=== PATIENT | female | born 1950 | race Caucasian/White ===

== ENCOUNTER 2019-01-25 20:51 | Inpatient (IN) | payer MEDICARE, BC ==
[~2019-01-25] VITALS: Ht 162.6 cm; Wt 153.0 kg
[2019-01-25] MEDS ORDERED: normal saline 1000ML IV soln IVB ONE (21:10)
[2019-01-25] MEDS ORDERED: CefTRIAXone/D5W-Rocephin 1gm 50 ML IV ONE ×2 (21:10→22:20)
[2019-01-25] MEDS ORDERED: fentaNYL/PF 50MCG/1 ML 2ML syringe IV ONE (21:15)
[2019-01-25] MEDS ORDERED: ondansetron/PF 4mg/2ml inj IV ONE (21:15)
[2019-01-25] MEDS ORDERED: acetaminophen 325mg tablet PO ONE (21:20)
[2019-01-25 21:51] LABS: PARTIAL THROMBOPLASTIN TIME 28 SECONDS (22-32)
[2019-01-25 22:01] LABS: ALANINE AMINOTRANSFERASE 19 U/L (12-78); ALBUMIN 3.3 G/DL (3.4-5.0); ALBUMIN/GLOBULIN RATIO 0.8 (1.1-1.5); ALKALINE PHOSPHATASE 73 IU/L (46-116); ANION GAP 12 (8-16); ASPARTATE AMINO TRANSFERASE 26 U/L (10-37); BILIRUBIN,TOTAL 0.9 MG/DL (0.1-1.0); BLOOD UREA NITROGEN 16 MG/DL (7-18); BUN/CREATININE RATIO 11.3 (6.6-38.0); CALCIUM 9.1 MG/DL (8.5-10.1); CHLORIDE 105 MMOL/L (99-107); CREATININE 1.42 MG/DL (0.40-0.90); GLUCOSE 125 MG/DL (70-104); SODIUM 141 MMOL/L (135-145); TOTAL CARBON DIOXIDE 24.1 MMOL/L (24-32); TOTAL PROTEIN 7.6 G/DL (6.4-8.2); eGFR 36 ML/MIN
[2019-01-25 22:02] LABS: BASOPHILS # (AUTO) 0.3 X10'3 (0-0.2); BASOPHILS % (AUTO) 1.2 % (0-1); EOSINOPHILS % (AUTO) 0 % (0-6); HEMATOCRIT 54.4 % (35.0-45.0); HEMOGLOBIN 17.7 g/dl (12.0-16.0); LYMPHOCYTES # (AUTO) 0.5 X10'3 (1.1-4.8); LYMPHOCYTES % (AUTO) 2.2 % (21-51); MEAN CORPUSCULAR HEMOGLOBIN 28.2 PG (27.0-31.0); MEAN CORPUSCULAR HGB CONC 32.5 g/dL (33.0-36.5); MEAN CORPUSCULAR VOLUME 86.6 FL (78-98); MEAN PLATELET VOLUME 10.2 FL (7.4-10.4); MONOCYTES # (AUTO) 0.8 X10'3 (0-0.9); MONOCYTES % (AUTO) 3.6 % (2-12); NEUTROPHILS # (AUTO) 20.2 X10'3 (1.8-7.7); PLATELET COUNT 189 X10'3 (140-440); POTASSIUM 4.2 MMOL/L (3.5-5.1); RED BLOOD COUNT 6.28 X10'6 (4.20-5.60); RED CELL DISTRIBUTION WIDTH 15.6 % (11.5-14.5); WHITE BLOOD COUNT 21.8 X10'3 (4.5-11.0)
[2019-01-25] MEDS ORDERED: levoFLOXACIN-Levaquin 750MG/D5 150 ML IV STA (22:17)
[2019-01-25] MEDS ORDERED: normal saline 1000ml 1,000 ML IV ONE (22:20)
--- NOTE | 2019-01-25 22:21 | NUR ---
PT UP TO USE BEDSIDE COMMODE
[2019-01-25] MEDS ORDERED: FLUT1BLS3 INH (23:01)
[2019-01-25] MEDS ORDERED: IBUP-1986 PO (23:01)
[2019-01-25] MEDS ORDERED: LISI10TA4 PO (23:01)
[2019-01-25] MEDS ORDERED: FLUT1DIS7 INH (23:09)
[2019-01-25] MEDS ORDERED: FURO20TA4 PO (23:09)
[2019-01-25] MEDS ORDERED: METF500T PO (23:09)
[2019-01-25] MEDS ORDERED: IPRA4AER IH (23:09)
[2019-01-25] MEDS ORDERED: BACL10TA PO (23:09)
[2019-01-25] MEDS ORDERED: OXYB5TAB16 PO (23:09)
[2019-01-25] MEDS ORDERED: ROPI0.252 PO (23:09)
[2019-01-25] MEDS ORDERED: AMLO10TA PO (23:09)
[2019-01-25] MEDS ORDERED: TIOT18CA3 INH (23:09)
[2019-01-25] MEDS ORDERED: SIMV10TA2 PO (23:09)
[2019-01-25] MEDS ORDERED: POT CHLORIDE PO (23:09)
[2019-01-25] MEDS ORDERED: MAGN27TA2 PO (23:13)
[2019-01-25] MEDS ORDERED: ASPI-1265 PO (23:13)
[2019-01-26] VITALS (24 sets, daily range): BP systolic 72–227; BP diastolic 43–108
[2019-01-26] MEDS ORDERED: fentaNYL/PF 50MCG/1 ML 2ML syringe IV ONE (00:25)
[2019-01-26] MEDS ORDERED: ketamine 10mg/ml 20ml inj 30 MG in normal saline 100ml IV soln 97 ML IV ONE (00:55)
[2019-01-26] MEDS ORDERED: morphine 2 MG/ML inj. syringe IV PRN (01:05)
[2019-01-26] MEDS ORDERED: morphine 4 MG/ML inj SYRINge IV PRN ×3 (01:05→15:00)
[2019-01-26] MEDS ORDERED: potassium Cl 20mEq/100mL bag 100 ML IV PRN (01:05)
[2019-01-26] MEDS ORDERED: potassium Cl 20 mEq SR tablet PO PRN (01:05)
[2019-01-26] MEDS ORDERED: ondansetron/PF 4mg/2ml inj IV PRN ×3 (01:05→17:35)
[2019-01-26] MEDS ORDERED: acetaminophen 650mg rectal suppository RC PRN (01:05)
[2019-01-26] MEDS: K, MAG and/or Phos replacement - Verify level? MC SCH ×2 (01:05→08:00)
[2019-01-26] MEDS ORDERED: glucagon, human recombinant 1mg kit SUBCUT PRN (01:30)
[2019-01-26] MEDS ORDERED: dextrose 50%-water 50ml dispensing syringe IV PRN ×2 (01:30)
[2019-01-26] MEDS ORDERED: insulin Lispro (HumaLOG) vial - multi-dose SQ SCH (01:30)
[2019-01-26] MEDS ORDERED: MESSAGE TO PHARMACY PO ONE (01:30)
[2019-01-26] MEDS ORDERED: dextrose ORAL solution 15 GM/59 ML bottle PO PRN ×2 (01:30)
[2019-01-26] MEDS ORDERED: ipratropium/albuterol 3ml nebule IH PRN (02:10)
[2019-01-26] MEDS ORDERED: morphine 4 MG/ML inj SYRINge IV ONE (02:15)
[2019-01-26] MEDS: NORepinephrine 8mg/ 250ml NS 250 ML IV SCH ×2 (02:21→20:37)
--- NOTE | 2019-01-26 02:23 | NUR ---
MD AT FOR CENTRAL LINE. INSTRUCTED TO INCREASE NOREPI TO 5 MG/MIN.
--- NOTE | 2019-01-26 03:00 | NUR ---
Patient in room CICU 2011. I have received report from Wm FLORES and had the opportunity to ask questions and assume patient care.
[2019-01-26] MEDS: normal saline 1000ml 1,000 ML IV SCH ×3 (03:02→21:05)
[2019-01-26 03:18] LABS: CLARITY,URINE CLOUDY (Clear); COLOR,URINE AMBER (Yellow); GLUCOSE, URINE NEGATIVE (Neg); KETONES,URINE TRACE mg/dl (Neg); LEUKOCYTE ESTERASE ,URINE MODERATE (Neg); NITRITES, URINE NEGATIVE (Neg); OCCULT BLOOD,URINE LARGE (Neg); PH,URINE 5.5 (4.8-8.0); PROTEIN,URINE 100 mg/dl (Neg); UROBILINOGEN,URINE 0.2 E.U/dL (0.2-1.0)
[2019-01-26 03:19] LABS: UA COLLECTION TYPE FOLEY CATH
[2019-01-26 03:24] LABS: BACTERIA,URINE 4+ /HPF (Neg); MUCUS STRANDS NONE SEEN /LPF (Neg); SQUAMOUS EPITHELIAL CELL,UR FEW /LPF (FEW); TRANSITIONAL EPI CELLS,URINE FEW /HPF; WBC,URINE 50-100 /HPF (0-4)
[2019-01-26] MEDS: acetaminophen 325mg tablet PO PRN ×3 (04:16→19:00)
[2019-01-26 04:51] LABS: ANION GAP 9 (8-16); BLOOD UREA NITROGEN 17 MG/DL (7-18); BUN/CREATININE RATIO 12.7 (6.6-38.0); CALCIUM 6.2 MG/DL (8.5-10.1); CHLORIDE 109 MMOL/L (99-107); CREATININE 1.34 MG/DL (0.40-0.90); GLUCOSE 111 MG/DL (70-104); SODIUM 141 MMOL/L (135-145); TOTAL CARBON DIOXIDE 23.3 MMOL/L (24-32); eGFR 39 ML/MIN
[2019-01-26 05:01] LABS: OXYGEN SATURATION (MIXED VEN) 66.3 % (60-80); PO2 MIXED VENOUS (TEMP COR) 44.9 mmHg (35-46)
[2019-01-26 05:44] LABS: TROPONIN I < 0.04 NG/ML (0.0-0.05)
[2019-01-26 06:08] LABS: EOSINOPHILS % (AUTO) 0 % (0-6); MEAN CORPUSCULAR HEMOGLOBIN 28.1 PG (27.0-31.0); MEAN CORPUSCULAR HGB CONC 31.9 g/dL (33.0-36.5)
[2019-01-26 06:10] LABS: BASOPHILS # (AUTO) 0.3 X10'3 (0-0.2); BASOPHILS % (AUTO) 1.2 % (0-1); HEMATOCRIT 47.3 % (35.0-45.0); HEMOGLOBIN 15.1 g/dl (12.0-16.0); LYMPHOCYTES # (AUTO) 0.6 X10'3 (1.1-4.8); MEAN PLATELET VOLUME 10.6 FL (7.4-10.4); MONOCYTES # (AUTO) 0.8 X10'3 (0-0.9); MONOCYTES % (AUTO) 2.6 % (2-12); NEUTROPHILS # (AUTO) 27.2 X10'3 (1.8-7.7); NEUTROPHILS % (AUTO) 94.2 % (42-75); PLATELET COUNT 166 X10'3 (140-440); RED BLOOD COUNT 5.37 X10'6 (4.20-5.60); RED CELL DISTRIBUTION WIDTH 15.6 % (11.5-14.5)
--- NOTE | 2019-01-26 06:13 | NUR ---
Problems reprioritized. Patient report given, questions answered & plan of care reviewed with Teresa FLORES.
[2019-01-26 06:35] LABS: WHITE BLOOD COUNT 28.9 X10'3 (4.5-11.0)
[2019-01-26 06:42] LABS: LARGE PLATELETS FEW; PLATELET ESTIMATE NORMAL; TOTAL CELLS COUNTED 100
[2019-01-26 06:43] LABS: ANISOCYTOSIS FEW; TOXIC VACUOLATION 1+
[2019-01-26] MEDS: amLODIPine 5mg tablet PO SCH (07:09)
[2019-01-26] MEDS: lactobacillus rhamnosus 10,000 MMU CELLS/CAPSULE PO SCH ×3 (07:24→20:38)
[2019-01-26] MEDS: aspirin 81mg tab.chew PO SCH (07:24)
[2019-01-26] MEDS: oxybutynin 5mg tablet PO SCH ×3 (07:24→20:37)
[2019-01-26] MEDS: pantoprazole 40 MG vial IV SCH (07:24)
[2019-01-26] MEDS ORDERED: ipratropium/albuterol 3ml nebule ONE (07:39)
[2019-01-26] MEDS: ipratropium/albuterol 3ml nebule NEB SCH ×4 (07:40→23:28)
[2019-01-26] MEDS: budesonide 0.5mg/2ml UD nebule IH SCH ×2 (07:41→20:00)
[2019-01-26] MEDS ORDERED: non-formulary drug (Fluticasone/Vilanterol (Breo Ellipta 200-25 Mcg INH) 1 PUFF) INH SCH (08:00)
[2019-01-26] MEDS ORDERED: ipratropium 0.5 MG/2.5ML nebule IH SCH (08:00)
[2019-01-26] MEDS ORDERED: albuterol 2.5 MG/3 ML nebule NEB SCH (08:00)
[2019-01-26] MEDS: piperacillin/tazo 4.5gm/100ml 100 ML IV SCH ×2 (09:56→19:02)
[2019-01-26] MEDS ORDERED: hydrALAZINE 20mg/ml inj. IV PRN (15:00)
[2019-01-26] MEDS ORDERED: ringers solution, lacted 1,000 ML IV SCH ×2 (15:00→17:31)
[2019-01-26] MEDS ORDERED: fentaNYL/PF 50MCG/1 ML 2ML syringe IV PRN ×2 (15:00)
[2019-01-26] MEDS ORDERED: enalaprilat dihydrate 2.5mg/2ml vial IV PRN (15:00)
[2019-01-26] MEDS ORDERED: ringers solution, lacted 1,000 ML IV ONE (15:00)
[2019-01-26] MEDS ORDERED: iohexol 300 MG/1 ML 50ml polymer ONE (16:31)
[2019-01-26] MEDS ORDERED: midazolam 2 mg/2 ml injection ONE (16:55)
[2019-01-26] MEDS ORDERED: fentaNYL/PF 50MCG/1 ML 2ML syringe ONE (16:55)
[2019-01-26] MEDS ORDERED: etomidate 2mg/ml inj. ONE (16:56)
[2019-01-26] MEDS ORDERED: succinylcholine 20mg/ml inj IV ONE (16:57)
[2019-01-26] MEDS ORDERED: MIDAZolam 1mg/ml 10ml vial ONE (17:16)
[2019-01-26] MEDS ORDERED: rocuronium 10mg/ml inj IV ONE (17:22)
[2019-01-26] MEDS ORDERED: ipratropium/albuterol 3ml nebule IH ONE (17:35)
[2019-01-26] MEDS: FENTANYL-0.9 % NACL/PF 100 ML IV PRN (18:33)
[2019-01-26] MEDS: midazolam 100mg in NS 100ml 100 ML IV PRN (18:34)
[2019-01-26] MEDS ORDERED: labetalol 20mg/4ml (5mg/ml) syringe IV PRN (18:50)
[2019-01-26] MEDS ORDERED: acetaminophen 1,000mg/100ml IV 100 ML IV STA (19:14)
[2019-01-26 19:18] LABS: BASOPHILS % (AUTO) 0.2 % (0-1); EOSINOPHILS % (AUTO) 0 % (0-6); HEMATOCRIT 50.7 % (35.0-45.0); HEMOGLOBIN 16.4 g/dl (12.0-16.0); LYMPHOCYTES # (AUTO) 0.6 X10'3 (1.1-4.8); LYMPHOCYTES % (AUTO) 3.5 % (21-51); MEAN CORPUSCULAR HEMOGLOBIN 28.9 PG (27.0-31.0); MEAN CORPUSCULAR HGB CONC 32.4 g/dL (33.0-36.5); MEAN CORPUSCULAR VOLUME 89.2 FL (78-98); MEAN PLATELET VOLUME 10.5 FL (7.4-10.4); MONOCYTES # (AUTO) 0.3 X10'3 (0-0.9); MONOCYTES % (AUTO) 1.6 % (2-12); NEUTROPHILS # (AUTO) 16.3 X10'3 (1.8-7.7); NEUTROPHILS % (AUTO) 94.7 % (42-75); PLATELET COUNT 150 X10'3 (140-440); RED BLOOD COUNT 5.68 X10'6 (4.20-5.60); RED CELL DISTRIBUTION WIDTH 15.7 % (11.5-14.5); WHITE BLOOD COUNT 17.2 X10'3 (4.5-11.0)
[2019-01-26 19:31] LABS: ALANINE AMINOTRANSFERASE 28 U/L (12-78); ALBUMIN 2.5 G/DL (3.4-5.0); ALBUMIN/GLOBULIN RATIO 0.6 (1.1-1.5); ALKALINE PHOSPHATASE 55 IU/L (46-116); ANION GAP 11 (8-16); ASPARTATE AMINO TRANSFERASE 27 U/L (10-37); BILIRUBIN,TOTAL 0.9 MG/DL (0.1-1.0); BLOOD UREA NITROGEN 30 MG/DL (7-18); BUN/CREATININE RATIO 15.1 (6.6-38.0); CALCIUM 7.6 MG/DL (8.5-10.1); CHLORIDE 106 MMOL/L (99-107); CREATININE 1.99 MG/DL (0.40-0.90); GLUCOSE 145 MG/DL (70-104); MAGNESIUM 1.7 MG/DL (1.5-2.4); PHOSPHORUS 5.4 MG/DL (2.3-4.5); SODIUM 140 MMOL/L (135-145); TOTAL CARBON DIOXIDE 23.5 MMOL/L (24-32); TOTAL PROTEIN 6.7 G/DL (6.4-8.2); eGFR 25 ML/MIN
[2019-01-26 19:32] LABS: PARTIAL THROMBOPLASTIN TIME 35 SECONDS (22-32); POTASSIUM 4.9 MMOL/L (3.5-5.1)
[2019-01-26 20:05] LABS: ABG HCO3 20.7 mmol/L (22.0-26.0); ABG OXYGEN SATURATION 95.5 % (95-98); ABG PCO2 (T) 68.2 mmHg (35.0-45.0); ABG PH (T) 7.118 (7.350-7.450); ABG PO2 (T) 102.9 mmHg (83-108); FCOHb 1.2 % (0.5-1.5); FMetHb 0.5 % (0.3-1.12); FO2Hb 93.9 % (94-100); MINUTE VOLUME 9 L/min; PEEP 5 cm H2O; RESPIRATORY RATE 18 b/min; RESPIRATORY RATE (OBSERVED) 20 b/min; TOTAL HEMOGLOBIN 16.6 G/dl (12.0-16.0)
--- NOTE | 2019-01-26 20:06 | NUR ---
Patient in room CICU 2011. I have received report from TWAN FLORES and had the opportunity to ask questions and assume patient care.
[2019-01-26] MEDS ORDERED: DOBUTamine-DoBUTrex 500mg/D5W 250 ML IV SCH (20:15)
[2019-01-26] MEDS: atorvastatin 10mg tablet PO SCH ×2 (20:38→21:00)
[2019-01-26] MEDS ORDERED: methylPREDNISolone sod succ 125mg/2ml vial IV ONE (20:45)
[2019-01-26] MEDS: ROPINIRole 0.25mg tablet PO SCH (21:00)
[2019-01-26] MEDS: insulin glargine (Lantus) pen - multi-dose SQ SCH (21:00)
[2019-01-26] MEDS ORDERED: vasoPRESSIN 20 units/ml inj. ONE ×2 (21:03→21:07)
[2019-01-26] MEDS: vasopressin inj. 20 UNIT in normal saline 100ml IV soln 39 ML IV SCH (21:15)
--- NOTE | 2019-01-26 23:38 | NUR ---
pt returned directly from OR, appearing unstable and on the ventilator at change of shift. x ray taken when pt arrived. her SBP was 200-220s, temp was 38.6 and eventually climbed to 40 degrees within an hour despite cooling measures. during this time I phoned Dr Kelly, who was still covering the day shift, to update him on pt. I gave 10mg labetalol IVP per his orders with effect to hypertension. we initiated cooling measures with ice, cooling blanket, fans, as well as admin of PO tylenol via an OG that was placed. Andrew ferguson RN soon after spoke with Linda party plan sales unit sales leader and got an order for IV tylenol. this was effective in bringing down the temp which is now 38.1. starting doses of fentanyl and versed were began, where they remain currently at 2mg versed and 25mcg fentanyl. pt has been waking periodically and is able to follow commands however she is anxious with care. the patiently steadily declined blood pressure cash, and began requiring levophed as she had before and during surgery. the levophed eventually reached a max of 40mcg. when the pt began approaching the max dose i again phoned Linda. he wanted to trial a dobutamine gtt at 5mcg, which was not effective. blood pressure continued to decline with MAP in 50s. phoned him again, received orders for vasopressin gtt as well as steroid IVP. at this point the pt began to turn around and her BP has improved. she is requiring 20mcg of levophed and 1.8 of vasopressin with MAP in the 70s, SPB 90s. pt fiO2 just turned down from 75% to 85%. the pt daughter was briefly at bedside after pt return from OR and was updated on pt situation. her contact info is in physical chart. pt urine is yellow and cloudy, minimal output. small amount of dark green out of OGT. lt radial art line was difficult to place per OR team. it is extremely positional, however it does match cuff pressure when the waveform is adequate.
[2019-01-27] VITALS (23 sets, daily range): BP systolic 98–134; BP diastolic 57–84
[2019-01-27] MEDS: piperacillin/tazo 4.5gm/100ml 100 ML IV SCH ×3 (01:06→16:28)
[2019-01-27 02:34] LABS: BASOPHILS # (AUTO) 0.1 X10'3 (0-0.2); BASOPHILS % (AUTO) 0.3 % (0-1); EOSINOPHILS % (AUTO) 0 % (0-6); HEMATOCRIT 47.1 % (35.0-45.0); LYMPHOCYTES # (AUTO) 0.6 X10'3 (1.1-4.8); LYMPHOCYTES % (AUTO) 2.4 % (21-51); MEAN CORPUSCULAR HEMOGLOBIN 28.1 PG (27.0-31.0); MEAN CORPUSCULAR HGB CONC 31.9 g/dL (33.0-36.5); MEAN CORPUSCULAR VOLUME 88.3 FL (78-98); MEAN PLATELET VOLUME 10.2 FL (7.4-10.4); MONOCYTES # (AUTO) 0.5 X10'3 (0-0.9); NEUTROPHILS # (AUTO) 23.2 X10'3 (1.8-7.7); NEUTROPHILS % (AUTO) 95.3 % (42-75); PLATELET COUNT 150 X10'3 (140-440); RED BLOOD COUNT 5.34 X10'6 (4.20-5.60); RED CELL DISTRIBUTION WIDTH 15.6 % (11.5-14.5); WHITE BLOOD COUNT 24.4 X10'3 (4.5-11.0)
[2019-01-27 02:46] LABS: ALANINE AMINOTRANSFERASE 26 U/L (12-78); ALBUMIN 2.2 G/DL (3.4-5.0); ALBUMIN/GLOBULIN RATIO 0.6 (1.1-1.5); ALKALINE PHOSPHATASE 51 IU/L (46-116); ANION GAP 16 (8-16); ASPARTATE AMINO TRANSFERASE 21 U/L (10-37); BILIRUBIN,TOTAL 0.9 MG/DL (0.1-1.0); BLOOD UREA NITROGEN 36 MG/DL (7-18); BUN/CREATININE RATIO 15.5 (6.6-38.0); CALCIUM 7.6 MG/DL (8.5-10.1); CHLORIDE 106 MMOL/L (99-107); CREATININE 2.32 MG/DL (0.40-0.90); GLUCOSE 197 MG/DL (70-104); MAGNESIUM 1.6 MG/DL (1.5-2.4); PHOSPHORUS 4.3 MG/DL (2.3-4.5); SODIUM 139 MMOL/L (135-145); TOTAL CARBON DIOXIDE 17.2 MMOL/L (24-32); TOTAL PROTEIN 6.2 G/DL (6.4-8.2); eGFR 21 ML/MIN
[2019-01-27 02:48] LABS: POTASSIUM 4.5 MMOL/L (3.5-5.1)
--- NOTE | 2019-01-27 03:09 | NUR ---
pt down to 8mcg of levophed, vasopressin is off.
[2019-01-27] MEDS: NORepinephrine 8mg/ 250ml NS 250 ML IV SCH ×2 (04:27→09:42)
[2019-01-27 05:35] LABS: ABG BASE EXCESS -5.6 mmol/L (-2.0-3.0); ABG HCO3 17.9 mmol/L (22.0-26.0); ABG OXYGEN SATURATION 95.5 % (95-98); ABG PCO2 (T) 30.4 mmHg (35.0-45.0); ABG PH (T) 7.389 (7.350-7.450); ABG PO2 (T) 71.6 mmHg (83-108); FCOHb 0.3 % (0.5-1.5); FMetHb 0.2 % (0.3-1.12); MINUTE VOLUME 16 L/min; PEEP 5 cm H2O; RESPIRATORY RATE 22 b/min; RESPIRATORY RATE (OBSERVED) 22 b/min; TOTAL HEMOGLOBIN 15.6 G/dl (12.0-16.0)
[2019-01-27] MEDS ORDERED: famotidine/PF 10 mg/ml inj IV ONE (06:00)
--- NOTE | 2019-01-27 06:15 | NUR ---
Problems reprioritized. Patient report given, questions answered & plan of care reviewed with TWAN FLORES.
--- NOTE | 2019-01-27 06:32 | NUR ---
Patient in room CICU 2011. I have received report from SANDRA Key and had the opportunity to ask questions and assume patient care.
[2019-01-27] MEDS: normal saline 1000ml 1,000 ML IV SCH (07:05)
[2019-01-27] MEDS: oxybutynin 5mg tablet PO SCH ×2 (07:39→20:39)
[2019-01-27] MEDS: lactobacillus rhamnosus 10,000 MMU CELLS/CAPSULE PO SCH ×2 (07:39→20:39)
[2019-01-27] MEDS: pantoprazole 40 MG vial IV SCH (07:39)
[2019-01-27] MEDS: aspirin 81mg tab.chew PO SCH (07:39)
[2019-01-27] MEDS: K, MAG and/or Phos replacement - Verify level? MC SCH (08:00)
[2019-01-27] MEDS: amLODIPine 5mg tablet PO SCH (08:00)
[2019-01-27] MEDS: ipratropium/albuterol 3ml nebule NEB SCH ×3 (08:10→22:48)
[2019-01-27] MEDS: budesonide 0.5mg/2ml UD nebule IH SCH ×2 (08:10→18:54)
[2019-01-27] MEDS ORDERED: dextrose 50%-water 50ml dispensing syringe IV PRN (09:35)
--- NOTE | 2019-01-27 09:41 | NUR ---
Levophed back on at 2mcg/hr for persistent low sbp and map less than 60.
[2019-01-27] MEDS: methylPREDNISolone sod succ 125mg/2ml vial IV SCH ×3 (09:51→20:00)
[2019-01-27] MEDS: insulin regular, human 100 UNIT in normal saline 100ml IV soln 99 ML IV SCH ×2 (11:11)
[2019-01-27] MEDS ORDERED: methylPREDNISolone sod succ 125mg/2ml vial IV ONE (14:25)
--- NOTE | 2019-01-27 14:54 | NUR ---
TF consult: Pt currently intubated s/p ureteric stone removal with cystoscopy and ureteral stent placement per MD notes. TF recommendations below calculated to meet 100% of patient's estimated nutrient needs. Recommend Glucerna 1.2 with goal rate of 85 mL/hr however pt may benefit from formula change to Vital High Protein once back in stock as current recommended TF rate will meet minimum protein requirements for pt. Pt admit with sepsis and nephrolithiasis. Toni score 12, skin intact per physical assessment. LBM 01/26. Will continue to follow. Recommendations: 1) Continuous TF using Glucerna 1.2 via OG tube to begin at 20 mL/hr and advance by 20 mL Q8H as tolerated to goal rate of 85 mL/hr to provide: 2040 mL total volume/day, 2448 kcal, 122 g protein, and 1642 mL/water 2) Will f/u tomorrow to discuss fluid flushes with personnel assistant 3) Prealbumin q /; daily weights 4) Monitor need for change in formula 5) Once extubated advance to heart healthy CHO controlled diet as medically indicated Addendum: 01/27/19 at [address] Amended: Links added.
[2019-01-27] MEDS ORDERED: VANCOMYCIN LEVEL IV ONE (15:30)
[2019-01-27] MEDS: midazolam 100mg in NS 100ml 100 ML IV PRN (16:26)
[2019-01-27] MEDS: atorvastatin 10mg tablet PO SCH (20:39)
[2019-01-27] MEDS: ROPINIRole 0.25mg tablet PO SCH (20:39)
[2019-01-27] MEDS: insulin glargine (Lantus) pen - multi-dose SQ SCH (21:00)
[2019-01-28] VITALS (23 sets, daily range): BP systolic 98–135; BP diastolic 59–84
[2019-01-28] MEDS: normal saline 1000ml 1,000 ML IV SCH ×2 (00:15→03:05)
[2019-01-28] MEDS: piperacillin/tazo 4.5gm/100ml 100 ML IV SCH ×2 (00:15→07:14)
[2019-01-28 02:57] LABS: BASOPHILS % (AUTO) 0.2 % (0-1); EOSINOPHILS % (AUTO) 0 % (0-6); HEMATOCRIT 42.8 % (35.0-45.0); LYMPHOCYTES # (AUTO) 0.7 X10'3 (1.1-4.8); MEAN CORPUSCULAR HEMOGLOBIN 28.3 PG (27.0-31.0); MEAN CORPUSCULAR HGB CONC 32.7 g/dL (33.0-36.5); MEAN CORPUSCULAR VOLUME 86.5 FL (78-98); MONOCYTES # (AUTO) 0.5 X10'3 (0-0.9); MONOCYTES % (AUTO) 2.6 % (2-12); NEUTROPHILS # (AUTO) 17.4 X10'3 (1.8-7.7); NEUTROPHILS % (AUTO) 93.2 % (42-75); PLATELET COUNT 112 X10'3 (140-440); RED BLOOD COUNT 4.95 X10'6 (4.20-5.60); RED CELL DISTRIBUTION WIDTH 15.6 % (11.5-14.5); WHITE BLOOD COUNT 18.6 X10'3 (4.5-11.0)
[2019-01-28] MEDS: methylPREDNISolone sod succ 125mg/2ml vial IV SCH ×2 (03:03→15:23)
[2019-01-28 03:14] LABS: ALANINE AMINOTRANSFERASE 23 U/L (12-78); ALBUMIN 1.9 G/DL (3.4-5.0); ALBUMIN/GLOBULIN RATIO 0.5 (1.1-1.5); ALKALINE PHOSPHATASE 43 IU/L (46-116); ANION GAP 15 (8-16); ASPARTATE AMINO TRANSFERASE 14 U/L (10-37); BILIRUBIN,TOTAL 0.4 MG/DL (0.1-1.0); BLOOD UREA NITROGEN 53 MG/DL (7-18); BUN/CREATININE RATIO 24.1 (6.6-38.0); CHLORIDE 108 MMOL/L (99-107); GLUCOSE 163 MG/DL (70-104); MAGNESIUM 1.9 MG/DL (1.5-2.4); PHOSPHORUS 3.6 MG/DL (2.3-4.5); POTASSIUM 3.4 MMOL/L (3.5-5.1); SODIUM 142 MMOL/L (135-145); TOTAL CARBON DIOXIDE 18.6 MMOL/L (24-32); TOTAL PROTEIN 5.7 G/DL (6.4-8.2); eGFR 22 ML/MIN
[2019-01-28] MEDS: ipratropium/albuterol 3ml nebule NEB SCH ×4 (03:15→21:00)
[2019-01-28 03:41] LABS: LARGE PLATELETS FEW; PLATELET ESTIMATE DECREASED
[2019-01-28] MEDS: FENTANYL-0.9 % NACL/PF 100 ML IV PRN (03:53)
[2019-01-28 04:15] LABS: ABG BASE EXCESS -3.5 mmol/L (-2.0-3.0); ABG HCO3 19.1 mmol/L (22.0-26.0); ABG OXYGEN SATURATION 92.1 % (95-98); ABG PCO2 (T) 27.8 mmHg (35.0-45.0); ABG PH (T) 7.452 (7.350-7.450); FCOHb 0.3 % (0.5-1.5); FMetHb 0.1 % (0.3-1.12); FO2Hb 91.7 % (94-100); PATIENT TEMPERATURE 36.2; PEEP 5 cm H2O; RESPIRATORY RATE 22 b/min; RESPIRATORY RATE (OBSERVED) 22 b/min; TOTAL HEMOGLOBIN 15.2 G/dl (12.0-16.0)
[2019-01-28] MEDS: insulin regular, human 100 UNIT in normal saline 100ml IV soln 99 ML IV SCH ×4 (05:32→21:02)
[2019-01-28] MEDS: vasopressin inj. 20 UNIT in normal saline 100ml IV soln 39 ML IV SCH (06:25)
--- NOTE | 2019-01-28 06:36 | NUR ---
Problems reprioritized. Patient report given, questions answered & plan of care reviewed with Indy FLORES.
--- NOTE | 2019-01-28 06:45 | NUR ---
Patient in room CICU 2011. I have received report from SANDRA Noriega and had the opportunity to ask questions and assume patient care.
[2019-01-28] MEDS: aspirin 81mg tab.chew PO SCH (07:14)
[2019-01-28] MEDS: lactobacillus rhamnosus 10,000 MMU CELLS/CAPSULE PO SCH ×2 (07:14→20:11)
[2019-01-28] MEDS: oxybutynin 5mg tablet PO SCH ×2 (07:14→20:11)
[2019-01-28] MEDS: potassium Cl 20mEq/100mL bag 100 ML IV PRN ×2 (07:15→08:02)
[2019-01-28] MEDS: K, MAG and/or Phos replacement - Verify level? MC SCH (08:00)
[2019-01-28] MEDS ORDERED: methylPREDNISolone sod succ 125mg/2ml vial IV SCH (08:00)
[2019-01-28] MEDS: amLODIPine 5mg tablet PO SCH (08:00)
[2019-01-28] MEDS: pantoprazole 40 MG vial IV SCH (08:02)
[2019-01-28] MEDS: budesonide 0.5mg/2ml UD nebule IH SCH ×2 (09:52→21:04)
[2019-01-28] MEDS ORDERED: sodium bicarbonate (8.4%) inj. 150 MEQ in dextrose 5%-water 1,000 ML IV SCH (09:55)
[2019-01-28] MEDS: sodium bicarbonate inj. 75 ML in dextrose 5% water 500ml 500 ML IV SCH ×2 (11:14→20:11)
[2019-01-28] MEDS: heparin, porcine 5000 units/ml vial SQ SCH ×2 (12:09→20:12)
[2019-01-28] MEDS: midazolam 100mg in NS 100ml 100 ML IV PRN (15:23)
[2019-01-28] MEDS: piperacillin/tazo 3.375gm/50ml 50 ML IV SCH (15:25)
--- NOTE | 2019-01-28 18:35 | NUR ---
Patient in room CICU 2012. I have received report from Indy FLORES, and had the opportunity to ask questions and assume patient care.
--- NOTE | 2019-01-28 18:38 | NUR ---
Problems reprioritized. Patient report given, questions answered & plan of care reviewed with SANDRA Neff.
--- NOTE | 2019-01-28 19:45 | NUR ---
PT is intubated and mechanically vented, tolerating settings well with no s/s of distress noted at this time. VSS. OT has OG with TF running @ 60ml/hr, will increase to goal as PT tolerated. Allison in place draining to gravity. Bed is locked and low. Bilat soft wrist restraints in place and secure. Will continue to monitor.
[2019-01-28] MEDS: ROPINIRole 0.25mg tablet PO SCH (20:12)
[2019-01-28] MEDS: atorvastatin 10mg tablet PO SCH (20:12)
[2019-01-28] MEDS: insulin glargine (Lantus) pen - multi-dose SQ SCH (20:12)
--- NOTE | 2019-01-28 23:00 | NUR ---
PT resting with no s/s of distress noted at this time. VSS. Bed is locked and low. Bilat soft wrist restraints remain in place and secure. Will continue to monitor.
[2019-01-29] VITALS (24 sets, daily range): BP systolic 103–167; BP diastolic 54–99
[2019-01-29] MEDS: piperacillin/tazo 3.375gm/50ml 50 ML IV SCH ×3 (00:59→15:55)
[2019-01-29] MEDS: methylPREDNISolone sod succ 125mg/2ml vial IV SCH ×3 (00:59→15:55)
--- NOTE | 2019-01-29 02:30 | NUR ---
Insulin gtt turned off per protocol d/t Blood sugar of 80. Will continue to monitor.
[2019-01-29] MEDS: ipratropium/albuterol 3ml nebule NEB SCH ×4 (03:06→21:39)
[2019-01-29 03:55] LABS: ABG BASE EXCESS -3.5 mmol/L (-2.0-3.0); ABG HCO3 22.8 mmol/L (22.0-26.0); ABG OXYGEN SATURATION 90.7 % (95-98); ABG PCO2 (T) 43.6 mmHg (35.0-45.0); ABG PH (T) 7.331 (7.350-7.450); ABG PO2 (T) 57.2 mmHg (83-108); ALLEN'S TEST Positive; FCOHb 0.3 % (0.5-1.5); FMetHb 0.1 % (0.3-1.12); FO2Hb 90.3 % (94-100); MINUTE VOLUME 11 L/min; PATIENT TEMPERATURE 35.9; PEEP 5 cm H2O; RESPIRATORY RATE 20 b/min; RESPIRATORY RATE (OBSERVED) 20 b/min; TOTAL HEMOGLOBIN 15.4 G/dl (12.0-16.0)
[2019-01-29 04:29] LABS: BASOPHILS % (AUTO) 0.1 % (0-1); EOSINOPHILS % (AUTO) 0 % (0-6); HEMATOCRIT 44.9 % (35.0-45.0); HEMOGLOBIN 14.6 g/dl (12.0-16.0); LYMPHOCYTES # (AUTO) 0.7 X10'3 (1.1-4.8); MEAN CORPUSCULAR HEMOGLOBIN 28.4 PG (27.0-31.0); MEAN CORPUSCULAR HGB CONC 32.5 g/dL (33.0-36.5); MEAN CORPUSCULAR VOLUME 87.1 FL (78-98); MEAN PLATELET VOLUME 11.1 FL (7.4-10.4); MONOCYTES # (AUTO) 1.1 X10'3 (0-0.9); MONOCYTES % (AUTO) 6.4 % (2-12); NEUTROPHILS # (AUTO) 15.6 X10'3 (1.8-7.7); NEUTROPHILS % (AUTO) 89.5 % (42-75); PLATELET COUNT 100 X10'3 (140-440); RED BLOOD COUNT 5.16 X10'6 (4.20-5.60); RED CELL DISTRIBUTION WIDTH 15.7 % (11.5-14.5); WHITE BLOOD COUNT 17.4 X10'3 (4.5-11.0)
[2019-01-29 05:27] LABS: ALANINE AMINOTRANSFERASE 29 U/L (12-78); ALBUMIN/GLOBULIN RATIO 0.5 (1.1-1.5); ALKALINE PHOSPHATASE 64 IU/L (46-116); ANION GAP 13 (8-16); ASPARTATE AMINO TRANSFERASE 18 U/L (10-37); BILIRUBIN,TOTAL 0.3 MG/DL (0.1-1.0); BLOOD UREA NITROGEN 61 MG/DL (7-18); BUN/CREATININE RATIO 33.3 (6.6-38.0); CALCIUM 8.5 MG/DL (8.5-10.1); CHLORIDE 110 MMOL/L (99-107); CREATININE 1.83 MG/DL (0.40-0.90); GLUCOSE 108 MG/DL (70-104); MAGNESIUM 2.4 MG/DL (1.5-2.4); PHOSPHORUS 4.5 MG/DL (2.3-4.5); POTASSIUM 4.1 MMOL/L (3.5-5.1); PREALBUMIN 14.2 MG/DL (19-36); SODIUM 146 MMOL/L (135-145); TOTAL CARBON DIOXIDE 23.2 MMOL/L (24-32); eGFR 27 ML/MIN
[2019-01-29 05:53] LABS: LARGE PLATELETS FEW; PLATELET ESTIMATE DECREASED
--- NOTE | 2019-01-29 06:30 | NUR ---
Problems reprioritized. Patient report given, questions answered & plan of care reviewed with Indy FLORES.
[2019-01-29] MEDS: aspirin 81mg tab.chew PO SCH (07:15)
[2019-01-29] MEDS: oxybutynin 5mg tablet PO SCH ×3 (07:15→20:49)
[2019-01-29] MEDS: lactobacillus rhamnosus 10,000 MMU CELLS/CAPSULE PO SCH ×3 (07:15→20:49)
[2019-01-29] MEDS: sodium bicarbonate inj. 75 ML in dextrose 5% water 500ml 500 ML IV SCH ×2 (07:15→15:54)
[2019-01-29] MEDS: amLODIPine 5mg tablet PO SCH (07:15)
[2019-01-29] MEDS: heparin, porcine 5000 units/ml vial SQ SCH ×2 (07:18→20:50)
[2019-01-29] MEDS: pantoprazole 40 MG vial IV SCH (07:22)
[2019-01-29] MEDS: K, MAG and/or Phos replacement - Verify level? MC SCH (08:00)
[2019-01-29] MEDS: budesonide 0.5mg/2ml UD nebule IH SCH ×2 (08:41→21:39)
[2019-01-29] MEDS: insulin regular, human vial - multi-dose SQ SCH ×3 (12:08→21:01)
--- NOTE | 2019-01-29 12:55 | NUR ---
Pt extubated at 1205. Tolerated well. Put on 6L NC. Per Dr. Kelly, okay to take pt off insulin gtt and transition to subq humulin. OGT came out at same time as ETT, BS at 1200 160. Covered pt with 2 units subq insulin for correctional dose. No insulin given for carbs since TF stopped when extubated. Will recheck BS at 1400. Per Dr. Kelly, pt placed on Bipap shortly after extubated since pt is morbidly obese w/ smoking hx and could easily retain CO2. Pt tolerating bipap well
[2019-01-29 14:40] LABS: ABG BASE EXCESS -1.7 mmol/L (-2.0-3.0); ABG HCO3 26.2 mmol/L (22.0-26.0); ABG OXYGEN SATURATION 90.9 % (95-98); ABG PCO2 (T) 55.3 mmHg (35.0-45.0); ABG PH (T) 7.289 (7.350-7.450); ABG PO2 (T) 62.3 mmHg (83-108); ALLEN'S TEST Positive; FCOHb 0.3 % (0.5-1.5); FMetHb 0.3 % (0.3-1.12); FO2Hb 90.4 % (94-100); MINUTE VOLUME 13 L/min; PATIENT TEMPERATURE 36.4; RESPIRATORY RATE 16 b/min; TOTAL HEMOGLOBIN 15.6 G/dl (12.0-16.0)
[2019-01-29] MEDS: vasopressin inj. 20 UNIT in normal saline 100ml IV soln 39 ML IV SCH (15:45)
[2019-01-29 17:16] LABS: ABG HCO3 24.9 mmol/L (22.0-26.0); ABG OXYGEN SATURATION 91.7 % (95-98); ABG PCO2 (T) 45.9 mmHg (35.0-45.0); ABG PH (T) 7.353 (7.350-7.450); ABG PO2 (T) 61.3 mmHg (83-108); ALLEN'S TEST Positive; FCOHb 0.6 % (0.5-1.5); FMetHb 0.3 % (0.3-1.12); FO2Hb 90.9 % (94-100); MINUTE VOLUME 18 L/min; RESPIRATORY RATE 20 b/min; TOTAL HEMOGLOBIN 15.7 G/dl (12.0-16.0)
--- NOTE | 2019-01-29 18:35 | NUR ---
Patient in room CICU 2012. I have received report from Indy FLORES, and had the opportunity to ask questions and assume patient care.
--- NOTE | 2019-01-29 20:00 | NUR ---
PT resting in bed with no s/s of distress noted at this time, VSS. Bipap in place and PT tolerating well, O2 sat >93%. Allison draining to gravity. Bed is locked and low. Call light is within reach. Will continue to monitor.
[2019-01-29] MEDS: atorvastatin 10mg tablet PO SCH ×2 (20:49→21:00)
[2019-01-29] MEDS: ROPINIRole 0.25mg tablet PO SCH ×2 (20:49→21:00)
[2019-01-29] MEDS: insulin glargine (Lantus) pen - multi-dose SQ SCH (21:00)
[2019-01-30] VITALS (24 sets, daily range): BP systolic 121–185; BP diastolic 65–110
--- NOTE | 2019-01-30 | NUR ---
PT sleeping with no s/s of distress noted at this time. VSS. Bed is locked and low. Will continue to monitor.
[2019-01-30] MEDS: sodium bicarbonate inj. 75 ML in dextrose 5% water 500ml 500 ML IV SCH (00:58)
[2019-01-30] MEDS: methylPREDNISolone sod succ 125mg/2ml vial IV SCH ×2 (00:58→08:06)
[2019-01-30] MEDS: piperacillin/tazo 3.375gm/50ml 50 ML IV SCH ×3 (00:58→15:12)
[2019-01-30] MEDS: NORepinephrine 8mg/ 250ml NS 250 ML IV SCH (02:15)
[2019-01-30] MEDS: ipratropium/albuterol 3ml nebule NEB SCH ×5 (03:04→23:29)
[2019-01-30] MEDS: insulin regular, human vial - multi-dose SQ SCH ×2 (03:19→20:28)
[2019-01-30] MEDS ORDERED: VANCOMYCIN LEVEL IV ONE (03:30)
[2019-01-30 03:43] LABS: BASOPHILS % (AUTO) 0.2 % (0-1); EOSINOPHILS % (AUTO) 0.1 % (0-6); HEMATOCRIT 44.7 % (35.0-45.0); HEMOGLOBIN 14.8 g/dl (12.0-16.0); LYMPHOCYTES # (AUTO) 0.5 X10'3 (1.1-4.8); LYMPHOCYTES % (AUTO) 3.8 % (21-51); MEAN CORPUSCULAR HEMOGLOBIN 28.7 PG (27.0-31.0); MEAN CORPUSCULAR HGB CONC 33.1 g/dL (33.0-36.5); MEAN CORPUSCULAR VOLUME 86.8 FL (78-98); MEAN PLATELET VOLUME 11.6 FL (7.4-10.4); MONOCYTES % (AUTO) 7.1 % (2-12); NEUTROPHILS # (AUTO) 12.6 X10'3 (1.8-7.7); NEUTROPHILS % (AUTO) 88.8 % (42-75); PLATELET COUNT 85 X10'3 (140-440); RED BLOOD COUNT 5.15 X10'6 (4.20-5.60); RED CELL DISTRIBUTION WIDTH 15.6 % (11.5-14.5); WHITE BLOOD COUNT 14.2 X10'3 (4.5-11.0)
[2019-01-30 03:58] LABS: ALANINE AMINOTRANSFERASE 31 U/L (12-78); ALBUMIN 2.2 G/DL (3.4-5.0); ALBUMIN/GLOBULIN RATIO 0.6 (1.1-1.5); ALKALINE PHOSPHATASE 59 IU/L (46-116); ANION GAP 5 (8-16); ASPARTATE AMINO TRANSFERASE 13 U/L (10-37); BILIRUBIN,TOTAL 0.4 MG/DL (0.1-1.0); BLOOD UREA NITROGEN 60 MG/DL (7-18); BUN/CREATININE RATIO 38.5 (6.6-38.0); CALCIUM 8.7 MG/DL (8.5-10.1); CHLORIDE 111 MMOL/L (99-107); CREATININE 1.56 MG/DL (0.40-0.90); GLUCOSE 173 MG/DL (70-104); MAGNESIUM 2.6 MG/DL (1.5-2.4); PHOSPHORUS 4.1 MG/DL (2.3-4.5); POTASSIUM 4.4 MMOL/L (3.5-5.1); SODIUM 146 MMOL/L (135-145); TOTAL CARBON DIOXIDE 30.4 MMOL/L (24-32); TOTAL PROTEIN 6.1 G/DL (6.4-8.2); eGFR 33 ML/MIN
[2019-01-30] MEDS: baclofen 10mg tablet PO PRN ×2 (05:11→14:22)
--- NOTE | 2019-01-30 05:20 | NUR ---
PT is working very hard to breath, Venti mask in place with FiO2 of 50%, O2 sat 88-93%. PT is refusing to put Bipap back on after much education from both nursing and RT. Will continue to monitor
--- NOTE | 2019-01-30 06:27 | NUR ---
Problems reprioritized. Patient report given, questions answered & plan of care reviewed with Ashley FLORES.
[2019-01-30] MEDS: K, MAG and/or Phos replacement - Verify level? MC SCH (08:00)
[2019-01-30] MEDS: pantoprazole 40 MG vial IV SCH (08:05)
[2019-01-30] MEDS: lactobacillus rhamnosus 10,000 MMU CELLS/CAPSULE PO SCH ×2 (08:05→20:19)
[2019-01-30] MEDS: amLODIPine 5mg tablet PO SCH (08:05)
[2019-01-30] MEDS: oxybutynin 5mg tablet PO SCH ×2 (08:06→20:19)
[2019-01-30] MEDS: aspirin 81mg tab.chew PO SCH (08:06)
[2019-01-30] MEDS: heparin, porcine 5000 units/ml vial SQ SCH (08:07)
[2019-01-30] MEDS: budesonide 0.5mg/2ml UD nebule IH SCH ×2 (08:30→19:43)
[2019-01-30] MEDS: insulin Lispro (HumaLOG) vial - multi-dose SQ PRN ×2 (09:12→13:27)
[2019-01-30] MEDS: acetaminophen 325mg tablet PO PRN ×2 (09:14→17:40)
[2019-01-30] MEDS ORDERED: furosemide 40mg/4ml inj IV ONE (09:15)
[2019-01-30] MEDS ORDERED: furosemide 40mg/4ml inj ONE (09:35)
[2019-01-30] MEDS: insulin regular, human 100 UNIT in normal saline 100ml IV soln 99 ML IV SCH ×2 (09:35)
--- NOTE | 2019-01-30 12:15 | NUR ---
Reassessment: pt extubated yesterday, per MD today pt refusing bipap, per bedside RN patient is NPO as it is unsafe for her to eat right now, even sips of water can lead to desatting. No more tube feedings, OG tube out. Will continue to follow and monitor diet advancement and ability to eat safely. Recommendations: 1) Advance to heart healthy CHO controlled diet as medically indicated when safe to eat PO 2) Monitor for texture and need for ONS if unable to meet needs when diet is advanced, with patient short of breath may benefit from chopped or ground texture 3) wt per rx Addendum: 01/30/19 at [address] Amended: Links added.
[2019-01-30] MEDS: hydrALAZINE 25 MG tablet PO SCH (15:11)
[2019-01-30] MEDS ORDERED: hyDRALAzine 10mg tablet PO SCH (16:00)
[2019-01-30 16:46] LABS: ABG BASE EXCESS 4.2 mmol/L (-2.0-3.0); ABG HCO3 31.1 mmol/L (22.0-26.0); ABG OXYGEN SATURATION 92.9 % (95-98); ABG PO2 (T) 67.6 mmHg (83-108); ALLEN'S TEST Positive; FCOHb 0.7 % (0.5-1.5); FLOW 14 L/min; FMetHb 0.2 % (0.3-1.12); FO2Hb 92.1 % (94-100)
--- NOTE | 2019-01-30 18:00 | NUR ---
Pt. refusing bipap throughout entire shift. Pt. educated by provider (Dr. Manning), RT and this RN, yet pt. continued to refuse stating she did not like the pressure of the air from the ventilator. Pt. hypertensive throughout shift after amlodipine given this morning. Lasix given IV per Dr. Manning order, bicarb gtt stopped, and hydralazine TID started. Pt.'s daughter updated at bedside. Continue with plan of care.
--- NOTE | 2019-01-30 18:20 | NUR ---
Patient in room CICU 2011. I have received report from Ashley FLORES, and had the opportunity to ask questions and assume patient care.
[2019-01-30] MEDS: ROPINIRole 0.25mg tablet PO SCH (20:20)
[2019-01-30] MEDS: atorvastatin 10mg tablet PO SCH (20:20)
[2019-01-30] MEDS: insulin glargine (Lantus) pen - multi-dose SQ SCH (20:20)
[2019-01-30] MEDS ORDERED: traMADol 50MG tablet PO ONE (20:50)
[2019-01-31] VITALS (24 sets, daily range): BP systolic 114–163; BP diastolic 46–96
[2019-01-31] MEDS: baclofen 10mg tablet PO PRN (00:09)
[2019-01-31] MEDS: hydrALAZINE 25 MG tablet PO SCH ×4 (00:09→23:31)
[2019-01-31] MEDS: piperacillin/tazo 3.375gm/50ml 50 ML IV SCH ×4 (00:09→23:31)
[2019-01-31] MEDS: ipratropium/albuterol 3ml nebule NEB SCH ×6 (03:22→23:21)
[2019-01-31 03:25] LABS: BASOPHILS # (AUTO) 0.1 X10'3 (0-0.2); BASOPHILS % (AUTO) 0.6 % (0-1); EOSINOPHILS % (AUTO) 0.1 % (0-6); HEMATOCRIT 45.2 % (35.0-45.0); HEMOGLOBIN 14.7 g/dl (12.0-16.0); LYMPHOCYTES # (AUTO) 0.6 X10'3 (1.1-4.8); LYMPHOCYTES % (AUTO) 4.5 % (21-51); MEAN CORPUSCULAR HEMOGLOBIN 28.3 PG (27.0-31.0); MEAN CORPUSCULAR HGB CONC 32.5 g/dL (33.0-36.5); MEAN CORPUSCULAR VOLUME 87.1 FL (78-98); MEAN PLATELET VOLUME 11.6 FL (7.4-10.4); MONOCYTES # (AUTO) 1.5 X10'3 (0-0.9); MONOCYTES % (AUTO) 10.5 % (2-12); NEUTROPHILS % (AUTO) 84.3 % (42-75); PLATELET COUNT 96 X10'3 (140-440); RED BLOOD COUNT 5.19 X10'6 (4.20-5.60); RED CELL DISTRIBUTION WIDTH 15.3 % (11.5-14.5); WHITE BLOOD COUNT 14.2 X10'3 (4.5-11.0)
--- NOTE | 2019-01-31 03:26 | NUR ---
PATIENT SLEEPING WITHOUT SOB, METANEB TREZTMENT HELD TO ALLOW REST.
[2019-01-31 04:00] LABS: ALANINE AMINOTRANSFERASE 28 U/L (12-78); ALBUMIN 2.3 G/DL (3.4-5.0); ALBUMIN/GLOBULIN RATIO 0.6 (1.1-1.5); ALKALINE PHOSPHATASE 56 IU/L (46-116); ANION GAP 3 (8-16); ASPARTATE AMINO TRANSFERASE 14 U/L (10-37); BILIRUBIN,TOTAL 0.3 MG/DL (0.1-1.0); BLOOD UREA NITROGEN 50 MG/DL (7-18); BUN/CREATININE RATIO 39.4 (6.6-38.0); CALCIUM 8.8 MG/DL (8.5-10.1); CHLORIDE 111 MMOL/L (99-107); CREATININE 1.27 MG/DL (0.40-0.90); GLUCOSE 126 MG/DL (70-104); MAGNESIUM 2.4 MG/DL (1.5-2.4); PHOSPHORUS 3.4 MG/DL (2.3-4.5); SODIUM 148 MMOL/L (135-145); TOTAL CARBON DIOXIDE 34.1 MMOL/L (24-32); TOTAL PROTEIN 6.3 G/DL (6.4-8.2); eGFR 41 ML/MIN
[2019-01-31 04:10] LABS: POTASSIUM 4.2 MMOL/L (3.5-5.1)
[2019-01-31] MEDS: acetaminophen 325mg tablet PO PRN (05:18)
--- NOTE | 2019-01-31 06:30 | NUR ---
Patient in room CICU 2012. I have received report from telma ang and had the opportunity to ask questions and assume patient care.
--- NOTE | 2019-01-31 06:49 | NUR ---
Problems reprioritized. Patient report given, questions answered & plan of care reviewed with Shalonda FLORES.
[2019-01-31] MEDS: K, MAG and/or Phos replacement - Verify level? MC SCH (07:12)
[2019-01-31] MEDS: budesonide 0.5mg/2ml UD nebule IH SCH ×2 (08:02→19:13)
[2019-01-31] MEDS: pantoprazole 40 MG vial IV SCH (08:11)
[2019-01-31] MEDS: amLODIPine 5mg tablet PO SCH (08:12)
[2019-01-31] MEDS: oxybutynin 5mg tablet PO SCH ×2 (08:12→20:22)
[2019-01-31] MEDS: aspirin 81mg tab.chew PO SCH (08:12)
[2019-01-31] MEDS: lactobacillus rhamnosus 10,000 MMU CELLS/CAPSULE PO SCH ×2 (08:13→20:22)
[2019-01-31] MEDS: traMADol 50MG tablet PO PRN (12:33)
[2019-01-31] MEDS ORDERED: furosemide 40mg/4ml inj IV ONE (14:55)
[2019-01-31] MEDS: guaiFENesin 200 MG/10 ML oral syrup UD cup PO PRN (17:15)
--- NOTE | 2019-01-31 18:39 | NUR ---
Problems reprioritized. Patient report given questions answered & plan of care reviewed with ashia young
--- NOTE | 2019-01-31 18:43 | NUR ---
Patient in room CICU 2011. I have received report from Minerva FLORES and had the opportunity to ask questions and assume patient care. Patient resting comfortably in bed, in no apparent distress. Patient saturating at 91% on 8L High flow NC. HR in mid 90s in sinus rhythm. Will continue to monitor patient closely.
--- NOTE | 2019-01-31 18:47 | NUR ---
As RN who is orienting SANDRA Palma to ICU, I agree with Minerva's charting for day shift 01/31/19.
[2019-01-31] MEDS: atorvastatin 10mg tablet PO SCH (20:22)
[2019-01-31] MEDS: ROPINIRole 0.25mg tablet PO SCH (20:22)
[2019-01-31] MEDS: insulin glargine (Lantus) pen - multi-dose SQ SCH (21:00)
[2019-02-01] VITALS (24 sets, daily range): BP systolic 115–152; BP diastolic 58–92
[2019-02-01] MEDS: ipratropium/albuterol 3ml nebule NEB SCH ×6 (03:02→23:17)
[2019-02-01] MEDS: guaiFENesin 200 MG/10 ML oral syrup UD cup PO PRN ×3 (03:20→22:12)
[2019-02-01] MEDS: acetaminophen 325mg tablet PO PRN ×3 (03:29→20:53)
[2019-02-01 04:40] LABS: BASOPHILS % (AUTO) 0.2 % (0-1); EOSINOPHILS # (AUTO) 0.1 X10'3 (0-0.9); EOSINOPHILS % (AUTO) 0.9 % (0-6); HEMATOCRIT 46.6 % (35.0-45.0); HEMOGLOBIN 15.4 g/dl (12.0-16.0); LYMPHOCYTES # (AUTO) 1.1 X10'3 (1.1-4.8); LYMPHOCYTES % (AUTO) 8.4 % (21-51); MEAN CORPUSCULAR HEMOGLOBIN 28.6 PG (27.0-31.0); MEAN CORPUSCULAR HGB CONC 33.1 g/dL (33.0-36.5); MEAN CORPUSCULAR VOLUME 86.3 FL (78-98); MONOCYTES # (AUTO) 1.2 X10'3 (0-0.9); MONOCYTES % (AUTO) 8.7 % (2-12); NEUTROPHILS # (AUTO) 10.9 X10'3 (1.8-7.7); NEUTROPHILS % (AUTO) 81.8 % (42-75); PLATELET COUNT 102 X10'3 (140-440); RED BLOOD COUNT 5.41 X10'6 (4.20-5.60); RED CELL DISTRIBUTION WIDTH 15.5 % (11.5-14.5); WHITE BLOOD COUNT 13.4 X10'3 (4.5-11.0)
[2019-02-01 04:46] LABS: ALANINE AMINOTRANSFERASE 25 U/L (12-78); ALBUMIN 2.2 G/DL (3.4-5.0); ALBUMIN/GLOBULIN RATIO 0.6 (1.1-1.5); ALKALINE PHOSPHATASE 61 IU/L (46-116); ANION GAP 3 (8-16); ASPARTATE AMINO TRANSFERASE 11 U/L (10-37); BILIRUBIN,TOTAL 0.7 MG/DL (0.1-1.0); BLOOD UREA NITROGEN 36 MG/DL (7-18); BUN/CREATININE RATIO 32.4 (6.6-38.0); CALCIUM 8.6 MG/DL (8.5-10.1); CHLORIDE 107 MMOL/L (99-107); CREATININE 1.11 MG/DL (0.40-0.90); GLUCOSE 100 MG/DL (70-104); MAGNESIUM 1.9 MG/DL (1.5-2.4); PHOSPHORUS 2.5 MG/DL (2.3-4.5); POTASSIUM 3.6 MMOL/L (3.5-5.1); SODIUM 147 MMOL/L (135-145); TOTAL CARBON DIOXIDE 37.3 MMOL/L (24-32); TOTAL PROTEIN 5.9 G/DL (6.4-8.2); eGFR 48 ML/MIN
--- NOTE | 2019-02-01 06:00 | NUR ---
Patient in room CICU 2011. I have received report from Izaiah FLORES and had the opportunity to ask questions and assume patient care.
--- NOTE | 2019-02-01 06:39 | NUR ---
Problems reprioritized. Patient report given, questions answered & plan of care reviewed with Ramona FLORES.
[2019-02-01] MEDS: K, MAG and/or Phos replacement - Verify level? MC SCH (08:00)
[2019-02-01] MEDS: piperacillin/tazo 3.375gm/50ml 50 ML IV SCH ×3 (08:12→23:21)
[2019-02-01] MEDS: amLODIPine 5mg tablet PO SCH (08:13)
[2019-02-01] MEDS: lactobacillus rhamnosus 10,000 MMU CELLS/CAPSULE PO SCH ×2 (08:13→20:53)
[2019-02-01] MEDS: hydrALAZINE 25 MG tablet PO SCH ×3 (08:13→23:22)
[2019-02-01] MEDS: aspirin 81mg tab.chew PO SCH (08:13)
[2019-02-01] MEDS: oxybutynin 5mg tablet PO SCH ×2 (08:13→20:54)
[2019-02-01] MEDS: budesonide 0.5mg/2ml UD nebule IH SCH ×2 (08:22→19:15)
[2019-02-01] MEDS: pantoprazole 40 MG vial IV SCH (10:52)
--- NOTE | 2019-02-01 11:35 | NUR ---
rt aborted resp tx early due to emergent intubation in icu
--- NOTE | 2019-02-01 11:36 | NUR ---
rt aborted resp tx due to emergent intubation in icu Addendum: 02/01/19 at 1136 by Janine Quiroz RT Amended: Links added.
--- NOTE | 2019-02-01 18:22 | NUR ---
Problems reprioritized. Patient report given, questions answered & plan of care reviewed with Rosalia RN.
--- NOTE | 2019-02-01 18:32 | NUR ---
Patient in room CICU 2011. I have received report from TANYA FLORES and had the opportunity to ask questions and assume patient care.
[2019-02-01] MEDS: atorvastatin 10mg tablet PO SCH (20:51)
[2019-02-01] MEDS: ROPINIRole 0.25mg tablet PO SCH (20:55)
[2019-02-01] MEDS: insulin glargine (Lantus) pen - multi-dose SQ SCH (20:55)
[2019-02-01] MEDS: traMADol 50MG tablet PO PRN (23:26)
[2019-02-02] VITALS (20 sets, daily range): BP systolic 127–160; BP diastolic 66–89
[2019-02-02] MEDS: ipratropium/albuterol 3ml nebule NEB SCH ×5 (03:00→20:23)
[2019-02-02 03:27] LABS: BASOPHILS % (AUTO) 0.3 % (0-1); EOSINOPHILS # (AUTO) 0.3 X10'3 (0-0.9); EOSINOPHILS % (AUTO) 2.9 % (0-6); HEMATOCRIT 44.7 % (35.0-45.0); HEMOGLOBIN 14.6 g/dl (12.0-16.0); MEAN CORPUSCULAR HEMOGLOBIN 28.3 PG (27.0-31.0); MEAN CORPUSCULAR HGB CONC 32.7 g/dL (33.0-36.5); MEAN CORPUSCULAR VOLUME 86.5 FL (78-98); MEAN PLATELET VOLUME 10.8 FL (7.4-10.4); MONOCYTES # (AUTO) 0.7 X10'3 (0-0.9); MONOCYTES % (AUTO) 6.6 % (2-12); NEUTROPHILS # (AUTO) 8.6 X10'3 (1.8-7.7); NEUTROPHILS % (AUTO) 81.2 % (42-75); PLATELET COUNT 111 X10'3 (140-440); RED BLOOD COUNT 5.17 X10'6 (4.20-5.60); RED CELL DISTRIBUTION WIDTH 14.8 % (11.5-14.5); WHITE BLOOD COUNT 10.6 X10'3 (4.5-11.0)
[2019-02-02 03:32] LABS: ALANINE AMINOTRANSFERASE 21 U/L (12-78); ALBUMIN/GLOBULIN RATIO 0.6 (1.1-1.5); ALKALINE PHOSPHATASE 57 IU/L (46-116); ANION GAP 2 (8-16); ASPARTATE AMINO TRANSFERASE 9 U/L (10-37); BILIRUBIN,TOTAL 0.6 MG/DL (0.1-1.0); BLOOD UREA NITROGEN 25 MG/DL (7-18); BUN/CREATININE RATIO 26.3 (6.6-38.0); CALCIUM 8.1 MG/DL (8.5-10.1); CHLORIDE 105 MMOL/L (99-107); CREATININE 0.95 MG/DL (0.40-0.90); GLUCOSE 110 MG/DL (70-104); MAGNESIUM 1.7 MG/DL (1.5-2.4); PHOSPHORUS 2.8 MG/DL (2.3-4.5); POTASSIUM 3.4 MMOL/L (3.5-5.1); PREALBUMIN 18.1 MG/DL (19-36); SODIUM 144 MMOL/L (135-145); TOTAL CARBON DIOXIDE 36.7 MMOL/L (24-32); TOTAL PROTEIN 5.5 G/DL (6.4-8.2); eGFR 58 ML/MIN
--- NOTE | 2019-02-02 06:05 | NUR ---
pt has been tolerating full liquids and Dr Kelly wrote an order to advance as tolerated. pt said she would like to order cereal this morning. changed diet to carb controlled due to history of DM, checking glucose ACHS however has not met hyperglycemic protocol yet
--- NOTE | 2019-02-02 06:27 | NUR ---
Problems reprioritized. Patient report given, questions answered & plan of care reviewed with TWAN FLORES.
[2019-02-02] MEDS: lactobacillus rhamnosus 10,000 MMU CELLS/CAPSULE PO SCH ×2 (07:32→21:02)
[2019-02-02] MEDS: aspirin 81mg tab.chew PO SCH (07:32)
[2019-02-02] MEDS: oxybutynin 5mg tablet PO SCH ×2 (07:33→21:03)
[2019-02-02] MEDS: amLODIPine 5mg tablet PO SCH (07:33)
[2019-02-02] MEDS: pantoprazole 40 MG vial IV SCH (07:33)
[2019-02-02] MEDS: hydrALAZINE 25 MG tablet PO SCH ×3 (07:33→23:24)
[2019-02-02] MEDS: piperacillin/tazo 3.375gm/50ml 50 ML IV SCH (07:33)
[2019-02-02] MEDS: budesonide 0.5mg/2ml UD nebule IH SCH ×2 (07:46→20:23)
[2019-02-02] MEDS: K, MAG and/or Phos replacement - Verify level? MC SCH (08:00)
[2019-02-02] MEDS: guaiFENesin 200 MG/10 ML oral syrup UD cup PO PRN (11:54)
[2019-02-02] MEDS: potassium Cl 20 mEq SR tablet PO PRN ×2 (11:54→21:02)
--- NOTE | 2019-02-02 18:05 | NUR ---
Right IJ central line dc'd per orders; biopatch with brown/green drainage. Dr Kelly shown on rounding and ordered cath tip culture- sent.
[2019-02-02] MEDS: piperacillin/tazo 4.5gm/100ml 100 ML IV SCH ×2 (18:10→23:24)
[2019-02-02] MEDS ORDERED: NORepinephrine 8mg/ 250ml NS 250 ML IV ONE (19:33)
--- NOTE | 2019-02-02 19:50 | NUR ---
I have received report from BJ RN and had the opportunity to ask questions and assume patient care.
--- NOTE | 2019-02-02 20:29 | NUR ---
report called to Ne FLORES in Ortho. pt and belongings transferred to 4021 placed on tele number 2 and 6 liters hiflow n/c. no difficulties with transfer.
[2019-02-02] MEDS: insulin glargine (Lantus) pen - multi-dose SQ SCH (21:00)
[2019-02-02] MEDS: ROPINIRole 0.25mg tablet PO SCH (21:02)
[2019-02-02] MEDS: atorvastatin 10mg tablet PO SCH (21:02)
[2019-02-02] MEDS: acetaminophen 325mg tablet PO PRN (21:10)
[2019-02-03] MEDS: ipratropium/albuterol 3ml nebule NEB SCH ×6 (00:31→19:13)
--- NOTE | 2019-02-03 01:00 | NUR ---
Pt had morning K of 3.4. Pt has received 2 K-Dur doses and refuses her third dose. Pt educated on low levels of potassium. Will continue to monitor.
[2019-02-03 03:44] LABS: ALANINE AMINOTRANSFERASE 19 U/L (12-78); ALBUMIN 2.1 G/DL (3.4-5.0); ALBUMIN/GLOBULIN RATIO 0.6 (1.1-1.5); ALKALINE PHOSPHATASE 60 IU/L (46-116); ANION GAP 4 (8-16); ASPARTATE AMINO TRANSFERASE 10 U/L (10-37); BILIRUBIN,TOTAL 0.7 MG/DL (0.1-1.0); BLOOD UREA NITROGEN 22 MG/DL (7-18); BUN/CREATININE RATIO 20.4 (6.6-38.0); CALCIUM 8.1 MG/DL (8.5-10.1); CHLORIDE 105 MMOL/L (99-107); CREATININE 1.08 MG/DL (0.40-0.90); GLUCOSE 109 MG/DL (70-104); MAGNESIUM 1.7 MG/DL (1.5-2.4); PHOSPHORUS 2.6 MG/DL (2.3-4.5); POTASSIUM 3.7 MMOL/L (3.5-5.1); SODIUM 142 MMOL/L (135-145); TOTAL CARBON DIOXIDE 33.1 MMOL/L (24-32); TOTAL PROTEIN 5.5 G/DL (6.4-8.2); eGFR 50 ML/MIN
[2019-02-03 03:52] LABS: BASOPHILS % (AUTO) 0.2 % (0-1); EOSINOPHILS # (AUTO) 0.4 X10'3 (0-0.9); EOSINOPHILS % (AUTO) 3.5 % (0-6); HEMATOCRIT 45.5 % (35.0-45.0); HEMOGLOBIN 14.7 g/dl (12.0-16.0); LYMPHOCYTES # (AUTO) 1.1 X10'3 (1.1-4.8); LYMPHOCYTES % (AUTO) 10.5 % (21-51); MEAN CORPUSCULAR HGB CONC 32.4 g/dL (33.0-36.5); MEAN CORPUSCULAR VOLUME 86.5 FL (78-98); MEAN PLATELET VOLUME 10.6 FL (7.4-10.4); MONOCYTES # (AUTO) 0.6 X10'3 (0-0.9); MONOCYTES % (AUTO) 5.7 % (2-12); NEUTROPHILS # (AUTO) 8.3 X10'3 (1.8-7.7); NEUTROPHILS % (AUTO) 80.1 % (42-75); PLATELET COUNT 128 X10'3 (140-440); RED BLOOD COUNT 5.26 X10'6 (4.20-5.60); RED CELL DISTRIBUTION WIDTH 15.2 % (11.5-14.5); WHITE BLOOD COUNT 10.4 X10'3 (4.5-11.0)
[2019-02-03 06:00] VITALS: BP 130/64
[2019-02-03 06:27] LABS: LARGE PLATELETS FEW; PLATELET ESTIMATE DECREASED
--- NOTE | 2019-02-03 06:41 | NUR ---
Problems reprioritized. Patient report given, questions answered & plan of care reviewed with Magnolia FLORES and Roxana DALTON.
--- NOTE | 2019-02-03 06:51 | NUR ---
Report received from SANDRA Oilvia
[2019-02-03] MEDS: hydrALAZINE 25 MG tablet PO SCH ×3 (07:58→23:56)
[2019-02-03] MEDS: aspirin 81mg tab.chew PO SCH (08:00)
[2019-02-03] MEDS: amLODIPine 5mg tablet PO SCH (08:00)
[2019-02-03] MEDS: lactobacillus rhamnosus 10,000 MMU CELLS/CAPSULE PO SCH ×2 (08:00→19:29)
[2019-02-03] MEDS: guaiFENesin 200 MG/10 ML oral syrup UD cup PO PRN ×2 (08:00→14:27)
[2019-02-03] MEDS: pantoprazole 40 MG vial IV SCH (08:00)
[2019-02-03] MEDS: oxybutynin 5mg tablet PO SCH ×2 (08:00→19:29)
[2019-02-03] MEDS: piperacillin/tazo 4.5gm/100ml 100 ML IV SCH ×3 (08:01→23:56)
[2019-02-03] MEDS: budesonide 0.5mg/2ml UD nebule IH SCH ×2 (09:09→19:13)
[2019-02-03] MEDS: K, MAG and/or Phos replacement - Verify level? MC SCH (10:44)
[2019-02-03 11:37] VITALS: BP 126/76
--- NOTE | 2019-02-03 13:52 | NUR ---
reassessment: Pt PO much improved s/p extubation 75% avg carb controlled meals. LBM 02/01. SHANNA improving per MD note. Will continue to monitor. Recommendations: 1) Advance to heart healthy CHO controlled diet per MD 2) monitor for additional texture modification or ONS needs 3) wt per rx Addendum: 02/03/19 at [address] Amended: Links added.
[2019-02-03 18:00] VITALS: BP 142/83
--- NOTE | 2019-02-03 18:01 | NUR ---
Patient in room ORTHO 4021. I have received report from Magnolia FLORES and had the opportunity to ask questions and assume patient care.
--- NOTE | 2019-02-03 19:22 | NUR ---
Patient refuses to take metaneb, meds given via SVN per patient request.
[2019-02-03] MEDS: insulin glargine (Lantus) pen - multi-dose SQ SCH (21:00)
[2019-02-03] MEDS: ROPINIRole 0.25mg tablet PO SCH (21:21)
[2019-02-03] MEDS: atorvastatin 10mg tablet PO SCH (21:24)
[2019-02-03] MEDS ORDERED: ipratropium/albuterol 3ml nebule NEB PRN (21:40)
[2019-02-03 22:00] VITALS: BP 126/69
[2019-02-04] VITALS: BP 122/75
[2019-02-04 03:45] LABS: BASOPHILS # (AUTO) 0.1 X10'3 (0-0.2); BASOPHILS % (AUTO) 0.7 % (0-1); EOSINOPHILS # (AUTO) 0.4 X10'3 (0-0.9); EOSINOPHILS % (AUTO) 3.3 % (0-6); HEMATOCRIT 43.5 % (35.0-45.0); HEMOGLOBIN 14.4 g/dl (12.0-16.0); LYMPHOCYTES % (AUTO) 8.6 % (21-51); MEAN CORPUSCULAR HEMOGLOBIN 28.6 PG (27.0-31.0); MEAN CORPUSCULAR VOLUME 86.7 FL (78-98); MEAN PLATELET VOLUME 10.8 FL (7.4-10.4); MONOCYTES % (AUTO) 8.4 % (2-12); NEUTROPHILS # (AUTO) 9.6 X10'3 (1.8-7.7); PLATELET COUNT 143 X10'3 (140-440); RED BLOOD COUNT 5.02 X10'6 (4.20-5.60); RED CELL DISTRIBUTION WIDTH 15.3 % (11.5-14.5); WHITE BLOOD COUNT 12.2 X10'3 (4.5-11.0)
[2019-02-04 03:56] LABS: ALANINE AMINOTRANSFERASE 21 U/L (12-78); ALBUMIN 2.1 G/DL (3.4-5.0); ALBUMIN/GLOBULIN RATIO 0.6 (1.1-1.5); ALKALINE PHOSPHATASE 69 IU/L (46-116); ANION GAP 3 (8-16); ASPARTATE AMINO TRANSFERASE 12 U/L (10-37); BILIRUBIN,TOTAL 0.5 MG/DL (0.1-1.0); BLOOD UREA NITROGEN 23 MG/DL (7-18); BUN/CREATININE RATIO 20.7 (6.6-38.0); CALCIUM 8.5 MG/DL (8.5-10.1); CHLORIDE 106 MMOL/L (99-107); CREATININE 1.11 MG/DL (0.40-0.90); GLUCOSE 118 MG/DL (70-104); MAGNESIUM 1.9 MG/DL (1.5-2.4); PHOSPHORUS 3.1 MG/DL (2.3-4.5); POTASSIUM 3.9 MMOL/L (3.5-5.1); SODIUM 142 MMOL/L (135-145); TOTAL CARBON DIOXIDE 32.8 MMOL/L (24-32); TOTAL PROTEIN 5.9 G/DL (6.4-8.2); eGFR 48 ML/MIN
[2019-02-04 06:00] VITALS: BP 121/71
--- NOTE | 2019-02-04 06:36 | NUR ---
Problems reprioritized. Patient report given, questions answered & plan of care reviewed with Dorota FLORES.
--- NOTE | 2019-02-04 06:55 | NUR ---
Patient in room ORTHO 4021. I have received report from Ne FLORES and had the opportunity to ask questions and assume patient care.
[2019-02-04] MEDS: ipratropium/albuterol 3ml nebule NEB SCH ×3 (07:00→16:33)
[2019-02-04] MEDS: K, MAG and/or Phos replacement - Verify level? MC SCH (07:28)
[2019-02-04] MEDS: piperacillin/tazo 4.5gm/100ml 100 ML IV SCH ×2 (07:36→16:00)
[2019-02-04] MEDS: pantoprazole 40 MG vial IV SCH (07:37)
[2019-02-04] MEDS: acetaminophen 325mg tablet PO PRN (07:37)
[2019-02-04] MEDS: lactobacillus rhamnosus 10,000 MMU CELLS/CAPSULE PO SCH (07:38)
[2019-02-04] MEDS: hydrALAZINE 25 MG tablet PO SCH ×2 (07:38→16:31)
[2019-02-04] MEDS: amLODIPine 5mg tablet PO SCH (07:38)
[2019-02-04] MEDS: aspirin 81mg tab.chew PO SCH (07:38)
[2019-02-04] MEDS: oxybutynin 5mg tablet PO SCH (07:39)
[2019-02-04] MEDS: budesonide 0.5mg/2ml UD nebule IH SCH (08:00)
[2019-02-04 10:00] VITALS: BP 112/58
--- NOTE | 2019-02-04 16:21 | NUR ---
CALLED AND GAVE REPORT TO JAZ FLORES FROM [facility]
[2019-02-04] MEDS: traMADol 50MG tablet PO PRN (16:31)
--- NOTE | 2019-02-04 17:09 | NUR ---
I AGREE WITH MY PRECEPTEE BRIA FLORES'S CHARTING.
--- NOTE | 2019-02-04 17:15 | NUR ---
Pt trans with pritesh johnson with all possessions with patient.
== END 2019-02-04 17:10 | DRG 853 ==
LOC: ER 20:52 → CICU 2S 01-26 03:12 → CMPBEDREQ 01-26 19:57 → ORTHO 4S 02-02 20:15
PROVIDERS: ADMIT Internal Medicine Critical Care Medicine; ATTEND Internal Medicine Critical Care Medicine
PROC: 02HV33Z Insertion of Infusion Device into Superior Vena Cava, Percutaneous Approach (ICD-10-PCS; 2019-01-25)
PROC: B548ZZA Ultrasonography of Superior Vena Cava, Guidance (ICD-10-PCS; 2019-01-25)
PROC: 5A1945Z Respiratory Ventilation, 24-96 Consecutive Hours (ICD-10-PCS; 2019-01-26)
PROC: 0BH17EZ Insertion of Endotracheal Airway into Trachea, Via Natural or Artificial Opening (ICD-10-PCS; 2019-01-26)
PROC: BT1D1ZZ Fluoroscopy of Right Kidney, Ureter and Bladder using Low Osmolar Contrast (ICD-10-PCS; 2019-01-26)
PROC: 0T768DZ Dilation of Right Ureter with Intraluminal Device, Via Natural or Artificial Opening Endoscopic (ICD-10-PCS; principal; 2019-01-26 17:03)
PROC: 5A09357 Assistance with Respiratory Ventilation, Less than 24 Consecutive Hours, Continuous Positive Airway Pressure (ICD-10-PCS; 2019-01-29)
DX: A41.51 Sepsis due to Escherichia coli [E. coli] (principal); J96.00 Acute respiratory failure, unspecified whether with hypoxia or hypercapnia; R65.21 Severe sepsis with septic shock; Z68.43 Body mass index [BMI] 50.0-59.9, adult; N17.9 Acute kidney failure, unspecified; E66.2 Morbid (severe) obesity with alveolar hypoventilation; N13.6 Pyonephrosis; E11.9 Type 2 diabetes mellitus without complications; E78.00 Pure hypercholesterolemia, unspecified; E78.5 Hyperlipidemia, unspecified; F17.210 Nicotine dependence, cigarettes, uncomplicated; Z16.12 Extended spectrum beta lactamase (ESBL) resistance; B96.20 Unspecified Escherichia coli [E. coli] as the cause of diseases classified elsewhere; G25.81 Restless legs syndrome; I10 Essential (primary) hypertension; J44.9 Chronic obstructive pulmonary disease, unspecified; N32.81 Overactive bladder; Z16.24 Resistance to multiple antibiotics; Z85.43 Personal history of malignant neoplasm of ovary; Z90.710 Acquired absence of both cervix and uterus; Z79.82 Long term (current) use of aspirin; Z79.899 Other long term (current) drug therapy; Z79.84 Long term (current) use of oral hypoglycemic drugs
CPT/HCPCS: 36415; 36556; 36600; 71045; 74018; 74176; 76000; 76937; 80048; 80053; 81001; 82803; 82810; 82948; 83036; 83605; 83735; 84100; 84134; 84145; 84443; 84484; 85018; 85025; 85610; 85730; 87040; 87070; 87077; 87081; 87088; 87186; 92508; 92616; 93005; 94002; 94003; 94640; 94660; 94667; 94668; 94760; 96365; 96368; 96375; 97110; 97116; 97162; 97530; 97535; 99285; A4402; A4618; A6258; C1758; C1769; C2617; C9113; G0378; J0131; J0330; J0696; J1250; J1644; J1815; J1940; J1956; J2250; J2270; J2405; J2543; J2930; J3010; J3370; J3480; J3490; J7040; J7060; J7120; J7626; Q9967

== ENCOUNTER 2020-12-03 17:27 | Emergency (ER) | payer MEDICARE, BC ==
[~2020-12-03] VITALS: Ht 162.6 cm; Wt 154.6 kg
[~2020-12-03 17:27] MED LIST: AMLO10TA PO; ASPI-1265 PO; BACL10TA PO; FLUT1BLS3 INH; FLUT1DIS7 INH; FURO20TA4 PO; IBUP-1986 PO; IPRA4AER IH; LISI10TA27 PO; MAGN27TA2 PO; METF500T PO; OXYB5TAB16 PO; POT CHLORIDE PO; ROPI0.252 PO; SIMV10TA2 PO; TIOT18CA3 INH
[2020-12-03 17:30] VITALS: BP 119/54
[2020-12-03] MEDS ORDERED: HYDROcodone/acetaminophen 5mg/325mg tablet PO ONE (17:55)
[2020-12-03] MEDS ORDERED: ondansetron 4mg rapidly disintigrating tab PO ONE (17:55)
[2020-12-03 18:32] LABS: BASOPHILS % (AUTO) 0.6 % (0-1); EOSINOPHILS # (AUTO) 0.1 X10'3 (0-0.9); EOSINOPHILS % (AUTO) 1.1 % (0-6); HEMATOCRIT 44.1 % (35.0-45.0); HEMOGLOBIN 14.3 g/dl (12.0-16.0); LYMPHOCYTES # (AUTO) 1.1 X10'3 (1.1-4.8); LYMPHOCYTES % (AUTO) 13.9 % (21-51); MEAN CORPUSCULAR HEMOGLOBIN 28.6 PG (27.0-31.0); MEAN CORPUSCULAR HGB CONC 32.4 g/dL (33.0-36.5); MEAN CORPUSCULAR VOLUME 88.3 FL (78-98); MEAN PLATELET VOLUME 10.5 FL (7.4-10.4); MONOCYTES # (AUTO) 0.5 X10'3 (0-0.9); NEUTROPHILS # (AUTO) 5.9 X10'3 (1.8-7.7); NEUTROPHILS % (AUTO) 77.4 % (42-75); PLATELET COUNT 170 X10'3 (140-440); RED BLOOD COUNT 4.99 X10'6 (4.20-5.60); RED CELL DISTRIBUTION WIDTH 15.1 % (11.5-14.5); WHITE BLOOD COUNT 7.7 X10'3 (4.5-11.0)
[2020-12-03 18:36] LABS: ALANINE AMINOTRANSFERASE 27 U/L (12-78); ALBUMIN 3.3 G/DL (3.4-5.0); ALBUMIN/GLOBULIN RATIO 0.8 (1.1-1.5); ALKALINE PHOSPHATASE 79 IU/L (46-116); ANION GAP 7 (8-16); ASPARTATE AMINO TRANSFERASE 12 U/L (10-37); BILIRUBIN,TOTAL 0.4 MG/DL (0.1-1.0); BLOOD UREA NITROGEN 15 MG/DL (7-18); BUN/CREATININE RATIO 19.5 (6.6-38.0); CALCIUM 9.4 MG/DL (8.5-10.1); CHLORIDE 105 MMOL/L (99-107); CREATININE 0.77 MG/DL (0.40-0.90); GLUCOSE 141 MG/DL (70-104); POTASSIUM 4.2 MMOL/L (3.5-5.1); SODIUM 144 MMOL/L (135-145); TOTAL CARBON DIOXIDE 32.5 MMOL/L (24-32); TOTAL PROTEIN 7.3 G/DL (6.4-8.2); eGFR 74 ML/MIN
[2020-12-03] MEDS ORDERED: CEPH250T PO (19:14)
--- NOTE | 2020-12-03 19:33 | NUR ---
PT MOVED TO H16 TO WAIT FOR TRANSPORT. SHE IS REQUESTING TO HAVE HER 02 TURNED UP TO 6LPM DESPITE HAVING AN 02 SAT OF 95% AND SPEAKING FULL SENTENCES AND MAKING DEMANDS TO STAFF. WHEN TOLD HER O2 IS ADEQUATE FOR A PT WITH COPD SHE BECOMES UPSET. I ATTEMPTED TO EDUCATE HER ON COPD AND O2 DELIVERY BUT SHE DEMANDS THAT WE ARE IGNORING HER AND THAT IS OUR WAY OF "TELLING HER TO SHUT UP" - PA SPOKE WITH PATIENT AND ATTEMPTED TO EDUCATE HER WELL.
== END 2020-12-03 21:33 | disposition home or self-care (01) ==
LOC: ER 17:28
DX: M79.605 Pain in left leg (principal); L03.116 Cellulitis of left lower limb; E78.00 Pure hypercholesterolemia, unspecified; I10 Essential (primary) hypertension; E11.9 Type 2 diabetes mellitus without complications; Z90.710 Acquired absence of both cervix and uterus; Z79.82 Long term (current) use of aspirin; Z79.2 Long term (current) use of antibiotics; Z79.899 Other long term (current) drug therapy; Z85.43 Personal history of malignant neoplasm of ovary
CPT/HCPCS: 80053; 85025; 93971; 99284

== ENCOUNTER 2021-06-20 12:47 | Inpatient (IN) | payer BC, OTHER ==
[~2021-06-20] VITALS: Ht 162.6 cm; Wt 136.4 kg
[~2021-06-20 12:47] MED LIST changes: +epiNEPHrine 0.1mg/ml 10ml syringe ONE; +sodium bicarbonate (8.4%) 1 mEq/ml syringe ONE
[2021-06-20 15:30] LABS: BASOPHILS % (AUTO) 0.2 % (0-1); EOSINOPHILS % (AUTO) 0.1 % (0-6); HEMATOCRIT 46.5 % (35.0-45.0); HEMOGLOBIN 14.9 g/dl (12.0-16.0); LYMPHOCYTES # (AUTO) 0.6 X10'3 (1.1-4.8); LYMPHOCYTES % (AUTO) 9.5 % (21-51); MEAN CORPUSCULAR HEMOGLOBIN 27.3 PG (27.0-31.0); MEAN CORPUSCULAR HGB CONC 32.1 g/dL (33.0-36.5); MEAN CORPUSCULAR VOLUME 85.3 FL (78-98); MEAN PLATELET VOLUME 9.6 FL (7.4-10.4); MONOCYTES # (AUTO) 0.9 X10'3 (0-0.9); MONOCYTES % (AUTO) 12.6 % (2-12); NEUTROPHILS # (AUTO) 5.2 X10'3 (1.8-7.7); NEUTROPHILS % (AUTO) 77.6 % (42-75); PLATELET COUNT 252 X10'3 (140-440); RED BLOOD COUNT 5.46 X10'6 (4.20-5.60); RED CELL DISTRIBUTION WIDTH 14.8 % (11.5-14.5); WHITE BLOOD COUNT 6.7 X10'3 (4.5-11.0)
[2021-06-20 15:49] LABS: ALANINE AMINOTRANSFERASE 35 U/L (12-78); ALBUMIN 2.6 G/DL (3.4-5.0); ALBUMIN/GLOBULIN RATIO 0.5 (1.1-1.5); ALKALINE PHOSPHATASE 77 IU/L (46-116); ANION GAP 5 (8-16); ASPARTATE AMINO TRANSFERASE 34 U/L (10-37); BILIRUBIN,TOTAL 0.8 MG/DL (0.1-1.0); BLOOD UREA NITROGEN 14 MG/DL (7-18); BUN/CREATININE RATIO 17.7 (6.6-38.0); CALCIUM 9.1 MG/DL (8.5-10.1); CHLORIDE 101 MMOL/L (99-107); CREATININE 0.79 MG/DL (0.40-0.90); GLUCOSE 122 MG/DL (70-104); POTASSIUM 3.3 MMOL/L (3.5-5.1); SODIUM 140 MMOL/L (135-145); TOTAL CARBON DIOXIDE 34.1 MMOL/L (24-32); TOTAL PROTEIN 7.5 G/DL (6.4-8.2); eGFR 71 ML/MIN
[2021-06-20] MEDS ORDERED: potassium Cl 20 mEq SR tablet PO STA (16:48)
[2021-06-20] MEDS ORDERED: dexamethasone sod phosphate 10mg/ml inj IV STA (18:05)
[2021-06-20 18:41] LABS: D-DIMER 0.93 MG/L FEU (0-0.50)
[2021-06-20] MEDS ORDERED: ALBUTEROL INHALER 1 PUFF/90 MCG INHALER IH PRN ×2 (19:35→19:40)
[2021-06-20] MEDS ORDERED: magnesium 2GM in 50ml NS 50 ML IV PRN (19:40)
[2021-06-20] MEDS ORDERED: acetaminophen 325mg tablet PO PRN (19:40)
[2021-06-20] MEDS ORDERED: iohexol 350MG/ML 100ml bottle IV ONE (19:40)
[2021-06-20] MEDS ORDERED: magnesium 4gm in 100ml NS 100 ML IV PRN (19:40)
[2021-06-20] MEDS ORDERED: bisacodyl 10mg suppository rectal RC PRN (19:40)
[2021-06-20] MEDS ORDERED: metoclopramide 5 mg/ml inj IV PRN (19:40)
[2021-06-20] MEDS ORDERED: magnesium Cl slow-release 64mg tablet PO PRN (19:40)
[2021-06-20] MEDS ORDERED: ondansetron 4mg rapidly disintigrating tab PO PRN (19:40)
[2021-06-20] MEDS ORDERED: ondansetron/PF 4mg/2ml inj IV PRN (19:40)
[2021-06-20] MEDS ORDERED: morphine 2 MG/ML inj. syringe IV PRN ×2 (19:40)
[2021-06-20] MEDS ORDERED: acetaminophen 650mg rectal suppository RC PRN (19:40)
[2021-06-20] MEDS ORDERED: potassium Cl 20 mEq SR tablet PO PRN ×2 (19:40)
[2021-06-20] MEDS ORDERED: potassium CL 10mEq/100ml bag 100 ML IV PRN (19:40)
[2021-06-20] MEDS ORDERED: PERFLUTREN PROTEIN-A MICROSPHR (Optison) 0.22 MG/ML 3ML VIAL IV ONE (19:40)
[2021-06-20] MEDS ORDERED: mag hydrox/Alum hydrox/simeth 30ml oral suspension PO PRN (19:40)
[2021-06-20] MEDS: docusate sod 100mg capsule PO SCH (20:00)
[2021-06-20] MEDS: K and/or MAG REPLACEMENT MC SCH (20:00)
[2021-06-20 20:21] LABS: POTASSIUM 3.2 MMOL/L (3.5-5.1)
[2021-06-20] MEDS ORDERED: LIDOcaine 2% 10ml TOPICAL JELLY (Urojet) TP ONE (20:40)
[2021-06-20] MEDS: ALBUTEROL INHALER 1 PUFF/90 MCG INHALER IH SCH (21:00)
[2021-06-21] MEDS: enoxaparin 40mg/0.4ml syringe SUBCUT SCH ×3 (01:16→20:13)
[2021-06-21] MEDS: guaiFENesin ER 600mg tablet PO SCH ×3 (01:19→20:15)
[2021-06-21] MEDS: normal saline 1000ml 1,000 ML IV SCH ×2 (01:25→09:58)
[2021-06-21] MEDS: DEXAMETHASONE 6 MG TABLET PO SCH ×2 (01:26→08:15)
[2021-06-21 02:00] VITALS: BP 135/77
[2021-06-21 02:04] LABS: HEMOGLOBIN A1C 6.5 % (4.5-6.2)
[2021-06-21 06:00] VITALS: BP 112/68
--- NOTE | 2021-06-21 06:27 | NUR ---
Problems reprioritized. Patient report given, questions answered & plan of care reviewed with SANDRA TIPTON.
--- NOTE | 2021-06-21 07:00 | NUR ---
Diabetes consult: Noted pt w/ hx of T2DM, A1c 6.5 well controlled, DM ed not warranted at this time, will continue to monitor. Addendum: 06/21/21 at [address] Amended: Links added.
[2021-06-21] MEDS: docusate sod 100mg capsule PO SCH ×2 (08:00→20:15)
[2021-06-21] MEDS: K and/or MAG REPLACEMENT MC SCH ×2 (08:00→20:00)
[2021-06-21] MEDS ORDERED: furosemide 20MG tablet PO SCH (08:00)
[2021-06-21] MEDS ORDERED: non-formulary drug (Fluticasone/Salmeterol (Advair 500-50 Diskus) 1 PUFFS) INH SCH (08:00)
[2021-06-21] MEDS: atorvastatin 10mg tablet PO SCH (08:14)
[2021-06-21] MEDS: amLODIPine 5mg tablet PO SCH (08:15)
[2021-06-21] MEDS: lisinopril 10 MG tablet PO SCH (08:15)
[2021-06-21] MEDS: ALBUTEROL INHALER 1 PUFF/90 MCG INHALER IH SCH ×3 (08:39→20:17)
[2021-06-21] MEDS: VILANTEROL IH SCH (08:48)
[2021-06-21] MEDS: FLUTICASONE IH SCH (08:48)
[2021-06-21 08:55] LABS: BASOPHILS % (AUTO) 0.2 % (0-1); EOSINOPHILS % (AUTO) 0 % (0-6); HEMOGLOBIN 14.5 g/dl (12.0-16.0); LYMPHOCYTES # (AUTO) 0.4 X10'3 (1.1-4.8); LYMPHOCYTES % (AUTO) 7.1 % (21-51); MEAN CORPUSCULAR HEMOGLOBIN 27.4 PG (27.0-31.0); MEAN CORPUSCULAR HGB CONC 32.3 g/dL (33.0-36.5); MEAN CORPUSCULAR VOLUME 85.1 FL (78-98); MEAN PLATELET VOLUME 9.9 FL (7.4-10.4); MONOCYTES # (AUTO) 0.5 X10'3 (0-0.9); MONOCYTES % (AUTO) 8.2 % (2-12); NEUTROPHILS # (AUTO) 4.9 X10'3 (1.8-7.7); NEUTROPHILS % (AUTO) 84.5 % (42-75); PLATELET COUNT 254 X10'3 (140-440); RED BLOOD COUNT 5.29 X10'6 (4.20-5.60); WHITE BLOOD COUNT 5.8 X10'3 (4.5-11.0)
[2021-06-21 09:00] LABS: ALANINE AMINOTRANSFERASE 33 U/L (12-78); ALBUMIN 2.5 G/DL (3.4-5.0); ALBUMIN/GLOBULIN RATIO 0.6 (1.1-1.5); ALKALINE PHOSPHATASE 79 IU/L (46-116); ANION GAP 11 (8-16); ASPARTATE AMINO TRANSFERASE 33 U/L (10-37); BILIRUBIN,TOTAL 0.6 MG/DL (0.1-1.0); BLOOD UREA NITROGEN 17 MG/DL (7-18); BUN/CREATININE RATIO 28.3 (6.6-38.0); CALCIUM 8.9 MG/DL (8.5-10.1); CHLORIDE 106 MMOL/L (99-107); GLUCOSE 139 MG/DL (70-104); SODIUM 144 MMOL/L (135-145); TOTAL CARBON DIOXIDE 26.6 MMOL/L (24-32); TOTAL PROTEIN 6.5 G/DL (6.4-8.2); eGFR > 90 ML/MIN
[2021-06-21 09:01] LABS: C-REACTIVE PROTEIN 15.19 MG/DL (0.0-0.5); CHOL/HDL RATIO 3.3 (0.00-4.99); CHOLESTEROL 127 MG/DL (0-200); HDL CHOLESTEROL 38 MG/DL (35-60); LACTATE DEHYDROGENASE 403 U/L (81-234); LDL CHOLESTEROL 65 MG/DL (50-100); MAGNESIUM 2.3 MG/DL (1.5-2.4); TRIGLYCERIDES 107 MG/DL (20-135)
[2021-06-21] MEDS ORDERED: REMDESIVIR INJ 200 MG in normal saline 100ml IV soln 100 ML IV ONE (09:05)
[2021-06-21 09:45] LABS: D-DIMER 0.99 MG/L FEU (0-0.50)
[2021-06-21 10:00] VITALS: BP 123/75
[2021-06-21] MEDS ORDERED: pneumococcal 23-VAL P-sac vacc 25 mcg/0.5ml vial IMVAC ONE (10:00)
[2021-06-21] MEDS ORDERED: FLU VACC QS2021-22(6MOS UP)/PF 60 MCG/0.5 ML SYRINGE IM ONE (10:00)
--- NOTE | 2021-06-21 14:38 | NUR ---
PRESSURE ULCER EDUCATION: DEFINITION: A pressure ulcer is an area of skin that breaks down when you stay in one position too long. The constant pressure against the skin reduces the blood flow to that area and the affected tissue dies. CAUSES: "Being bedridden or in a wheelchair "Fragile skin "Having a chronic condition, such as diabetes or vascular disease "Inability to move certain parts of your body without assistance "Older age "Incontinence of urine or stool SYMPTOMS: "A reddened area that DOES NOT turn white when pressed on - this can be the beginning of a pressure ulcer "A blister, deep sore or a crater - these can be advanced pressure ulcers FIRST AID: "Relieve the pressure on this area "Keep the area clean and dry "Call your primary doctor if you see any of the above symptoms "DO NOT massage the area "DO NOT use a donut shaped or ring shaped pillow- these actually interfere with the blood flow and cause complications PREVENTION: "Check for pressure ulcers everyday "Change position at least every two hours to relieve pressure "Use items that help relieve pressure- pillows, sheepskin, foam padding, and powders. "Keep skin clean and dry "Eat healthy well balanced meals "Exercise daily IF YOU SEE ANY OF THESE SYMPTOMS WHILE IN THE HOSPITAL - TELL YOUR NURSE IMMEDIATELY. IF YOU SEE ANY OF THESE SYMPTOMS WHILE AT HOME OR HAVE ANY QUESTIONS OR CONCERNS ABOUT PRESSURE ULCERS - CALL YOUR PRIMARY DOCTOR IMMEDIATELY. RECOMMEND: 1. Daily bathing with no rinse skin cleanser. 2. Cream/Lotion to be applied to skin after bathing. 3. Chanel care Q shift and prn soiling. 4. Turn patient Q 1-2 hrs and reposition with pillows. 5. Float heels to offload pressure. Addendum: 06/21/21 at 1439 by Toya Matias RN Amended: Links added.
[2021-06-21 18:00] VITALS: BP 119/76
--- NOTE | 2021-06-21 18:38 | NUR ---
Problems reprioritized. Patient report given, questions answered & plan of care reviewed with SANDRA Higginbotham.
[2021-06-21] MEDS: acetaminophen 325mg tablet PO PRN (20:14)
[2021-06-21] MEDS: dexamethasone inj 6 MG in dextrose 5%-water 100 ML IV SCH (20:16)
[2021-06-21 22:00] VITALS: BP 157/69
[2021-06-22 02:00] VITALS: BP 138/77
[2021-06-22 06:00] VITALS: BP 145/96
[2021-06-22] MEDS: FLUTICASONE IH SCH (06:32)
[2021-06-22] MEDS: VILANTEROL IH SCH (06:32)
[2021-06-22] MEDS: ALBUTEROL INHALER 1 PUFF/90 MCG INHALER IH SCH ×3 (06:32→21:00)
[2021-06-22] MEDS: lisinopril 10 MG tablet PO SCH (07:10)
[2021-06-22] MEDS: atorvastatin 10mg tablet PO SCH (07:10)
[2021-06-22] MEDS: guaiFENesin ER 600mg tablet PO SCH ×2 (07:10→20:02)
[2021-06-22] MEDS: amLODIPine 5mg tablet PO SCH (07:10)
[2021-06-22] MEDS: REMDESIVIR INJ 100 MG in normal saline 100ml IV soln 100 ML IV SCH (07:10)
[2021-06-22] MEDS: dexamethasone inj 6 MG in dextrose 5%-water 100 ML IV SCH ×2 (07:11→20:01)
[2021-06-22] MEDS: docusate sod 100mg capsule PO SCH ×2 (07:11→20:04)
[2021-06-22] MEDS: enoxaparin 40mg/0.4ml syringe SUBCUT SCH ×2 (07:11→20:05)
[2021-06-22 07:56] LABS: BASOPHILS % (AUTO) 0.1 % (0-1); EOSINOPHILS % (AUTO) 0 % (0-6); HEMATOCRIT 45.9 % (35.0-45.0); LYMPHOCYTES # (AUTO) 0.6 X10'3 (1.1-4.8); LYMPHOCYTES % (AUTO) 7.5 % (21-51); MEAN CORPUSCULAR HEMOGLOBIN 27.8 PG (27.0-31.0); MEAN CORPUSCULAR HGB CONC 32.6 g/dL (33.0-36.5); MEAN CORPUSCULAR VOLUME 85.3 FL (78-98); MEAN PLATELET VOLUME 10.2 FL (7.4-10.4); MONOCYTES # (AUTO) 0.9 X10'3 (0-0.9); MONOCYTES % (AUTO) 10.7 % (2-12); NEUTROPHILS # (AUTO) 6.7 X10'3 (1.8-7.7); NEUTROPHILS % (AUTO) 81.7 % (42-75); PLATELET COUNT 338 X10'3 (140-440); RED BLOOD COUNT 5.38 X10'6 (4.20-5.60); RED CELL DISTRIBUTION WIDTH 15.4 % (11.5-14.5); WHITE BLOOD COUNT 8.1 X10'3 (4.5-11.0)
[2021-06-22] MEDS ORDERED: furosemide 40mg tablet PO PRN (08:00)
[2021-06-22 08:26] LABS: ALANINE AMINOTRANSFERASE 37 U/L (12-78); ALBUMIN 2.5 G/DL (3.4-5.0); ALBUMIN/GLOBULIN RATIO 0.5 (1.1-1.5); ALKALINE PHOSPHATASE 79 IU/L (46-116); ANION GAP 7 (8-16); ASPARTATE AMINO TRANSFERASE 30 U/L (10-37); BILIRUBIN,TOTAL 0.4 MG/DL (0.1-1.0); BLOOD UREA NITROGEN 20 MG/DL (7-18); BUN/CREATININE RATIO 37.7 (6.6-38.0); C-REACTIVE PROTEIN 9.03 MG/DL (0.0-0.5); CALCIUM 9.2 MG/DL (8.5-10.1); CHLORIDE 108 MMOL/L (99-107); CREATININE 0.53 MG/DL (0.40-0.90); GLUCOSE 166 MG/DL (70-104); LACTATE DEHYDROGENASE 323 U/L (81-234); MAGNESIUM 2.3 MG/DL (1.5-2.4); POTASSIUM 4.5 MMOL/L (3.5-5.1); SODIUM 146 MMOL/L (135-145); TOTAL CARBON DIOXIDE 30.6 MMOL/L (24-32); TOTAL PROTEIN 7.1 G/DL (6.4-8.2); eGFR > 90 ML/MIN
[2021-06-22] MEDS: K and/or MAG REPLACEMENT MC SCH ×2 (08:45→20:00)
--- NOTE | 2021-06-22 08:55 | NUR ---
Message: [id number]. Can we get orders for nystatin powder? Cassi FLORES [phone]
--- NOTE | 2021-06-22 09:08 | NUR ---
Patient is refusing to be repositioned. She says she will try after she receives a breathing treatment.
[2021-06-22 10:00] VITALS: BP 149/68
[2021-06-22 14:00] VITALS: BP 155/67
[2021-06-22 18:00] VITALS: BP 155/75
--- NOTE | 2021-06-22 18:08 | NUR ---
Patient refuses to be on side despite skin injury education.
--- NOTE | 2021-06-22 18:20 | NUR ---
Problems reprioritized. Patient report given, questions answered & plan of care reviewed with Anahy FLORES.
--- NOTE | 2021-06-22 19:34 | NUR ---
HUMIDIFIED OXYGEN APPLIED SINCE SHE IS ON 6LITERS OXYGEN AND IT WAS DRYING HER NOSE OUT
[2021-06-22] MEDS: HYDROcodone/acetaminophen 5mg/325mg tablet PO PRN (20:22)
[2021-06-22 22:00] VITALS: BP 157/82
[2021-06-23 02:00] VITALS: BP 154/90
[2021-06-23 06:00] VITALS: BP 147/79
[2021-06-23] MEDS: guaiFENesin ER 600mg tablet PO SCH ×2 (07:36→21:20)
[2021-06-23] MEDS: amLODIPine 5mg tablet PO SCH (07:36)
[2021-06-23] MEDS: docusate sod 100mg capsule PO SCH ×2 (07:36→20:00)
[2021-06-23] MEDS: atorvastatin 10mg tablet PO SCH (07:36)
[2021-06-23] MEDS: lisinopril 10 MG tablet PO SCH (07:36)
[2021-06-23] MEDS: dexamethasone inj 6 MG in dextrose 5%-water 100 ML IV SCH ×2 (07:37→21:54)
[2021-06-23] MEDS: REMDESIVIR INJ 100 MG in normal saline 100ml IV soln 100 ML IV SCH (07:37)
[2021-06-23] MEDS: enoxaparin 40mg/0.4ml syringe SUBCUT SCH ×2 (07:39→20:00)
[2021-06-23] MEDS: ALBUTEROL INHALER 1 PUFF/90 MCG INHALER IH SCH ×3 (07:59→20:01)
[2021-06-23] MEDS: FLUTICASONE IH SCH (08:00)
[2021-06-23] MEDS: VILANTEROL IH SCH (08:00)
[2021-06-23 08:37] LABS: BASOPHILS % (AUTO) 0.2 % (0-1); EOSINOPHILS % (AUTO) 0 % (0-6); HEMOGLOBIN 15.4 g/dl (12.0-16.0); LYMPHOCYTES # (AUTO) 0.4 X10'3 (1.1-4.8); MEAN CORPUSCULAR HEMOGLOBIN 27.5 PG (27.0-31.0); MONOCYTES # (AUTO) 0.9 X10'3 (0-0.9); RED BLOOD COUNT 5.59 X10'6 (4.20-5.60)
[2021-06-23 08:39] LABS: HEMATOCRIT 48.1 % (35.0-45.0); LYMPHOCYTES % (AUTO) 4.1 % (21-51); MEAN PLATELET VOLUME 10.3 FL (7.4-10.4); NEUTROPHILS # (AUTO) 7.5 X10'3 (1.8-7.7); NEUTROPHILS % (AUTO) 85.7 % (42-75); PLATELET COUNT 342 X10'3 (140-440); RED CELL DISTRIBUTION WIDTH 15.4 % (11.5-14.5); WHITE BLOOD COUNT 8.7 X10'3 (4.5-11.0)
--- NOTE | 2021-06-23 08:40 | NUR ---
Message: [id number]. Patient is complaining of burning sensation when urinating. Can we get orders for UA? Cassi FLORES [id number]
[2021-06-23 09:05] LABS: D-DIMER 0.59 MG/L FEU (0-0.50)
[2021-06-23 10:00] VITALS: BP 153/89
[2021-06-23 11:03] LABS: TOTAL CELLS COUNTED 100
[2021-06-23 11:04] LABS: PLATELET ESTIMATE NORMAL
[2021-06-23 13:59] LABS: CLARITY,URINE CLOUDY (Clear); COLOR,URINE YELLOW (Yellow); GLUCOSE, URINE NEGATIVE (Neg); KETONES,URINE NEGATIVE (Neg); LEUKOCYTE ESTERASE ,URINE MODERATE (Neg); NITRITES, URINE POSITIVE (Neg); OCCULT BLOOD,URINE SMALL (Neg); PH,URINE >=9.0 (4.8-8.0); PROTEIN,URINE 30 mg/dl (Neg)
[2021-06-23 14:00] VITALS: BP 149/86
[2021-06-23 14:01] LABS: UA COLLECTION TYPE FOLEY CATH
[2021-06-23 14:05] LABS: TRIPLE PHOSPHATE CRYST 3+ /HPF (NEGATIVE)
[2021-06-23 14:06] LABS: BACTERIA,URINE 3+ /HPF (Neg); WBC,URINE 50-100 /HPF (0-4)
[2021-06-23 14:07] LABS: SQUAMOUS EPITHELIAL CELL,UR FEW /LPF (FEW)
--- NOTE | 2021-06-23 14:21 | NUR ---
Laboratory notified about pending chemistry lab. They said they will send someone up to redraw labs.
--- NOTE | 2021-06-23 15:47 | NUR ---
PAGER ID: [phone] MESSAGE: [id number]. Patient is saying she feels her throat is closing. She is alert, o2 is 90%. Swallows fine. Cassi FLORES [id number]
--- NOTE | 2021-06-23 15:53 | NUR ---
Message: [id number]. Patient is saying she feels her throat is closing. She is alert, o2 is 90%. Swallows fine. Cassi FLORES [id number]
--- NOTE | 2021-06-23 16:21 | NUR ---
Patient murphy catheter was assessed and is now draining well. She is still refusing to be repositioned even after education on bed sores. She refuses to have her heels elevated off of the bed. Skin fold wiped with CHG wipes and pillow cases placed for moisture per patient request.
[2021-06-23 18:00] VITALS: BP 141/85
--- NOTE | 2021-06-23 18:36 | NUR ---
Problems reprioritized. Patient report given, questions answered & plan of care reviewed with Latricia FLORES.
[2021-06-23 20:56] LABS: ALANINE AMINOTRANSFERASE 37 U/L (12-78); ALBUMIN 2.7 G/DL (3.4-5.0); ALBUMIN/GLOBULIN RATIO 0.7 (1.1-1.5); ALKALINE PHOSPHATASE 74 IU/L (46-116); ANION GAP 3 (8-16); ASPARTATE AMINO TRANSFERASE 18 U/L (10-37); BILIRUBIN,TOTAL 0.5 MG/DL (0.1-1.0); BLOOD UREA NITROGEN 23 MG/DL (7-18); BUN/CREATININE RATIO 38.3 (6.6-38.0); C-REACTIVE PROTEIN 2.45 MG/DL (0.0-0.5); CALCIUM 8.9 MG/DL (8.5-10.1); CHLORIDE 109 MMOL/L (99-107); GLUCOSE 173 MG/DL (70-104); LACTATE DEHYDROGENASE 276 U/L (81-234); MAGNESIUM 2.2 MG/DL (1.5-2.4); POTASSIUM 4.4 MMOL/L (3.5-5.1); SODIUM 147 MMOL/L (135-145); TOTAL CARBON DIOXIDE 34.8 MMOL/L (24-32); TOTAL PROTEIN 6.8 G/DL (6.4-8.2); eGFR > 90 ML/MIN
[2021-06-23 22:00] VITALS: BP 129/78
[2021-06-23] MEDS: CefTRIAXone/D5W-Rocephin 1gm 50 ML IV SCH (23:16)
[2021-06-24 02:00] VITALS: BP 147/94
[2021-06-24 06:00] VITALS: BP 158/95
--- NOTE | 2021-06-24 07:05 | NUR ---
Problems reprioritized. Patient report given, questions answered & plan of care reviewed with SANDRA Kulkarni.
[2021-06-24] MEDS: atorvastatin 10mg tablet PO SCH (07:49)
[2021-06-24] MEDS: guaiFENesin ER 600mg tablet PO SCH ×2 (07:49→21:30)
[2021-06-24] MEDS: amLODIPine 5mg tablet PO SCH (07:50)
[2021-06-24] MEDS: HYDROcodone/acetaminophen 10/325mg tab PO PRN ×3 (07:51→17:26)
[2021-06-24] MEDS: lisinopril 10 MG tablet PO SCH (07:52)
[2021-06-24] MEDS: enoxaparin 40mg/0.4ml syringe SUBCUT SCH ×2 (07:52→21:30)
[2021-06-24] MEDS: docusate sod 100mg capsule PO SCH ×2 (07:52→20:00)
[2021-06-24] MEDS: dexamethasone inj 6 MG in dextrose 5%-water 100 ML IV SCH ×2 (07:53→21:40)
[2021-06-24] MEDS: FLUTICASONE IH SCH (08:00)
[2021-06-24] MEDS: VILANTEROL IH SCH (08:00)
[2021-06-24] MEDS: K and/or MAG REPLACEMENT MC SCH ×2 (08:00→20:00)
[2021-06-24] MEDS: CefTRIAXone/D5W-Rocephin 1gm 50 ML IV SCH (08:34)
[2021-06-24] MEDS: ALBUTEROL INHALER 1 PUFF/90 MCG INHALER IH SCH ×3 (09:00→20:35)
[2021-06-24 09:03] LABS: BASOPHILS # (AUTO) 0.1 X10'3 (0-0.2); EOSINOPHILS % (AUTO) 0 % (0-6); HEMATOCRIT 49.9 % (35.0-45.0); HEMOGLOBIN 15.9 g/dl (12.0-16.0); LYMPHOCYTES # (AUTO) 0.4 X10'3 (1.1-4.8); LYMPHOCYTES % (AUTO) 4.4 % (21-51); MEAN CORPUSCULAR HEMOGLOBIN 27.2 PG (27.0-31.0); MEAN CORPUSCULAR HGB CONC 31.8 g/dL (33.0-36.5); MEAN CORPUSCULAR VOLUME 85.4 FL (78-98); MEAN PLATELET VOLUME 9.9 FL (7.4-10.4); MONOCYTES # (AUTO) 1.2 X10'3 (0-0.9); MONOCYTES % (AUTO) 12.9 % (2-12); NEUTROPHILS # (AUTO) 7.9 X10'3 (1.8-7.7); NEUTROPHILS % (AUTO) 81.7 % (42-75); PLATELET COUNT 429 X10'3 (140-440); RED BLOOD COUNT 5.84 X10'6 (4.20-5.60); RED CELL DISTRIBUTION WIDTH 15.1 % (11.5-14.5); WHITE BLOOD COUNT 9.7 X10'3 (4.5-11.0)
[2021-06-24 09:20] LABS: D-DIMER 0.54 MG/L FEU (0-0.50)
[2021-06-24 09:27] LABS: ALANINE AMINOTRANSFERASE 40 U/L (12-78); ALBUMIN 2.8 G/DL (3.4-5.0); ALBUMIN/GLOBULIN RATIO 0.7 (1.1-1.5); ALKALINE PHOSPHATASE 76 IU/L (46-116); ANION GAP 7 (8-16); ASPARTATE AMINO TRANSFERASE 22 U/L (10-37); BILIRUBIN,TOTAL 0.5 MG/DL (0.1-1.0); BLOOD UREA NITROGEN 25 MG/DL (7-18); BUN/CREATININE RATIO 36.8 (6.6-38.0); C-REACTIVE PROTEIN 1.58 MG/DL (0.0-0.5); CALCIUM 9.2 MG/DL (8.5-10.1); CHLORIDE 106 MMOL/L (99-107); CREATININE 0.68 MG/DL (0.40-0.90); GLUCOSE 205 MG/DL (70-104); LACTATE DEHYDROGENASE 269 U/L (81-234); MAGNESIUM 2.3 MG/DL (1.5-2.4); POTASSIUM 4.4 MMOL/L (3.5-5.1); SODIUM 146 MMOL/L (135-145); TOTAL CARBON DIOXIDE 32.9 MMOL/L (24-32); TOTAL PROTEIN 6.8 G/DL (6.4-8.2); eGFR 85 ML/MIN
--- NOTE | 2021-06-24 09:43 | NUR ---
0935- RT AT PATIENTS BEDSIDE TO ADMINISTER Q6 MDI TREATMENT. PATIENT STATED THAT SHE HAS ALREADY TAKEN MDI TREATMENT HERSELF. PATIENT CURRENTLY ON 8L HIGH FLOW SALTER, SPO2 86%-89%, SHOWING TO SIGNS OF SOB OR DISTRESS. RT WILL RETURN FOR NEXT SCHEDULED TREATMENT. Addendum: 06/24/21 at 0946 by Violette Naylor RT Amended: Links added.
[2021-06-24] MEDS: REMDESIVIR INJ 100 MG in normal saline 100ml IV soln 100 ML IV SCH (09:59)
[2021-06-24 10:00] LABS: ANISOCYTOSIS 1+; MICROCYTOSIS 1+; PLATELET ESTIMATE NORMAL; TOTAL CELLS COUNTED 100
[2021-06-24 11:00] VITALS: BP 140/74
--- NOTE | 2021-06-24 12:00 | NUR ---
Message: Traci Soni [id number] bg ELEVATED WITH 6.5 a1c. dO YOU WANT US TO TREAT? nO ORDERS. also F/C LEAKING. SEDIMENT. oRDER TO FLUSH F/C? AND LASTLY- PT. ANXIOUS. VERY. ATIVAN? tHANK YOU Dannie [phone]
--- NOTE | 2021-06-24 13:23 | NUR ---
Initial: Pt admit for acute on chronic respiratory failure and COVID PNA with hypokalemia. Pt initially on a heart healthy CHO controlled diet which was changed to mechanical soft 06/23 per RN. Pt with fluctuating PO intake throughout LOS, documented with average 40% PO intake since admit as pt often refuses the protein on meals. Noted pt documented to have refused breakfast and lunch today. Per EMR pt on HFNC. Recommend Ensure Enlive TIDWM to optimize PO intake, though if pt not accepting of ONS and/or PO intake of meals does not improve pt would benefit from nutrition support. LBM 06/20, with routine bowel care available though pt refuses at times per EMR. D/w dietary to send prune juice with next meal to assist with bowel regularity. Will continue to follow closely and make recommendations as appropriate. Recommendations: 1) Continue mechanical soft diet; monitor need for further texture modification to assist with meals 2) Ensure Enlive TIDWM, pending physician approval in EMR 3) Consider nutrition support IF PO intake does not improve 4) Routine bowel care 5) Scaled weight this admit; weekly scaled weights thereafter Addendum: 06/24/21 at [address] Amended: Links added.
[2021-06-24 14:19] VITALS: BP 134/83
--- NOTE | 2021-06-24 15:27 | NUR ---
Message: Minerva Zachariah [id number] Do you have this pt? she is diabetic and no protocol ordered. do you want? We are not checking BG and BGs in lab above 160. Cayla [phone]
[2021-06-24] MEDS ORDERED: glucagon, human recombinant 1mg kit SUBCUT PRN (15:30)
[2021-06-24] MEDS ORDERED: dextrose 50%-water 50ml dispensing syringe IV PRN ×2 (15:30)
[2021-06-24] MEDS ORDERED: dextrose ORAL solution 15 GM/59 ML bottle PO PRN ×2 (15:30)
[2021-06-24] MEDS ORDERED: MESSAGE TO PHARMACY PO ONE (15:30)
--- NOTE | 2021-06-24 17:00 | NUR ---
Pt. has refused several times to turn stating "It's not wet." Educated on protecting skin integrity. Pt. still refused.
[2021-06-24] MEDS: magnesium hydroxide 30ml (MOM) UD suspension PO PRN (17:27)
[2021-06-24 18:00] VITALS: BP 142/82
[2021-06-24] MEDS: lactose-reduced food (Ensure Enlive) - 237ml bottle PO SCH (18:00)
--- NOTE | 2021-06-24 18:48 | NUR ---
Gave report to Joy FLORES.
[2021-06-24] MEDS: insulin glargine (Lantus) pen - multi-dose SQ SCH (21:39)
[2021-06-24 22:00] VITALS: BP 144/86
--- NOTE | 2021-06-25 00:54 | NUR ---
patient refused care during shift Addendum: 06/25/21 at 0054 by Joy Yarbrough RN Amended: Links added.
--- NOTE | 2021-06-25 00:57 | NUR ---
patient refused care during shift Addendum: 06/25/21 at 0057 by Joy Yarbrough RN Amended: Links added.
[2021-06-25 02:00] VITALS: BP 142/90
[2021-06-25 02:01] VITALS: BP 142/90
--- NOTE | 2021-06-25 02:37 | NUR ---
patient has incentive spirometer at bedside despite teaching patient refused
--- NOTE | 2021-06-25 06:22 | NUR ---
patient in bed awake and alert continue to refused care offered to reposition on bed patient refused despite teaching
--- NOTE | 2021-06-25 06:30 | NUR ---
Patient in room ORTHO 4012. I have received report from NOC shift RN and had the opportunity to ask questions and assume patient care.
--- NOTE | 2021-06-25 07:10 | NUR ---
Patient is non compliant with turning and refuses to do so. Will continue to encourage and educate. Addendum: 06/25/21 at 0711 by Roxana Snyder RN Amended: Links added.
[2021-06-25] MEDS: dexamethasone inj 6 MG in dextrose 5%-water 100 ML IV SCH ×2 (07:33→20:32)
[2021-06-25] MEDS: guaiFENesin ER 600mg tablet PO SCH ×3 (07:34→20:32)
[2021-06-25] MEDS: docusate sod 100mg capsule PO SCH ×3 (07:34→20:00)
[2021-06-25] MEDS: atorvastatin 10mg tablet PO SCH (07:34)
[2021-06-25] MEDS: amLODIPine 5mg tablet PO SCH (07:35)
[2021-06-25] MEDS: lisinopril 10 MG tablet PO SCH (07:35)
[2021-06-25] MEDS: enoxaparin 40mg/0.4ml syringe SUBCUT SCH ×2 (07:41→20:33)
[2021-06-25] MEDS: HYDROcodone/acetaminophen 10/325mg tab PO PRN (07:42)
[2021-06-25 07:45] VITALS: BP 137/82
--- NOTE | 2021-06-25 07:52 | NUR ---
Patient states she is non mobile and can not stand or walk, "I move my legs and feet around, and my toes."
[2021-06-25] MEDS: lactose-reduced food (Ensure Enlive) - 237ml bottle PO SCH (08:00)
[2021-06-25] MEDS: K and/or MAG REPLACEMENT MC SCH ×2 (08:00→20:00)
[2021-06-25] MEDS: FLUTICASONE IH SCH (08:00)
[2021-06-25] MEDS: VILANTEROL IH SCH (08:00)
[2021-06-25] MEDS: REMDESIVIR INJ 100 MG in normal saline 100ml IV soln 100 ML IV SCH (08:35)
[2021-06-25] MEDS: CefTRIAXone/D5W-Rocephin 1gm 50 ML IV SCH (08:40)
--- NOTE | 2021-06-25 08:44 | NUR ---
Patient refused lab draws today.
[2021-06-25] MEDS: ALBUTEROL INHALER 1 PUFF/90 MCG INHALER IH SCH ×3 (09:00→21:22)
[2021-06-25 10:00] VITALS: BP 125/63
--- NOTE | 2021-06-25 12:16 | NUR ---
Dangling at the side of bed. Patient asking to be put in WC. Per PT notes patient gets out of breath with resistance Exercised BUE and anlke pumps, SOB with activity and is profoundly limited mobility. Patient with a trapeze, able to pull self up with minimal assist to dangle. Patient became SOB with movement, recovered and is currently tolerating dangling at the side of bed with bedside tray in front of her.
--- NOTE | 2021-06-25 14:03 | NUR ---
FC dislodged. Placed new FC.
--- NOTE | 2021-06-25 14:04 | NUR ---
FC dislodged, placed new one. Addendum: 06/25/21 at 1405 by Roxana Snyder RN Amended: Links added.
--- NOTE | 2021-06-25 14:18 | NUR ---
Patient requesting not to be on 10L O2 Addendum: 06/25/21 at 1419 by Roxana Snyder RN Amended: Links added.
--- NOTE | 2021-06-25 15:10 | NUR ---
Patient refusing to work on her IS, she states to take it off her bedside table and place it in her bucket.
[2021-06-25 16:00] VITALS: BP 136/76
--- NOTE | 2021-06-25 17:17 | NUR ---
Before patients FC came out FC was leaking. There was a good amount of urine on the dryflow. Counted as 1 void. Addendum: 06/25/21 at 1719 by Roxana Snyder RN Amended: Links added.
[2021-06-25 18:00] VITALS: BP 156/96
--- NOTE | 2021-06-25 18:30 | NUR ---
Problems reprioritized. Patient report given, questions answered & plan of care reviewed with Serenity FLORES.
[2021-06-25 19:44] LABS: BASOPHILS # (AUTO) 0.1 X10'3 (0-0.2); BASOPHILS % (AUTO) 0.9 % (0-1); EOSINOPHILS % (AUTO) 0 % (0-6); HEMATOCRIT 48.3 % (35.0-45.0); HEMOGLOBIN 15.4 g/dl (12.0-16.0); LYMPHOCYTES # (AUTO) 0.3 X10'3 (1.1-4.8); LYMPHOCYTES % (AUTO) 2.7 % (21-51); MEAN CORPUSCULAR HEMOGLOBIN 27.3 PG (27.0-31.0); MEAN CORPUSCULAR HGB CONC 31.9 g/dL (33.0-36.5); MEAN CORPUSCULAR VOLUME 85.5 FL (78-98); MEAN PLATELET VOLUME 9.7 FL (7.4-10.4); MONOCYTES # (AUTO) 1.3 X10'3 (0-0.9); MONOCYTES % (AUTO) 12.2 % (2-12); NEUTROPHILS # (AUTO) 8.7 X10'3 (1.8-7.7); NEUTROPHILS % (AUTO) 84.2 % (42-75); PLATELET COUNT 363 X10'3 (140-440); RED BLOOD COUNT 5.65 X10'6 (4.20-5.60); RED CELL DISTRIBUTION WIDTH 15.2 % (11.5-14.5); WHITE BLOOD COUNT 10.3 X10'3 (4.5-11.0)
[2021-06-25 20:07] LABS: D-DIMER 0.54 MG/L FEU (0-0.50)
[2021-06-25 20:23] LABS: ALANINE AMINOTRANSFERASE 33 U/L (12-78); ALBUMIN 2.5 G/DL (3.4-5.0); ALBUMIN/GLOBULIN RATIO 0.7 (1.1-1.5); ALKALINE PHOSPHATASE 64 IU/L (46-116); ANION GAP 4 (8-16); ASPARTATE AMINO TRANSFERASE 22 U/L (10-37); BILIRUBIN,TOTAL 0.3 MG/DL (0.1-1.0); BLOOD UREA NITROGEN 28 MG/DL (7-18); BUN/CREATININE RATIO 45.9 (6.6-38.0); C-REACTIVE PROTEIN 0.58 MG/DL (0.0-0.5); CALCIUM 8.8 MG/DL (8.5-10.1); CHLORIDE 108 MMOL/L (99-107); CREATININE 0.61 MG/DL (0.40-0.90); GLUCOSE 158 MG/DL (70-104); LACTATE DEHYDROGENASE 273 U/L (81-234); POTASSIUM 4.5 MMOL/L (3.5-5.1); SODIUM 147 MMOL/L (135-145); TOTAL CARBON DIOXIDE 34.9 MMOL/L (24-32); TOTAL PROTEIN 5.9 G/DL (6.4-8.2); eGFR > 90 ML/MIN
[2021-06-25] MEDS: insulin glargine (Lantus) pen - multi-dose SQ SCH (21:00)
[2021-06-26 02:12] VITALS: BP 156/96
[2021-06-26 06:00] VITALS: BP 126/69
--- NOTE | 2021-06-26 06:37 | NUR ---
Problems reprioritized. Patient report given, questions answered & plan of care reviewed with Chilango.
[2021-06-26] MEDS: guaiFENesin ER 600mg tablet PO SCH ×2 (08:00→20:42)
[2021-06-26] MEDS: meropenem inj 1 GM in normal saline 100ml IV soln 100 ML IV SCH ×4 (08:00→16:42)
[2021-06-26] MEDS: atorvastatin 10mg tablet PO SCH (08:00)
[2021-06-26] MEDS: amLODIPine 5mg tablet PO SCH (08:00)
[2021-06-26] MEDS: docusate sod 100mg capsule PO SCH ×3 (08:00→20:42)
[2021-06-26] MEDS: lisinopril 10 MG tablet PO SCH (08:00)
[2021-06-26] MEDS: enoxaparin 40mg/0.4ml syringe SUBCUT SCH ×3 (08:00→20:43)
[2021-06-26] MEDS: K and/or MAG REPLACEMENT MC SCH ×2 (08:00→20:00)
[2021-06-26] MEDS: dexamethasone inj 6 MG in dextrose 5%-water 100 ML IV SCH ×2 (08:00→20:43)
[2021-06-26] MEDS: ALBUTEROL INHALER 1 PUFF/90 MCG INHALER IH SCH ×4 (08:54→20:59)
[2021-06-26 10:00] VITALS: BP 131/69
[2021-06-26] MEDS ORDERED: FLU VACC QS2021-22(6MOS UP)/PF 60 MCG/0.5 ML SYRINGE IM ONE (10:00)
[2021-06-26 18:00] VITALS: BP 123/77
[2021-06-26] MEDS: lactobacillus rhamnosus 10,000 MMU CELLS/CAPSULE PO SCH (20:42)
[2021-06-26] MEDS: insulin glargine (Lantus) pen - multi-dose SQ SCH (21:00)
[2021-06-26 21:14] LABS: D-DIMER 0.56 MG/L FEU (0-0.50)
[2021-06-26 21:21] LABS: C-REACTIVE PROTEIN 0.7 MG/DL (0.0-0.5)
[2021-06-26 22:00] VITALS: BP 111/65
[2021-06-27] MEDS: meropenem inj 1 GM in normal saline 100ml IV soln 100 ML IV SCH ×3 (00:22→17:43)
[2021-06-27 02:00] VITALS: BP 124/61
[2021-06-27] MEDS: nystatin 15 GM powder TP SCH (04:44)
[2021-06-27 06:00] VITALS: BP 124/65
[2021-06-27] MEDS: docusate sod 100mg capsule PO SCH ×2 (08:00→20:00)
[2021-06-27] MEDS: enoxaparin 40mg/0.4ml syringe SUBCUT SCH ×2 (08:00→20:00)
[2021-06-27] MEDS: K and/or MAG REPLACEMENT MC SCH ×2 (08:00→19:15)
[2021-06-27] MEDS: lisinopril 10 MG tablet PO SCH (08:45)
[2021-06-27] MEDS: guaiFENesin ER 600mg tablet PO SCH ×2 (08:46→20:20)
[2021-06-27] MEDS: dexamethasone inj 6 MG in dextrose 5%-water 100 ML IV SCH ×2 (08:46→20:20)
[2021-06-27] MEDS: atorvastatin 10mg tablet PO SCH (08:46)
[2021-06-27] MEDS: lactobacillus rhamnosus 10,000 MMU CELLS/CAPSULE PO SCH ×2 (08:46→20:20)
[2021-06-27] MEDS: amLODIPine 5mg tablet PO SCH (08:46)
[2021-06-27] MEDS: VILANTEROL IH SCH ×2 (08:47→10:10)
[2021-06-27] MEDS: FLUTICASONE IH SCH ×2 (08:47→10:10)
[2021-06-27] MEDS: ALBUTEROL INHALER 1 PUFF/90 MCG INHALER IH SCH ×3 (09:00→20:23)
[2021-06-27 09:06] LABS: C-REACTIVE PROTEIN 0.61 MG/DL (0.0-0.5)
[2021-06-27 09:09] LABS: D-DIMER 0.56 MG/L FEU (0-0.50)
--- NOTE | 2021-06-27 09:19 | NUR ---
Reassessment: Pt continues on Mechanical soft diet though Carb control diet was added 06/24. Recommend liberalizing to Regular diet as pt w/ poor PO intake, avg 25% x 10 meals not meeting needs. Note Ensure Enlive TID unverified in EMR though pt can still benefit from them. Given inadequate intake for 7 days and generalized severe muscle weakness, pt meats minimum criteria for malnutrition, MD notified. If pt not accepting of ONS and/or PO intake of meals does not improve pt would benefit from nutrition support. LBM 06/23, with routine bowel care, though pt did refuse PRN MoM 06/24. Will continue to follow closely and make recommendations as appropriate. Recommendations: 1) Continue mechanical soft diet; liberalize to Regular 2) Ensure Enlive TIDWM, pending physician approval in EMR 3) Consider nutrition support IF PO intake does not improve 4) Routine bowel care 5) Scaled weight this admit; weekly scaled weights thereafter Addendum: 06/27/21 at [address] Amended: Links added.
[2021-06-27 10:00] VITALS: BP 122/77
--- NOTE | 2021-06-27 13:52 | NUR ---
f/u 06/28: Noted pt diet order for mechanical soft/pudding thick liquids. D/w SANDRA who states pt is okay on thin liquids, to update diet order. D/w dietary. Addendum: 06/27/21 at [address] Amended: Links added.
[2021-06-27 14:00] VITALS: BP 124/72
--- NOTE | 2021-06-27 14:00 | NUR ---
Refuses Allison removal
--- NOTE | 2021-06-27 14:16 | NUR ---
PRESSURE ULCER EDUCATION: DEFINITION: A pressure ulcer is an area of skin that breaks down when you stay in one position too long. The constant pressure against the skin reduces the blood flow to that area and the affected tissue dies. CAUSES: "Being bedridden or in a wheelchair "Fragile skin "Having a chronic condition, such as diabetes or vascular disease "Inability to move certain parts of your body without assistance "Older age "Incontinence of urine or stool SYMPTOMS: "A reddened area that DOES NOT turn white when pressed on - this can be the beginning of a pressure ulcer "A blister, deep sore or a crater - these can be advanced pressure ulcers FIRST AID: "Relieve the pressure on this area "Keep the area clean and dry "Call your primary doctor if you see any of the above symptoms "DO NOT massage the area "DO NOT use a donut shaped or ring shaped pillow- these actually interfere with the blood flow and cause complications PREVENTION: "Check for pressure ulcers everyday "Change position at least every two hours to relieve pressure "Use items that help relieve pressure- pillows, sheepskin, foam padding, and powders. "Keep skin clean and dry "Eat healthy well balanced meals "Exercise daily IF YOU SEE ANY OF THESE SYMPTOMS WHILE IN THE HOSPITAL - TELL YOUR NURSE IMMEDIATELY. IF YOU SEE ANY OF THESE SYMPTOMS WHILE AT HOME OR HAVE ANY QUESTIONS OR CONCERNS ABOUT PRESSURE ULCERS - CALL YOUR PRIMARY DOCTOR IMMEDIATELY. Addendum: 06/27/21 at 1416 by Toya Matias RN Amended: Links added.
[2021-06-27] MEDS: guaiFENesin/DM 10ml UD oral syrup PO PRN (14:58)
--- NOTE | 2021-06-27 17:45 | NUR ---
Miss Soni has been assessed as indicated. She has been noted to be both pleasant and cooperative this shift. She has continued to deny pain. She has continued to refuse PT and repositioning. She has requested and was given lotion applied to BLE. Interdry to abdominal fold has been changes out after area was washed and patted dry. Bilateral breast folds were washed patted dry and Nystatin powder applied. She declined dinner stating that she had meatloaf today as the reason why she did so. She refused blood sugar check at dinner time. Her daughter has dropped of some personal items. She was quite upset because she was not permitted to keep and use an extension cord from home. As possession of the item is against hospital policy. She is resting quietly and will continue to be monitored
[2021-06-27 18:00] VITALS: BP 115/72
--- NOTE | 2021-06-27 18:15 | NUR ---
Problems reprioritized. Patient report given, questions answered & plan of care reviewed with SUZIE .
[2021-06-27] MEDS: insulin glargine (Lantus) pen - multi-dose SQ SCH (21:00)
[2021-06-27 22:00] VITALS: BP 101/65
[2021-06-28] MEDS: meropenem inj 1 GM in normal saline 100ml IV soln 100 ML IV SCH ×3 (00:22→16:00)
[2021-06-28 02:00] VITALS: BP_SYST 115; BP_SYST 141; BP_DIAS 57; BP_DIAS 61
[2021-06-28] MEDS: guaiFENesin/DM 10ml UD oral syrup PO PRN ×3 (03:01→21:24)
[2021-06-28 06:00] VITALS: BP 125/66
[2021-06-28] MEDS: K and/or MAG REPLACEMENT MC SCH ×2 (08:00→20:00)
[2021-06-28] MEDS: VILANTEROL IH SCH (08:00)
[2021-06-28] MEDS: FLUTICASONE IH SCH (08:00)
[2021-06-28] MEDS: lisinopril 10 MG tablet PO SCH (09:03)
[2021-06-28] MEDS: docusate sod 100mg capsule PO SCH ×2 (09:04→20:35)
[2021-06-28] MEDS: guaiFENesin ER 600mg tablet PO SCH ×2 (09:04→20:35)
[2021-06-28] MEDS: atorvastatin 10mg tablet PO SCH (09:04)
[2021-06-28] MEDS: lactobacillus rhamnosus 10,000 MMU CELLS/CAPSULE PO SCH ×2 (09:04→20:35)
[2021-06-28] MEDS: amLODIPine 5mg tablet PO SCH (09:04)
[2021-06-28] MEDS: dexamethasone inj 6 MG in dextrose 5%-water 100 ML IV SCH ×2 (09:05→20:35)
[2021-06-28] MEDS: enoxaparin 40mg/0.4ml syringe SUBCUT SCH ×2 (09:05→20:48)
[2021-06-28] MEDS: ALBUTEROL INHALER 1 PUFF/90 MCG INHALER IH SCH ×3 (09:20→20:24)
[2021-06-28 11:00] VITALS: BP 133/66
[2021-06-28] MEDS: insulin Lispro (HumaLOG) vial - multi-dose SQ SCH (13:34)
[2021-06-28] MEDS: insulin glargine (Lantus) pen - multi-dose SQ SCH (21:05)
[2021-06-29] MEDS: meropenem inj 1 GM in normal saline 100ml IV soln 100 ML IV SCH ×3 (00:10→16:55)
[2021-06-29] MEDS: HYDROcodone/acetaminophen 10/325mg tab PO PRN (00:16)
[2021-06-29 02:00] VITALS: BP 116/59
[2021-06-29 06:00] VITALS: BP 139/72
[2021-06-29] MEDS: K and/or MAG REPLACEMENT MC SCH ×2 (08:00→19:54)
[2021-06-29] MEDS: ALBUTEROL INHALER 1 PUFF/90 MCG INHALER IH SCH ×3 (08:08→20:02)
[2021-06-29] MEDS: dexamethasone inj 6 MG in dextrose 5%-water 100 ML IV SCH ×2 (09:45→19:49)
[2021-06-29] MEDS: amLODIPine 5mg tablet PO SCH (09:46)
[2021-06-29] MEDS: lisinopril 10 MG tablet PO SCH (09:46)
[2021-06-29] MEDS: atorvastatin 10mg tablet PO SCH (09:47)
[2021-06-29] MEDS: docusate sod 100mg capsule PO SCH ×2 (09:48→19:48)
[2021-06-29] MEDS: lactobacillus rhamnosus 10,000 MMU CELLS/CAPSULE PO SCH ×2 (09:48→19:48)
[2021-06-29] MEDS: guaiFENesin/DM 10ml UD oral syrup PO PRN ×2 (09:49→19:48)
[2021-06-29] MEDS: guaiFENesin ER 600mg tablet PO SCH ×2 (09:50→19:48)
[2021-06-29] MEDS: enoxaparin 40mg/0.4ml syringe SUBCUT SCH ×2 (09:50→19:49)
[2021-06-29] MEDS: FLUTICASONE IH SCH (09:56)
[2021-06-29] MEDS: VILANTEROL IH SCH (09:56)
[2021-06-29] MEDS: insulin Lispro (HumaLOG) vial - multi-dose SQ SCH ×2 (09:59→19:51)
[2021-06-29 10:00] VITALS: BP 132/67
--- NOTE | 2021-06-29 13:45 | NUR ---
Patient in room ORTHO 4012B. I have received report from SANDRA BOBO and had the opportunity to ask questions and assume patient care.
[2021-06-29 14:00] VITALS: BP 110/53
--- NOTE | 2021-06-29 14:22 | NUR ---
Reassessment: Pt PO much improved past 3 days ~100% avg most meals w/ one refusal of supper because ate earlier per RN note meeting estimated needs. Pt currently on 10L high flow salter w/ Ensure Enlive ONS pending MD verification in EMR though if current PO persists will no longer be necessary. LBM 06/23 receiving routine colace w/ PRN MoM and dulcolax available yet to be given. Noted pt prior mechanical soft/pudding thick liquids diet still active; RD d/w RN regarding cancelling prior diet as error in addition to additional routine bowel care given 6 days constipation if MD agreeable. Will continue to monitor for further PO trends and nutrition intervention needs this admit. Recommendations: 1) Continue mechanical soft/thin/carb controlled diet as medically indicated 2) Ensure Enlive TIDWM, pending physician approval in EMR. IF current PO persists ONS no longer indicated. 3) Routine bowel care; 6 days constipation 4) Scaled weight this admit; weekly scaled weights thereafter Addendum: 06/29/21 at [address] Amended: Links added.
[2021-06-29] MEDS: magnesium hydroxide 30ml (MOM) UD suspension PO PRN (16:57)
[2021-06-29 18:00] VITALS: BP 109/61
--- NOTE | 2021-06-29 18:20 | NUR ---
Problems reprioritized. Patient report given, questions answered & plan of care reviewed with SANDRA MONDRAGON.
[2021-06-29] MEDS: insulin glargine (Lantus) pen - multi-dose SQ SCH (19:59)
[2021-06-29 22:25] VITALS: BP 124/64
[2021-06-30] MEDS: meropenem inj 1 GM in normal saline 100ml IV soln 100 ML IV SCH ×3 (01:18→16:44)
[2021-06-30 02:00] VITALS: BP 138/62
[2021-06-30 06:00] VITALS: BP 142/65
--- NOTE | 2021-06-30 06:28 | NUR ---
Patient in room ORTHO 4012B. I have received report from SANDRA MONDRAGON and had the opportunity to ask questions and assume patient care.
--- NOTE | 2021-06-30 06:30 | NUR ---
Patient in room ORTHO 4012 B. I have received report from SANDRA Steel and had the opportunity to ask questions and assume patient care.
[2021-06-30] MEDS: FLUTICASONE IH SCH ×2 (07:54→08:00)
[2021-06-30] MEDS: ALBUTEROL INHALER 1 PUFF/90 MCG INHALER IH SCH ×3 (07:54→21:00)
[2021-06-30] MEDS: VILANTEROL IH SCH ×2 (07:54→08:00)
[2021-06-30] MEDS: guaiFENesin ER 600mg tablet PO SCH ×2 (08:00→20:21)
[2021-06-30] MEDS: K and/or MAG REPLACEMENT MC SCH ×2 (08:00→20:00)
[2021-06-30] MEDS: insulin Lispro (HumaLOG) vial - multi-dose SQ SCH ×3 (08:23→19:11)
[2021-06-30] MEDS: lactobacillus rhamnosus 10,000 MMU CELLS/CAPSULE PO SCH ×2 (08:27→20:21)
[2021-06-30] MEDS: docusate sod 100mg capsule PO SCH ×2 (08:27→20:21)
[2021-06-30] MEDS: amLODIPine 5mg tablet PO SCH (08:29)
[2021-06-30] MEDS: lisinopril 10 MG tablet PO SCH (08:29)
[2021-06-30] MEDS: atorvastatin 10mg tablet PO SCH (08:30)
[2021-06-30] MEDS: enoxaparin 40mg/0.4ml syringe SUBCUT SCH ×2 (08:31→20:22)
[2021-06-30] MEDS: dexamethasone inj 6 MG in dextrose 5%-water 100 ML IV SCH ×2 (08:33→20:21)
[2021-06-30 09:10] LABS: BASOPHILS % (AUTO) 0.3 % (0-1); EOSINOPHILS % (AUTO) 0 % (0-6); HEMATOCRIT 51.4 % (35.0-45.0); HEMOGLOBIN 16.2 g/dl (12.0-16.0); LYMPHOCYTES # (AUTO) 0.4 X10'3 (1.1-4.8); LYMPHOCYTES % (AUTO) 3.3 % (21-51); MEAN CORPUSCULAR HEMOGLOBIN 27.5 PG (27.0-31.0); MEAN CORPUSCULAR HGB CONC 31.5 g/dL (33.0-36.5); MEAN CORPUSCULAR VOLUME 87.3 FL (78-98); MEAN PLATELET VOLUME 10.7 FL (7.4-10.4); MONOCYTES % (AUTO) 8.4 % (2-12); NEUTROPHILS # (AUTO) 10.7 X10'3 (1.8-7.7); PLATELET COUNT 198 X10'3 (140-440); RED BLOOD COUNT 5.89 X10'6 (4.20-5.60); RED CELL DISTRIBUTION WIDTH 15.3 % (11.5-14.5); WHITE BLOOD COUNT 12.2 X10'3 (4.5-11.0)
[2021-06-30 09:16] LABS: D-DIMER 0.53 MG/L FEU (0-0.50)
--- NOTE | 2021-06-30 09:57 | NUR ---
Page Accepted Message: DANUTA 0476-RE: JAZ TIWARI [id number]...PT HAS NOT HAD A BM SINCE 06/23, COLACE GIVEN, MOM GIVEN...CAN I GET AN ORDER FOR AN ENEMA? Transaction number: [id number]
[2021-06-30 10:00] VITALS: BP 145/65
[2021-06-30] MEDS ORDERED: mineral oil 133ml enema RC PRN ×2 (10:35→17:30)
[2021-06-30] MEDS: polyethylene glycol 3350 17gm powd pack PO SCH (10:35)
[2021-06-30 11:20] LABS: ALANINE AMINOTRANSFERASE 33 U/L (12-78); ALBUMIN 2.7 G/DL (3.4-5.0); ALBUMIN/GLOBULIN RATIO 0.8 (1.1-1.5); ALKALINE PHOSPHATASE 87 IU/L (46-116); ANION GAP 7 (8-16); ASPARTATE AMINO TRANSFERASE 18 U/L (10-37); BILIRUBIN,TOTAL 0.4 MG/DL (0.1-1.0); BLOOD UREA NITROGEN 30 MG/DL (7-18); BUN/CREATININE RATIO 43.5 (6.6-38.0); C-REACTIVE PROTEIN 0.11 MG/DL (0.0-0.5); CALCIUM 8.8 MG/DL (8.5-10.1); CHLORIDE 103 MMOL/L (99-107); CREATININE 0.69 MG/DL (0.40-0.90); GLUCOSE 152 MG/DL (70-104); LACTATE DEHYDROGENASE 333 U/L (81-234); MAGNESIUM 2.6 MG/DL (1.5-2.4); PHOSPHORUS 3.8 MG/DL (2.3-4.5); POTASSIUM 4.9 MMOL/L (3.5-5.1); SODIUM 147 MMOL/L (135-145); TOTAL CARBON DIOXIDE 36.7 MMOL/L (24-32); TOTAL PROTEIN 6.2 G/DL (6.4-8.2); eGFR 83 ML/MIN
[2021-06-30 14:00] VITALS: BP 117/69
--- NOTE | 2021-06-30 16:28 | NUR ---
OIL ENEMA GIVEN, NO BM... ADVISED
--- NOTE | 2021-06-30 17:12 | NUR ---
Page Accepted Message: DANUTA 5199-RE: JAZ TIWARI [id number]...OIL ENEMA GIVEN AT 1500, NO BM YET Transaction number: [id number]
--- NOTE | 2021-06-30 17:37 | NUR ---
PLACED PHONE CALL TO WOUND CARE REQUESTING MD LORI AWARE
--- NOTE | 2021-06-30 17:38 | NUR ---
BS 74, PT A & O X 4, NO SYMPTOMS OF HYPOGLYCEMIA, DINNER TRAY PROVIDED...ADVISED PT TO EAT MEAL TO BRING BS UP...WILL CONTINUE TO MONITOR
[2021-06-30 18:00] VITALS: BP 103/64
--- NOTE | 2021-06-30 18:28 | NUR ---
Problems reprioritized. Patient report given, questions answered & plan of care reviewed with SANDRA LUNA.
--- NOTE | 2021-06-30 18:34 | NUR ---
Patient in room ORTHO 4012. I have received report from DANUTA FLORES and had the opportunity to ask questions and assume patient care.
[2021-06-30] MEDS: guaiFENesin/DM 10ml UD oral syrup PO PRN (20:51)
[2021-06-30] MEDS: insulin glargine (Lantus) pen - multi-dose SQ SCH (20:59)
[2021-06-30 22:00] VITALS: BP 119/67
[2021-07-01] MEDS: meropenem inj 1 GM in normal saline 100ml IV soln 100 ML IV SCH ×4 (01:40→23:42)
[2021-07-01 02:00] VITALS: BP 114/69
[2021-07-01 06:00] VITALS: BP 117/76
--- NOTE | 2021-07-01 06:58 | NUR ---
Problems reprioritized. Patient report given, questions answered & plan of care reviewed with SHIREEN.
--- NOTE | 2021-07-01 06:59 | NUR ---
Patient in room ORTHO 4012B. I have received report from SANDRA LUNA and had the opportunity to ask questions and assume patient care.
[2021-07-01] MEDS: dexamethasone inj 6 MG in dextrose 5%-water 100 ML IV SCH ×2 (07:32→21:14)
[2021-07-01] MEDS: VILANTEROL IH SCH ×2 (07:38→22:19)
[2021-07-01] MEDS: FLUTICASONE IH SCH ×2 (07:38→22:19)
[2021-07-01] MEDS: docusate sod 100mg capsule PO SCH ×2 (07:38→19:08)
[2021-07-01] MEDS: atorvastatin 10mg tablet PO SCH (07:39)
[2021-07-01] MEDS: lactobacillus rhamnosus 10,000 MMU CELLS/CAPSULE PO SCH ×2 (07:39→19:08)
[2021-07-01] MEDS: lisinopril 10 MG tablet PO SCH (07:41)
[2021-07-01] MEDS: enoxaparin 40mg/0.4ml syringe SUBCUT SCH ×2 (07:42→19:09)
[2021-07-01] MEDS: amLODIPine 5mg tablet PO SCH (07:42)
[2021-07-01] MEDS: guaiFENesin/DM 10ml UD oral syrup PO PRN (07:44)
[2021-07-01 07:58] LABS: BASOPHILS % (AUTO) 0.1 % (0-1); EOSINOPHILS % (AUTO) 0.1 % (0-6); HEMOGLOBIN 16.4 g/dl (12.0-16.0); LYMPHOCYTES # (AUTO) 0.6 X10'3 (1.1-4.8); LYMPHOCYTES % (AUTO) 4.6 % (21-51); MEAN CORPUSCULAR HEMOGLOBIN 27.4 PG (27.0-31.0); MEAN CORPUSCULAR HGB CONC 31.6 g/dL (33.0-36.5); MEAN CORPUSCULAR VOLUME 86.8 FL (78-98); MEAN PLATELET VOLUME 11.1 FL (7.4-10.4); MONOCYTES # (AUTO) 0.8 X10'3 (0-0.9); MONOCYTES % (AUTO) 6.9 % (2-12); NEUTROPHILS # (AUTO) 10.6 X10'3 (1.8-7.7); NEUTROPHILS % (AUTO) 88.3 % (42-75); PLATELET COUNT 163 X10'3 (140-440); RED BLOOD COUNT 5.99 X10'6 (4.20-5.60); RED CELL DISTRIBUTION WIDTH 15.4 % (11.5-14.5)
[2021-07-01] MEDS: K and/or MAG REPLACEMENT MC SCH ×2 (08:00→20:00)
--- NOTE | 2021-07-01 08:00 | NUR ---
PT REFUSING SOAP SUDS ENEMA, STATING SHE WANTS TO USE STEDY TO STAND SO SHE DOES NOT HAVE TO LAY ON HER SIDE. I ADVISED PT THAT I NEED TO CONTACT PHYSICAL THERAPY TO SEE IF THEY CAN EVALUATE PT TO SEE IF SHE CAN STAND.
[2021-07-01 08:50] LABS: D-DIMER 0.53 MG/L FEU (0-0.50)
[2021-07-01 08:57] LABS: ALANINE AMINOTRANSFERASE 35 U/L (12-78); ALBUMIN 2.6 G/DL (3.4-5.0); ALBUMIN/GLOBULIN RATIO 0.8 (1.1-1.5); ALKALINE PHOSPHATASE 84 IU/L (46-116); ANION GAP 5 (8-16); ASPARTATE AMINO TRANSFERASE 20 U/L (10-37); BILIRUBIN,TOTAL 0.5 MG/DL (0.1-1.0); BLOOD UREA NITROGEN 30 MG/DL (7-18); BUN/CREATININE RATIO 47.6 (6.6-38.0); CALCIUM 8.8 MG/DL (8.5-10.1); CHLORIDE 102 MMOL/L (99-107); CREATININE 0.63 MG/DL (0.40-0.90); GLUCOSE 160 MG/DL (70-104); LACTATE DEHYDROGENASE 271 U/L (81-234); MAGNESIUM 2.9 MG/DL (1.5-2.4); PHOSPHORUS 3.9 MG/DL (2.3-4.5); SODIUM 142 MMOL/L (135-145); TOTAL CARBON DIOXIDE 35.4 MMOL/L (24-32); TOTAL PROTEIN 5.9 G/DL (6.4-8.2); eGFR > 90 ML/MIN
[2021-07-01 08:59] LABS: C-REACTIVE PROTEIN < 0.05 MG/DL (0.0-0.5)
[2021-07-01] MEDS: ALBUTEROL INHALER 1 PUFF/90 MCG INHALER IH SCH ×3 (09:00→22:20)
[2021-07-01 10:00] VITALS: BP 145/86
[2021-07-01 10:21] LABS: ANISOCYTOSIS 1+; PLATELET ESTIMATE NORMAL; TOTAL CELLS COUNTED 100
[2021-07-01] MEDS: insulin Lispro (HumaLOG) vial - multi-dose SQ SCH ×3 (10:38→19:08)
[2021-07-01] MEDS: guaiFENesin ER 600mg tablet PO SCH ×2 (10:39→19:08)
--- NOTE | 2021-07-01 11:00 | NUR ---
morning albuterol mdi triaged. RT assisting with intubation
--- NOTE | 2021-07-01 12:26 | NUR ---
Page Accepted Message: DANUTA 5199-RE: JAZ TIWARI [id number]...PT REFUSING TO LAY ON SIDE FOR SOAP REYNA ENEMA
[2021-07-01 14:00] VITALS: BP 122/69
[2021-07-01 18:00] VITALS: BP 107/62
--- NOTE | 2021-07-01 18:45 | NUR ---
Problems reprioritized. Patient report given, questions answered & plan of care reviewed with SANDRA LUNA.
--- NOTE | 2021-07-01 18:58 | NUR ---
Patient in room ORTHO 4012. I have received report from DANUTA FLORES and had the opportunity to ask questions and assume patient care.
[2021-07-01] MEDS: polyethylene glycol 3350 17gm powd pack PO SCH (21:14)
[2021-07-01] MEDS: insulin glargine (Lantus) pen - multi-dose SQ SCH (21:31)
[2021-07-01 22:00] VITALS: BP 167/87
[2021-07-02 02:00] VITALS: BP 116/72
[2021-07-02 06:00] VITALS: BP 124/76
--- NOTE | 2021-07-02 06:45 | NUR ---
Problems reprioritized. Patient report given, questions answered & plan of care reviewed with LANI FLORES.
--- NOTE | 2021-07-02 07:18 | NUR ---
Patient encouraged to use her incentive spirometer to exercise her lungs and to help with mobilizing secretions, patient refused to do it. She said she did not need it and that she could just suction her mouth with a yanker. Patient was asking me to give her "very hot water" to dip the yanker with to use when suctioning her mouth. I replied to her saying " But that's going to burn your throat!" She states "Oh it doesn't affect me!" I discussed this with my charge nurse Ashley and I told her I do not feel comfortable giving patient very hot water to use for suctioning her mouth. I would give patient warm water instead.
[2021-07-02] MEDS: ALBUTEROL INHALER 1 PUFF/90 MCG INHALER IH SCH ×3 (07:34→21:19)
[2021-07-02] MEDS: lisinopril 10 MG tablet PO SCH (08:00)
[2021-07-02] MEDS: K and/or MAG REPLACEMENT MC SCH ×2 (08:00→20:00)
[2021-07-02] MEDS: amLODIPine 5mg tablet PO SCH (08:00)
[2021-07-02] MEDS: guaiFENesin ER 600mg tablet PO SCH ×2 (08:00→19:10)
[2021-07-02] MEDS: atorvastatin 10mg tablet PO SCH (08:00)
--- NOTE | 2021-07-02 08:25 | NUR ---
Reassessment: Pt PO has declined some, avg intake 64% x 8 meals which meets approximately 76% of est energy needs and 84% of est protein needs. Pt currently on 10L high flow salter w/ Ensure Enlive ONS pending MD verification in EMR though if current PO persists or improves, will no longer be necessary. LBM 06/23 receiving routine colace and MoM w/ PRN mineral oil enema on 06/30 and pt refused soap uli enema. Will continue to monitor for further PO trends and nutrition intervention needs this admit. Recommendations: 1) Continue mechanical soft/thin/carb controlled diet as medically indicated, consider liberalizing to Regular 2) Ensure Enlive TIDWM, pending physician approval in EMR. IF current PO persists ONS no longer indicated. 3) Routine bowel care; 9 days constipation 4) Scaled weight this admit; weekly scaled weights thereafter Addendum: 07/02/21 at [address] Amended: Links added.
[2021-07-02 08:33] LABS: BASOPHILS % (AUTO) 0.2 % (0-1); EOSINOPHILS % (AUTO) 0.1 % (0-6); HEMATOCRIT 50.1 % (35.0-45.0); HEMOGLOBIN 16.1 g/dl (12.0-16.0); LYMPHOCYTES # (AUTO) 0.4 X10'3 (1.1-4.8); LYMPHOCYTES % (AUTO) 3.5 % (21-51); MEAN CORPUSCULAR HEMOGLOBIN 27.5 PG (27.0-31.0); MEAN PLATELET VOLUME 11.2 FL (7.4-10.4); MONOCYTES # (AUTO) 0.8 X10'3 (0-0.9); MONOCYTES % (AUTO) 7.2 % (2-12); NEUTROPHILS # (AUTO) 9.5 X10'3 (1.8-7.7); PLATELET COUNT 140 X10'3 (140-440); RED BLOOD COUNT 5.83 X10'6 (4.20-5.60); RED CELL DISTRIBUTION WIDTH 15.3 % (11.5-14.5); WHITE BLOOD COUNT 10.6 X10'3 (4.5-11.0)
[2021-07-02 08:43] LABS: ALANINE AMINOTRANSFERASE 35 U/L (12-78); ALBUMIN 2.4 G/DL (3.4-5.0); ALBUMIN/GLOBULIN RATIO 0.6 (1.1-1.5); ALKALINE PHOSPHATASE 75 IU/L (46-116); ANION GAP 1 (8-16); ASPARTATE AMINO TRANSFERASE 16 U/L (10-37); BILIRUBIN,TOTAL 0.5 MG/DL (0.1-1.0); BLOOD UREA NITROGEN 31 MG/DL (7-18); BUN/CREATININE RATIO 51.7 (6.6-38.0); CALCIUM 8.6 MG/DL (8.5-10.1); CHLORIDE 106 MMOL/L (99-107); GLUCOSE 165 MG/DL (70-104); LACTATE DEHYDROGENASE 231 U/L (81-234); MAGNESIUM 2.7 MG/DL (1.5-2.4); PHOSPHORUS 4.1 MG/DL (2.3-4.5); POTASSIUM 4.7 MMOL/L (3.5-5.1); SODIUM 144 MMOL/L (135-145); TOTAL CARBON DIOXIDE 36.6 MMOL/L (24-32); TOTAL PROTEIN 6.1 G/DL (6.4-8.2); eGFR > 90 ML/MIN
[2021-07-02 08:45] LABS: C-REACTIVE PROTEIN < 0.05 MG/DL (0.0-0.5)
[2021-07-02] MEDS: lactobacillus rhamnosus 10,000 MMU CELLS/CAPSULE PO SCH ×2 (08:59→19:10)
[2021-07-02] MEDS: enoxaparin 40mg/0.4ml syringe SUBCUT SCH ×2 (08:59→19:11)
[2021-07-02] MEDS: docusate sod 100mg capsule PO SCH ×2 (08:59→19:10)
[2021-07-02] MEDS: dexamethasone inj 6 MG in dextrose 5%-water 100 ML IV SCH ×2 (09:00→19:11)
[2021-07-02] MEDS: meropenem inj 1 GM in normal saline 100ml IV soln 100 ML IV SCH ×2 (09:00→16:22)
[2021-07-02] MEDS: magnesium hydroxide 30ml (MOM) UD suspension PO PRN (09:11)
--- NOTE | 2021-07-02 09:22 | NUR ---
Patient refused most of her scheduled morning oral medications except Colace and Lactobacillus. Patient refused mineral oil enema for constipation but agreed to take milk of magnesia.
[2021-07-02 09:51] LABS: D-DIMER 0.72 MG/L FEU (0-0.50)
--- NOTE | 2021-07-02 12:53 | NUR ---
Patient refused enema and Dulcolax suppository for constipation despite explaining to her the benefits in making her have bowel movement.
[2021-07-02 13:40] LABS: TOTAL CELLS COUNTED 100
[2021-07-02 13:42] LABS: PLATELET ESTIMATE NORMAL; STOMATOCYTES 1+; TEAR DROP CELLS FEW; TOXIC VACUOLATION FEW
--- NOTE | 2021-07-02 13:45 | NUR ---
Patient requested to be turn on her side so she could get the stool out. She stated that she felt it was there just couldn't get out. [employer] and myself turned her to the right side, I could see the stool already out but she needed to be turn to the left so that we could clean her and get the stool out of her rectum. Patient refused to be turn to her left so she could be clean up. I kept telling her that we need to turn her to the left so we can clean her up and so that the stool don't stick on her skin for a long time and cause skin breakdown. Patient still did not want to be turn to the left so patient at the moment still has stool on her rectum. When I asked her why she did not want to be turn om her left side, she said it's harder to breathe. We told her we would clean her up as quickly as we can once she is turned on left side. Patient still not letting her turn on left side to be clean up. Patient was very weak and has no strength to lift her buttock up. Instructed patient to call when she is ready for us to clean her up.
[2021-07-02 15:00] VITALS: BP 142/67
--- NOTE | 2021-07-02 15:09 | NUR ---
Patient finally let us turn her on her left side to clean her up. Charge nurse Ashley, myself, JIGNESH Mcclure, and Rocio FLORES were at bedside to reposition and clean her up. Pericare done, when turned her her buttocks were reddened with 2 small openings. Patient was having difficulty breathing before and during the turning her. Her O2 sat went down to 80% on 15 lpm/high flow cannula so put her on non rebreather mask at 15 lpm. Patient refused to have wound picture done at this time. Patient was taking off her NRB mask and her O2 sat kept dropping to low 80%, we explained to patient that she needed to keep it on for now so she won't end up being in a BIPAP machine. Patient placed the NRB mask and her O2 sat started to go up to 88%. Patient placed on high Baptiste position immediately after being layed flat on bed so we can turn her properly to clean her up.
[2021-07-02 18:00] VITALS: BP 112/75
[2021-07-02] MEDS: insulin Lispro (HumaLOG) vial - multi-dose SQ SCH (19:09)
[2021-07-02] MEDS: polyethylene glycol 3350 17gm powd pack PO SCH (21:00)
[2021-07-02] MEDS: insulin glargine (Lantus) pen - multi-dose SQ SCH (21:00)
[2021-07-02 22:00] VITALS: BP 99/65
[2021-07-03 02:00] VITALS: BP 119/74
[2021-07-03 06:00] VITALS: BP 128/71
--- NOTE | 2021-07-03 06:45 | NUR ---
Patient in room ORTHO 4012B. I have received report from SANDRA LUNA and had the opportunity to ask questions and assume patient care.
[2021-07-03 07:55] LABS: D-DIMER 0.91 MG/L FEU (0-0.50)
[2021-07-03] MEDS: K and/or MAG REPLACEMENT MC SCH ×2 (08:00→20:00)
[2021-07-03] MEDS: FLUTICASONE IH SCH (08:00)
[2021-07-03] MEDS: VILANTEROL IH SCH (08:00)
[2021-07-03 08:01] LABS: BASOPHILS % (AUTO) 0.2 % (0-1); EOSINOPHILS % (AUTO) 0 % (0-6); HEMOGLOBIN 15.9 g/dl (12.0-16.0); LYMPHOCYTES # (AUTO) 0.5 X10'3 (1.1-4.8); LYMPHOCYTES % (AUTO) 4.5 % (21-51); MEAN CORPUSCULAR HEMOGLOBIN 27.2 PG (27.0-31.0); MEAN CORPUSCULAR HGB CONC 31.7 g/dL (33.0-36.5); MEAN PLATELET VOLUME 11.8 FL (7.4-10.4); MONOCYTES # (AUTO) 1.1 X10'3 (0-0.9); MONOCYTES % (AUTO) 9.5 % (2-12); NEUTROPHILS # (AUTO) 9.7 X10'3 (1.8-7.7); NEUTROPHILS % (AUTO) 85.8 % (42-75); PLATELET COUNT 130 X10'3 (140-440); RED BLOOD COUNT 5.82 X10'6 (4.20-5.60); RED CELL DISTRIBUTION WIDTH 15.7 % (11.5-14.5); WHITE BLOOD COUNT 11.3 X10'3 (4.5-11.0)
[2021-07-03 08:25] LABS: ALANINE AMINOTRANSFERASE 47 U/L (12-78); ALBUMIN 2.5 G/DL (3.4-5.0); ALBUMIN/GLOBULIN RATIO 0.8 (1.1-1.5); ALKALINE PHOSPHATASE 79 IU/L (46-116); ANION GAP 3 (8-16); ASPARTATE AMINO TRANSFERASE 22 U/L (10-37); BILIRUBIN,TOTAL 0.6 MG/DL (0.1-1.0); BLOOD UREA NITROGEN 27 MG/DL (7-18); BUN/CREATININE RATIO 52.9 (6.6-38.0); C-REACTIVE PROTEIN 0.08 MG/DL (0.0-0.5); CALCIUM 8.7 MG/DL (8.5-10.1); CHLORIDE 105 MMOL/L (99-107); CREATININE 0.51 MG/DL (0.40-0.90); GLUCOSE 134 MG/DL (70-104); LACTATE DEHYDROGENASE 283 U/L (81-234); MAGNESIUM 2.7 MG/DL (1.5-2.4); PHOSPHORUS 4.2 MG/DL (2.3-4.5); SODIUM 146 MMOL/L (135-145); TOTAL CARBON DIOXIDE 38.2 MMOL/L (24-32); TOTAL PROTEIN 5.7 G/DL (6.4-8.2); eGFR > 90 ML/MIN
[2021-07-03] MEDS: ALBUTEROL INHALER 1 PUFF/90 MCG INHALER IH SCH ×3 (08:28→20:44)
[2021-07-03 09:01] LABS: PLATELET ESTIMATE DECREASED; STOMATOCYTES 1+; TOTAL CELLS COUNTED 100
[2021-07-03 10:00] VITALS: BP 113/80
[2021-07-03] MEDS: dexamethasone inj 6 MG in dextrose 5%-water 100 ML IV SCH ×2 (11:28→20:56)
[2021-07-03] MEDS: docusate sod 100mg capsule PO SCH (11:31)
[2021-07-03] MEDS: amLODIPine 5mg tablet PO SCH (11:32)
[2021-07-03] MEDS: lactobacillus rhamnosus 10,000 MMU CELLS/CAPSULE PO SCH ×2 (11:32→20:57)
[2021-07-03] MEDS: guaiFENesin ER 600mg tablet PO SCH ×2 (11:34→20:00)
[2021-07-03] MEDS: lisinopril 10 MG tablet PO SCH (11:35)
[2021-07-03] MEDS: atorvastatin 10mg tablet PO SCH (11:36)
[2021-07-03] MEDS: enoxaparin 40mg/0.4ml syringe SUBCUT SCH ×2 (11:37→21:06)
[2021-07-03] MEDS: guaiFENesin/DM 10ml UD oral syrup PO PRN ×2 (11:40→21:09)
[2021-07-03] MEDS: insulin Lispro (HumaLOG) vial - multi-dose SQ SCH ×2 (14:15→18:54)
[2021-07-03] MEDS: acetaminophen 325mg tablet PO PRN (16:29)
[2021-07-03 18:00] VITALS: BP 129/69
--- NOTE | 2021-07-03 18:36 | NUR ---
Problems reprioritized. Patient report given, questions answered & plan of care reviewed with SANDRA FIGUEROA.
[2021-07-03] MEDS ORDERED: docusate sod 250mg capsule PO SCH (20:00)
[2021-07-03] MEDS: sennosides 8.6mg tablet PO SCH (20:57)
[2021-07-03] MEDS: polyethylene glycol 3350 17gm powd pack PO SCH (21:00)
[2021-07-03 22:00] VITALS: BP 114/66
[2021-07-03] MEDS: insulin glargine (Lantus) pen - multi-dose SQ SCH (22:33)
[2021-07-03] MEDS: docusate sodium 100mg/10ml UD cup PO SCH (23:00)
[2021-07-04 02:00] VITALS: BP 115/74
[2021-07-04] MEDS: guaiFENesin/DM 10ml UD oral syrup PO PRN ×2 (04:28→09:52)
[2021-07-04 06:00] VITALS: BP 145/89
[2021-07-04] MEDS: FLUTICASONE IH SCH (08:00)
[2021-07-04] MEDS: K and/or MAG REPLACEMENT MC SCH ×2 (08:00→19:13)
[2021-07-04] MEDS: VILANTEROL IH SCH (08:00)
[2021-07-04 08:10] LABS: BASOPHILS % (AUTO) 0.3 % (0-1); EOSINOPHILS % (AUTO) 0 % (0-6); HEMATOCRIT 50.6 % (35.0-45.0); HEMOGLOBIN 16.2 g/dl (12.0-16.0); LYMPHOCYTES # (AUTO) 0.3 X10'3 (1.1-4.8); MEAN CORPUSCULAR HEMOGLOBIN 27.4 PG (27.0-31.0); MEAN CORPUSCULAR HGB CONC 31.9 g/dL (33.0-36.5); MEAN CORPUSCULAR VOLUME 85.9 FL (78-98); MEAN PLATELET VOLUME 11.6 FL (7.4-10.4); MONOCYTES # (AUTO) 0.9 X10'3 (0-0.9); MONOCYTES % (AUTO) 8.9 % (2-12); NEUTROPHILS # (AUTO) 8.8 X10'3 (1.8-7.7); NEUTROPHILS % (AUTO) 87.8 % (42-75); PLATELET COUNT 101 X10'3 (140-440); RED BLOOD COUNT 5.89 X10'6 (4.20-5.60); RED CELL DISTRIBUTION WIDTH 15.4 % (11.5-14.5); WHITE BLOOD COUNT 10.1 X10'3 (4.5-11.0)
[2021-07-04] MEDS: ALBUTEROL INHALER 1 PUFF/90 MCG INHALER IH SCH ×2 (08:19→21:04)
[2021-07-04 08:31] LABS: ALANINE AMINOTRANSFERASE 58 U/L (12-78); ALBUMIN 2.5 G/DL (3.4-5.0); ALBUMIN/GLOBULIN RATIO 0.8 (1.1-1.5); ALKALINE PHOSPHATASE 76 IU/L (46-116); ANION GAP 4 (8-16); ASPARTATE AMINO TRANSFERASE 21 U/L (10-37); BILIRUBIN,TOTAL 0.6 MG/DL (0.1-1.0); BLOOD UREA NITROGEN 31 MG/DL (7-18); BUN/CREATININE RATIO 73.8 (6.6-38.0); C-REACTIVE PROTEIN 0.07 MG/DL (0.0-0.5); CALCIUM 8.4 MG/DL (8.5-10.1); CHLORIDE 106 MMOL/L (99-107); CREATININE 0.42 MG/DL (0.40-0.90); GLUCOSE 135 MG/DL (70-104); LACTATE DEHYDROGENASE 278 U/L (81-234); MAGNESIUM 2.7 MG/DL (1.5-2.4); PHOSPHORUS 4.4 MG/DL (2.3-4.5); POTASSIUM 4.9 MMOL/L (3.5-5.1); SODIUM 144 MMOL/L (135-145); TOTAL CARBON DIOXIDE 34.5 MMOL/L (24-32); TOTAL PROTEIN 5.8 G/DL (6.4-8.2); eGFR > 90 ML/MIN
[2021-07-04 09:12] LABS: D-DIMER 0.46 MG/L FEU (0-0.50)
[2021-07-04] MEDS: insulin Lispro (HumaLOG) vial - multi-dose SQ SCH ×2 (09:34→15:17)
[2021-07-04] MEDS: dexamethasone inj 6 MG in dextrose 5%-water 100 ML IV SCH ×2 (09:43→21:14)
[2021-07-04 09:45] LABS: LARGE PLATELETS FEW; PLATELET ESTIMATE DECREASED
[2021-07-04] MEDS: docusate sodium 100mg/10ml UD cup PO SCH ×3 (09:47→21:17)
[2021-07-04] MEDS: lisinopril 10 MG tablet PO SCH (09:48)
[2021-07-04] MEDS: lactobacillus rhamnosus 10,000 MMU CELLS/CAPSULE PO SCH ×3 (09:49→21:16)
[2021-07-04] MEDS: amLODIPine 5mg tablet PO SCH (09:49)
[2021-07-04] MEDS: sennosides 8.6mg tablet PO SCH ×3 (09:50→21:16)
[2021-07-04] MEDS: atorvastatin 10mg tablet PO SCH (09:50)
[2021-07-04] MEDS: guaiFENesin ER 600mg tablet PO SCH ×3 (09:50→21:17)
[2021-07-04] MEDS: enoxaparin 40mg/0.4ml syringe SUBCUT SCH ×2 (09:51→21:16)
[2021-07-04 10:00] VITALS: BP 130/84
[2021-07-04 14:00] VITALS: BP 161/73
[2021-07-04 18:00] VITALS: BP 103/69
--- NOTE | 2021-07-04 18:32 | NUR ---
Patient AAOX4 states that she would not want to be inbated because she can't be in control once the tube is down her throat but patient does not any problem with CPR. Patient states she will speak the doctor tomorrow when he comes to visit. Will inform day shift during report.
--- NOTE | 2021-07-04 18:42 | NUR ---
Page Sent PAGER ID: [phone] MESSAGE: DANUTA 5199-RE: JAZ TIWARI [id number]...PT EXPRESSED TO ME THAT SHE DOES NOT WANT TO BE INTUBATED, I TOLD HER I WOULD HAVE YOU TALK TO HER...THANK YOU
--- NOTE | 2021-07-04 18:43 | NUR ---
Problems reprioritized. Patient report given, questions answered & plan of care reviewed with SANDRA ROSS.
[2021-07-04] MEDS: polyethylene glycol 3350 17gm powd pack PO SCH ×2 (21:00→21:15)
[2021-07-04] MEDS: furosemide 40mg/4ml inj IV SCH (21:14)
[2021-07-04] MEDS: insulin glargine (Lantus) pen - multi-dose SQ SCH (21:37)
[2021-07-04 22:00] VITALS: BP 119/80
[2021-07-05 02:00] VITALS: BP 134/75
[2021-07-05] MEDS: ALBUTEROL INHALER 1 PUFF/90 MCG INHALER IH SCH ×4 (04:04→21:00)
[2021-07-05 06:00] VITALS: BP 141/174
--- NOTE | 2021-07-05 06:51 | NUR ---
Problems reprioritized. Patient report given, questions answered & plan of care reviewed with SANDRA Ye.
[2021-07-05] MEDS: FLUTICASONE IH SCH (08:00)
[2021-07-05] MEDS: dexamethasone inj 6 MG in dextrose 5%-water 100 ML IV SCH ×3 (08:00→21:50)
[2021-07-05] MEDS: K and/or MAG REPLACEMENT MC SCH ×2 (08:00→20:00)
[2021-07-05] MEDS: VILANTEROL IH SCH (08:00)
[2021-07-05] MEDS: guaiFENesin ER 600mg tablet PO SCH ×2 (08:00→21:42)
[2021-07-05] MEDS: docusate sodium 100mg/10ml UD cup PO SCH ×2 (08:36→21:52)
[2021-07-05] MEDS: furosemide 40mg/4ml inj IV SCH (08:36)
[2021-07-05] MEDS: lactobacillus rhamnosus 10,000 MMU CELLS/CAPSULE PO SCH ×2 (08:36→21:50)
[2021-07-05] MEDS: sennosides 8.6mg tablet PO SCH ×2 (08:37→21:42)
[2021-07-05] MEDS: atorvastatin 10mg tablet PO SCH (08:37)
[2021-07-05] MEDS: amLODIPine 5mg tablet PO SCH (08:37)
[2021-07-05] MEDS: lisinopril 10 MG tablet PO SCH (08:38)
[2021-07-05] MEDS: enoxaparin 40mg/0.4ml syringe SUBCUT SCH ×2 (08:38→21:50)
[2021-07-05 10:00] VITALS: BP 123/75
[2021-07-05] MEDS: LORazepam 0.5 MG tablet PO PRN (11:41)
--- NOTE | 2021-07-05 12:11 | NUR ---
PAGER ID: [phone] MESSAGE: [id number]. Patients toes BLE cold/cyanotic. She would like to discuss code status with you. Cassi FLORES [id number]
[2021-07-05] MEDS: lactose-reduced food (Ensure Enlive) - 237ml bottle PO SCH ×2 (13:19→18:40)
--- NOTE | 2021-07-05 13:34 | NUR ---
PAGER ID: [phone] MESSAGE: [phone]. Patient would like you to call daughter. [phone] Cassi FLORES [id number]
[2021-07-05] MEDS: insulin Lispro (HumaLOG) vial - multi-dose SQ SCH (14:09)
[2021-07-05 14:12] LABS: BASOPHILS # (AUTO) 0.1 X10'3 (0-0.2); EOSINOPHILS % (AUTO) 0.1 % (0-6); LYMPHOCYTES # (AUTO) 0.7 X10'3 (1.1-4.8); MONOCYTES # (AUTO) 1.4 X10'3 (0-0.9)
[2021-07-05 14:13] LABS: BASOPHILS % (AUTO) 0.9 % (0-1); MEAN PLATELET VOLUME 11.9 FL (7.4-10.4); MONOCYTES % (AUTO) 9.8 % (2-12); NEUTROPHILS % (AUTO) 84.2 % (42-75); WHITE BLOOD COUNT 14.2 X10'3 (4.5-11.0)
[2021-07-05 14:22] LABS: ALBUMIN 2.9 G/DL (3.4-5.0); ANION GAP 2 (8-16); BLOOD UREA NITROGEN 35 MG/DL (7-18); BUN/CREATININE RATIO 54.7 (6.6-38.0); C-REACTIVE PROTEIN 0.09 MG/DL (0.0-0.5); CALCIUM 9.3 MG/DL (8.5-10.1); CHLORIDE 102 MMOL/L (99-107); CREATININE 0.64 MG/DL (0.40-0.90); GLUCOSE 150 MG/DL (70-104); POTASSIUM 4.3 MMOL/L (3.5-5.1); SODIUM 144 MMOL/L (135-145); TOTAL CARBON DIOXIDE 39.6 MMOL/L (24-32); eGFR > 90 ML/MIN
[2021-07-05 14:28] LABS: D-DIMER 2.26 MG/L FEU (0-0.50)
--- NOTE | 2021-07-05 14:55 | NUR ---
F/u 07/05: Noted pt regressed from full liquids to clear liquids w/ Ensure Enlive TIDWM per diet order. LETY d/w RN who reports diet is at patient's request though no issues chewing/swallowing at this time w/ dentures. Dietary notified to send ONS on clears even though is full liquids supplement per diet order. Addendum: 07/05/21 at [address] Amended: Links added.
[2021-07-05 15:40] LABS: HEMATOCRIT 54.9 % (35.0-45.0); MEAN CORPUSCULAR HEMOGLOBIN 27.6 PG (27.0-31.0); MEAN CORPUSCULAR HGB CONC 32.9 g/dL (33.0-36.5); MEAN CORPUSCULAR VOLUME 83.9 FL (78-98); RED BLOOD COUNT 6.55 X10'6 (4.20-5.60); RED CELL DISTRIBUTION WIDTH 14.6 % (11.5-14.5)
[2021-07-05 15:43] LABS: HEMOGLOBIN 18.1 g/dl (12.0-16.0)
[2021-07-05 15:44] LABS: PLATELET COUNT 106 X10'3 (140-440)
[2021-07-05] MEDS: HYDROcodone/acetaminophen 10/325mg tab PO PRN (16:14)
--- NOTE | 2021-07-05 17:12 | NUR ---
PAGER ID: [phone] MESSAGE: [id number]. Cannot get murphy in patient, there seems to be an obstruction. Should we get urology on board? Cassi FLORES [phone]
--- NOTE | 2021-07-05 17:40 | NUR ---
Patient's murphy was removed with the intention of putting in a new one as old one leaked large amounts of urine. However, we were able to insert a new murphy, Dr. Thomas is aware and he will not be consulting urology as of now. Barrier cream was applied to sacral area, open skin with reddened/pink bed noted. Toes in BLE are noted to be more blue/cyanotic, Dr. Thomas notified, arterial doppler US ordered. Patient requests to take breaks during incontinence care.
[2021-07-05 18:00] VITALS: BP 95/62
--- NOTE | 2021-07-05 18:31 | NUR ---
Problems reprioritized. Patient report given, questions answered & plan of care reviewed with Irene FLORES.
[2021-07-05 19:48] LABS: TOTAL CELLS COUNTED 100
[2021-07-05 19:51] LABS: PLATELET ESTIMATE DECREASED
--- NOTE | 2021-07-05 20:30 | NUR ---
patient refuses to have a pillow behind a side. unable to assess when pt turning "I can't stay here i have to go back now" noted reddness and denuded skin as well when I was able to assess quickly. educated on skin breakdown and need for turning and positioning. "I don't care" was patient's reply. pt on air-hossein bed in 48 degree sitting position and will not decrease HOB or turn to her side.
[2021-07-05] MEDS: polyethylene glycol 3350 17gm powd pack PO SCH (21:00)
[2021-07-05 22:00] VITALS: BP 85/45
[2021-07-05] MEDS: insulin glargine (Lantus) pen - multi-dose SQ SCH (22:00)
--- NOTE | 2021-07-06 04:38 | NUR ---
patient has not voided yet. does not feel the urge. unable to get bladder scan due to pt habitus. will continue to monitor for void. pt is incont at home.
--- NOTE | 2021-07-06 05:28 | NUR ---
small incont void around wick. pt refused another f/c at this time. will continue to monitor. turned for dry flow change. up i bed.
[2021-07-06 06:00] VITALS: BP 114/51
[2021-07-06] MEDS: furosemide 40mg/4ml inj IV SCH (07:40)
[2021-07-06] MEDS: dexamethasone inj 6 MG in dextrose 5%-water 100 ML IV SCH ×2 (07:40→22:18)
[2021-07-06] MEDS: lactobacillus rhamnosus 10,000 MMU CELLS/CAPSULE PO SCH ×2 (07:41→22:20)
[2021-07-06] MEDS: atorvastatin 10mg tablet PO SCH (07:41)
[2021-07-06] MEDS: amLODIPine 5mg tablet PO SCH (07:41)
[2021-07-06] MEDS: lisinopril 10 MG tablet PO SCH (07:41)
[2021-07-06] MEDS: lactose-reduced food (Ensure Enlive) - 237ml bottle PO SCH ×3 (07:41→18:00)
[2021-07-06 07:59] LABS: BASOPHILS % (AUTO) 0.3 % (0-1); LYMPHOCYTES # (AUTO) 0.3 X10'3 (1.1-4.8); LYMPHOCYTES % (AUTO) 2.4 % (21-51); MONOCYTES # (AUTO) 0.8 X10'3 (0-0.9)
[2021-07-06] MEDS: FLUTICASONE IH SCH (08:00)
[2021-07-06] MEDS: docusate sodium 100mg/10ml UD cup PO SCH ×2 (08:00→20:00)
[2021-07-06] MEDS: guaiFENesin ER 600mg tablet PO SCH ×2 (08:00→22:01)
[2021-07-06] MEDS: VILANTEROL IH SCH (08:00)
[2021-07-06] MEDS: sennosides 8.6mg tablet PO SCH ×2 (08:00→20:00)
[2021-07-06] MEDS: enoxaparin 40mg/0.4ml syringe SUBCUT SCH (08:00)
[2021-07-06] MEDS: K and/or MAG REPLACEMENT MC SCH ×2 (08:00→20:00)
[2021-07-06 08:02] LABS: EOSINOPHILS % (AUTO) 0.1 % (0-6); MEAN PLATELET VOLUME 12.6 FL (7.4-10.4); MONOCYTES % (AUTO) 5.9 % (2-12); NEUTROPHILS # (AUTO) 12.6 X10'3 (1.8-7.7); NEUTROPHILS % (AUTO) 91.3 % (42-75); PLATELET COUNT 90 X10'3 (140-440)
[2021-07-06] MEDS: ALBUTEROL INHALER 1 PUFF/90 MCG INHALER IH SCH ×3 (08:15→19:44)
[2021-07-06 08:25] LABS: D-DIMER 0.91 MG/L FEU (0-0.50)
[2021-07-06 08:43] LABS: ALBUMIN 2.5 G/DL (3.4-5.0); ANION GAP 4 (8-16); BLOOD UREA NITROGEN 57 MG/DL (7-18); BUN/CREATININE RATIO 49.6 (6.6-38.0); C-REACTIVE PROTEIN 1.53 MG/DL (0.0-0.5); CHLORIDE 102 MMOL/L (99-107); CREATININE 1.15 MG/DL (0.40-0.90); GLUCOSE 147 MG/DL (70-104); POTASSIUM 5.3 MMOL/L (3.5-5.1); SODIUM 144 MMOL/L (135-145); TOTAL CARBON DIOXIDE 37.8 MMOL/L (24-32); eGFR 46 ML/MIN
[2021-07-06 08:53] LABS: HEMATOCRIT 52.8 % (35.0-45.0); HEMOGLOBIN 17.2 g/dl (12.0-16.0); MEAN CORPUSCULAR HEMOGLOBIN 27.6 PG (27.0-31.0); MEAN CORPUSCULAR VOLUME 84.9 FL (78-98); RED BLOOD COUNT 6.21 X10'6 (4.20-5.60); WHITE BLOOD COUNT 15.3 X10'3 (4.5-11.0)
[2021-07-06 08:54] LABS: MEAN CORPUSCULAR HGB CONC 32.5 g/dL (33.0-36.5)
[2021-07-06] MEDS: insulin Lispro (HumaLOG) vial - multi-dose SQ SCH ×3 (09:17→19:16)
[2021-07-06 10:00] VITALS: BP 105/67
[2021-07-06 11:42] LABS: ABG HCO3 36.3 mmol/L (22.0-26.0); ABG PCO2 (T) 70.6 mmHg (32.0-45.0); ABG PO2 (T) 67.3 mmHg (75.0-100.0); ALLEN'S TEST POSITIVE; FCOHb 0.3 % (0.0-3.9); FLOW 30 L/min; FMetHb 0.5 % (0.0-1.5); FO2Hb 91.3 % (94-97); TOTAL HEMOGLOBIN 17.1 G/dl (12.0-16.0)
--- NOTE | 2021-07-06 11:48 | NUR ---
PAGER ID: [phone] MESSAGE: [id number]. Patient ABG resulted, CO2 70.6 Cassi FLORES [id number]
--- NOTE | 2021-07-06 12:07 | NUR ---
PAGER ID: [phone] MESSAGE: [id number]. Patient refusing bipap. RT is asking for you to speak to her about her code status again. Cassi FLORES [id number]
[2021-07-06 14:00] VITALS: BP 115/49
--- NOTE | 2021-07-06 15:18 | NUR ---
f/u 07/06: Pt continues to only want liquids r/t respiratory status as they are easier to consumer per RN. Though pt has poor intake, mostly 25% of meals and ONS not meeting needs. D/w RN that if pt continues w/ poor intake on liquids, then she may benefit from TF to meet nutritional needs. Pt noted to also refuse BiPAP and is currently on 15L high flow oxygen. LBM 07/05 receiving routine bowel care, though sometimes refuses. Will continue to monitor. Recommendations: 1) Full liquids per pt preference 2) Ensure Enlive TIDWM 3) Routine bowel care; 4) Scaled weight this admit; weekly scaled weights thereafter 5) Initiation of nutrition support as PO remains inadequate Addendum: 07/06/21 at [address] Amended: Links added.
--- NOTE | 2021-07-06 16:26 | NUR ---
Patient refuses to be repositioned on side despite skin break down. She was repositioned for incontinence care twice. Incontinence care done, barrier cream applied to open skin in sacral area. Purewick in place, draining well. Diet has been modified multiple times to meet patient requests, however she continues to keep refusing multiple food items. Dr. Thomas requested patient be put on bipap based on ABG results, however patient refused despite education, Dr. Thomas paged/made aware.
[2021-07-06 18:00] VITALS: BP 101/60
--- NOTE | 2021-07-06 18:12 | NUR ---
Problems reprioritized. Patient report given, questions answered & plan of care reviewed with Irene FLORES.
[2021-07-06] MEDS: HYDROcodone/acetaminophen 5mg/325mg tablet PO PRN (19:19)
[2021-07-06] MEDS: polyethylene glycol 3350 17gm powd pack PO SCH (21:00)
[2021-07-06 22:00] VITALS: BP 96/51
[2021-07-06] MEDS: docusate sod 250mg capsule PO SCH (22:15)
[2021-07-06] MEDS: insulin glargine (Lantus) pen - multi-dose SQ SCH (22:19)
[2021-07-06] MEDS: guaiFENesin/DM 10ml UD oral syrup PO PRN (22:43)
[2021-07-07] MEDS: nystatin 500,000 unit/5ML UD oral suspension PO SCH ×4 (00:47→20:56)
[2021-07-07] MEDS: polyethylene glycol 3350 17gm powd pack PO SCH ×2 (00:48→19:29)
[2021-07-07] MEDS: acetaminophen 325mg tablet PO PRN ×2 (01:26→07:21)
[2021-07-07 06:00] VITALS: BP 94/52
--- NOTE | 2021-07-07 06:24 | NUR ---
reported to days. noted pt slept well.
[2021-07-07] MEDS: furosemide 40mg/4ml inj IV SCH (07:20)
[2021-07-07] MEDS: sennosides 8.6mg tablet PO SCH ×2 (07:20→19:29)
[2021-07-07] MEDS: lactobacillus rhamnosus 10,000 MMU CELLS/CAPSULE PO SCH ×2 (07:21→19:29)
[2021-07-07] MEDS: atorvastatin 10mg tablet PO SCH (07:21)
[2021-07-07] MEDS: amLODIPine 5mg tablet PO SCH (07:22)
[2021-07-07] MEDS: docusate sod 250mg capsule PO SCH (07:23)
[2021-07-07] MEDS: fondaparinux 2.5 MG/0.5 ML syringe SUBCUT SCH (07:23)
[2021-07-07] MEDS: dexamethasone inj 6 MG in dextrose 5%-water 100 ML IV SCH ×2 (07:23→19:29)
[2021-07-07] MEDS: lactose-reduced food (Ensure Enlive) - 237ml bottle PO SCH ×4 (07:24→18:00)
[2021-07-07] MEDS: guaiFENesin ER 600mg tablet PO SCH ×2 (07:24→19:29)
[2021-07-07] MEDS: ALBUTEROL INHALER 1 PUFF/90 MCG INHALER IH SCH ×3 (07:51→20:09)
[2021-07-07] MEDS: K and/or MAG REPLACEMENT MC SCH ×2 (08:00→20:00)
[2021-07-07] MEDS ORDERED: nystatin 500,000 unit/5ML UD oral suspension PO SCH (08:00)
[2021-07-07] MEDS: lisinopril 10 MG tablet PO SCH (08:00)
[2021-07-07] MEDS: VILANTEROL IH SCH (08:00)
[2021-07-07] MEDS: FLUTICASONE IH SCH (08:00)
[2021-07-07 08:15] LABS: BASOPHILS % (AUTO) 0.1 % (0-1); EOSINOPHILS % (AUTO) 0 % (0-6); PLATELET COUNT 86 X10'3 (140-440)
[2021-07-07 08:17] LABS: HEMATOCRIT 51.3 % (35.0-45.0); LYMPHOCYTES # (AUTO) 0.5 X10'3 (1.1-4.8); LYMPHOCYTES % (AUTO) 3.2 % (21-51); MEAN PLATELET VOLUME 12.3 FL (7.4-10.4); MONOCYTES # (AUTO) 0.8 X10'3 (0-0.9); MONOCYTES % (AUTO) 5.6 % (2-12); NEUTROPHILS # (AUTO) 13.6 X10'3 (1.8-7.7); NEUTROPHILS % (AUTO) 91.1 % (42-75); RED CELL DISTRIBUTION WIDTH 16.2 % (11.5-14.5); WHITE BLOOD COUNT 14.9 X10'3 (4.5-11.0)
[2021-07-07 08:33] LABS: ALBUMIN 2.5 G/DL (3.4-5.0); ANION GAP 4 (8-16); BLOOD UREA NITROGEN 75 MG/DL (7-18); BUN/CREATININE RATIO 72.8 (6.6-38.0); C-REACTIVE PROTEIN 1.08 MG/DL (0.0-0.5); CHLORIDE 100 MMOL/L (99-107); CREATININE 1.03 MG/DL (0.40-0.90); GLUCOSE 154 MG/DL (70-104); POTASSIUM 5.4 MMOL/L (3.5-5.1); SODIUM 143 MMOL/L (135-145); TOTAL CARBON DIOXIDE 38.9 MMOL/L (24-32); eGFR 53 ML/MIN
[2021-07-07 08:56] LABS: HEMOGLOBIN 16.8 g/dl (12.0-16.0); MEAN CORPUSCULAR HEMOGLOBIN 27.8 PG (27.0-31.0); MEAN CORPUSCULAR HGB CONC 32.8 g/dL (33.0-36.5); MEAN CORPUSCULAR VOLUME 84.9 FL (78-98); RED BLOOD COUNT 6.04 X10'6 (4.20-5.60)
[2021-07-07 09:04] LABS: D-DIMER 2.81 MG/L FEU (0-0.50)
[2021-07-07] MEDS: insulin Lispro (HumaLOG) vial - multi-dose SQ SCH ×3 (09:23→19:07)
[2021-07-07 10:00] VITALS: BP 99/53
[2021-07-07 11:58] LABS: LARGE PLATELETS FEW; PLATELET ESTIMATE DECREASED
[2021-07-07] MEDS ORDERED: mineral oil 133ml enema RC PRN (13:30)
[2021-07-07] MEDS: HYDROcodone/acetaminophen 5mg/325mg tablet PO PRN (13:46)
[2021-07-07 14:00] VITALS: BP 87/30
[2021-07-07 18:00] VITALS: BP 98/59
--- NOTE | 2021-07-07 18:34 | NUR ---
Problems reprioritized. Patient report given, questions answered & plan of care reviewed with Maria L FLORES.
[2021-07-07] MEDS: insulin glargine (Lantus) pen - multi-dose SQ SCH (20:54)
[2021-07-07] MEDS: LORazepam 0.5 MG tablet PO PRN (20:54)
[2021-07-07] MEDS: temazepam 15mg capsule PO PRN (20:54)
[2021-07-07] MEDS: HYDROcodone/acetaminophen 10/325mg tab PO PRN (21:03)
[2021-07-07 22:00] VITALS: BP 92/59
[2021-07-08] MEDS: HYDROcodone/acetaminophen 10/325mg tab PO PRN ×3 (00:07→23:57)
[2021-07-08 02:00] VITALS: BP 109/58
[2021-07-08 06:00] VITALS: BP 110/68
[2021-07-08] MEDS: lactobacillus rhamnosus 10,000 MMU CELLS/CAPSULE PO SCH ×3 (08:00→19:23)
[2021-07-08] MEDS: lactose-reduced food (Ensure Enlive) - 237ml bottle PO SCH ×6 (08:00→18:00)
[2021-07-08] MEDS: sennosides 8.6mg tablet PO SCH ×3 (08:00→19:22)
[2021-07-08] MEDS: FLUTICASONE IH SCH (08:00)
[2021-07-08] MEDS: nystatin 500,000 unit/5ML UD oral suspension PO SCH ×3 (08:00→19:23)
[2021-07-08] MEDS: guaiFENesin ER 600mg tablet PO SCH ×2 (08:00→19:42)
[2021-07-08] MEDS: dexamethasone inj 6 MG in dextrose 5%-water 100 ML IV SCH ×2 (08:00→19:22)
[2021-07-08] MEDS: amLODIPine 5mg tablet PO SCH ×2 (08:00→09:13)
[2021-07-08] MEDS: atorvastatin 10mg tablet PO SCH ×2 (08:00→09:12)
[2021-07-08] MEDS: K and/or MAG REPLACEMENT MC SCH ×2 (08:00→19:23)
[2021-07-08] MEDS: lisinopril 10 MG tablet PO SCH ×2 (08:00→09:13)
[2021-07-08] MEDS: VILANTEROL IH SCH (08:00)
[2021-07-08] MEDS: ALBUTEROL INHALER 1 PUFF/90 MCG INHALER IH SCH ×4 (08:16→20:40)
[2021-07-08 08:23] LABS: EOSINOPHILS % (AUTO) 0 % (0-6); NEUTROPHILS % (AUTO) 89.8 % (42-75)
[2021-07-08 08:24] LABS: BASOPHILS % (AUTO) 0.2 % (0-1); LYMPHOCYTES # (AUTO) 0.4 X10'3 (1.1-4.8); LYMPHOCYTES % (AUTO) 2.8 % (21-51); MONOCYTES # (AUTO) 1.1 X10'3 (0-0.9); MONOCYTES % (AUTO) 7.2 % (2-12); NEUTROPHILS # (AUTO) 13.6 X10'3 (1.8-7.7)
--- NOTE | 2021-07-08 08:25 | NUR ---
PT IS REFUSING TO LET RT ADD WATER TO THE HUMIDIFIER/WATER BOTTLE ON [facility]. EDUCATED PT ON IMPORTANCE OF HUMIDIFICATION. PT STATED I DON'T CARE I DON'T WANT IT, DO NOT PUT WATER IN THAT BOTTLE. PT ALSO REFUSING TO WEAR BIPAP/CPAP Addendum: 07/08/21 at 0865 by Abby Camacho RT Amended: Links added.
[2021-07-08 08:33] LABS: ALBUMIN 2.7 G/DL (3.4-5.0); ANION GAP 0 (8-16); BLOOD UREA NITROGEN 58 MG/DL (7-18); BUN/CREATININE RATIO 77.3 (6.6-38.0); CALCIUM 9.7 MG/DL (8.5-10.1); CHLORIDE 102 MMOL/L (99-107); CREATININE 0.75 MG/DL (0.40-0.90); GLUCOSE 153 MG/DL (70-104); POTASSIUM 5.6 MMOL/L (3.5-5.1); SODIUM 145 MMOL/L (135-145); eGFR 76 ML/MIN
[2021-07-08 08:41] LABS: TOTAL CARBON DIOXIDE 42.6 MMOL/L (24-32)
[2021-07-08 08:43] LABS: D-DIMER 0.46 MG/L FEU (0-0.50)
[2021-07-08 08:46] LABS: WHITE BLOOD COUNT 15.3 X10'3 (4.5-11.0)
[2021-07-08 08:47] LABS: HEMATOCRIT 53.8 % (35.0-45.0); HEMOGLOBIN 17.1 g/dl (12.0-16.0); MEAN CORPUSCULAR HEMOGLOBIN 27.9 PG (27.0-31.0); MEAN CORPUSCULAR HGB CONC 31.7 g/dL (33.0-36.5); MEAN CORPUSCULAR VOLUME 88.1 FL (78-98); MEAN PLATELET VOLUME 10.4 FL (7.4-10.4); PLATELET COUNT 72 X10'3 (140-440); RED BLOOD COUNT 6.11 X10'6 (4.20-5.60); RED CELL DISTRIBUTION WIDTH 15.3 % (11.5-14.5)
[2021-07-08 09:06] LABS: C-REACTIVE PROTEIN 0.69 MG/DL (0.0-0.5)
[2021-07-08] MEDS: insulin Lispro (HumaLOG) vial - multi-dose SQ SCH ×2 (09:10→18:54)
[2021-07-08] MEDS: furosemide 40mg/4ml inj IV SCH (09:11)
[2021-07-08] MEDS: HYDROcodone/acetaminophen 5mg/325mg tablet PO PRN (09:12)
[2021-07-08] MEDS: LORazepam 0.5 MG tablet PO PRN ×2 (09:13→21:09)
[2021-07-08] MEDS: fondaparinux 2.5 MG/0.5 ML syringe SUBCUT SCH (09:14)
[2021-07-08 09:25] LABS: HYPOCHROMASIA 1+; LARGE PLATELETS FEW; PLATELET ESTIMATE DECREASED
[2021-07-08 09:26] LABS: ELLIPTOCYTES FEW; STOMATOCYTES 1+; TEAR DROP CELLS FEW
[2021-07-08 10:00] VITALS: BP 132/70
[2021-07-08 14:00] VITALS: BP 129/75
[2021-07-08 18:00] VITALS: BP 114/61
[2021-07-08] MEDS: docusate sod 250mg capsule PO SCH (19:22)
[2021-07-08] MEDS: polyethylene glycol 3350 17gm powd pack PO SCH (19:22)
[2021-07-08] MEDS: insulin glargine (Lantus) pen - multi-dose SQ SCH (21:15)
[2021-07-08 22:04] VITALS: BP 109/75
[2021-07-08] MEDS: temazepam 15mg capsule PO PRN (23:57)
[2021-07-09 02:00] VITALS: BP 94/59
[2021-07-09 06:00] VITALS: BP 100/61
[2021-07-09] MEDS: furosemide 40mg/4ml inj IV SCH (07:48)
[2021-07-09] MEDS: sennosides 8.6mg tablet PO SCH ×2 (07:54→19:27)
[2021-07-09] MEDS: nystatin 500,000 unit/5ML UD oral suspension PO SCH ×3 (08:00→19:27)
[2021-07-09] MEDS: guaiFENesin ER 600mg tablet PO SCH ×2 (08:00→19:38)
[2021-07-09] MEDS: VILANTEROL IH SCH (08:00)
[2021-07-09] MEDS: lisinopril 10 MG tablet PO SCH (08:00)
[2021-07-09] MEDS: K and/or MAG REPLACEMENT MC SCH ×2 (08:00→19:22)
[2021-07-09] MEDS: FLUTICASONE IH SCH (08:00)
[2021-07-09] MEDS: amLODIPine 5mg tablet PO SCH (08:00)
[2021-07-09] MEDS: lactose-reduced food (Ensure Enlive) - 237ml bottle PO SCH ×6 (08:00→18:00)
[2021-07-09] MEDS: lactobacillus rhamnosus 10,000 MMU CELLS/CAPSULE PO SCH ×2 (08:29→19:27)
[2021-07-09] MEDS: atorvastatin 10mg tablet PO SCH (08:29)
[2021-07-09] MEDS: ALBUTEROL INHALER 1 PUFF/90 MCG INHALER IH SCH ×3 (08:36→20:43)
[2021-07-09 10:00] VITALS: BP 107/64
--- NOTE | 2021-07-09 12:36 | NUR ---
PT REFUSES WATER IN [place] Addendum: 07/09/21 at 1238 by Abby GILL Amended: Links added.
[2021-07-09 14:00] VITALS: BP 96/55
[2021-07-09] MEDS: insulin Lispro (HumaLOG) vial - multi-dose SQ SCH ×2 (14:03→19:01)
[2021-07-09] MEDS: dexamethasone inj 6 MG in dextrose 5%-water 100 ML IV SCH ×2 (14:04→19:27)
[2021-07-09] MEDS: fondaparinux 2.5 MG/0.5 ML syringe SUBCUT SCH (14:04)
[2021-07-09] MEDS: HYDROcodone/acetaminophen 10/325mg tab PO PRN ×2 (14:16→19:02)
[2021-07-09 18:00] VITALS: BP 107/60
--- NOTE | 2021-07-09 18:34 | NUR ---
Potassium 5.6, Dr. Thomas was made aware.
[2021-07-09] MEDS: docusate sod 250mg capsule PO SCH (19:27)
[2021-07-09] MEDS: polyethylene glycol 3350 17gm powd pack PO SCH (19:27)
[2021-07-09] MEDS: insulin glargine (Lantus) pen - multi-dose SQ SCH (21:11)
[2021-07-09 22:00] VITALS: BP 105/59
[2021-07-10 02:00] VITALS: BP 95/65
[2021-07-10 06:00] VITALS: BP 117/74
[2021-07-10] MEDS: lactobacillus rhamnosus 10,000 MMU CELLS/CAPSULE PO SCH ×2 (08:00→21:22)
[2021-07-10] MEDS: guaiFENesin ER 600mg tablet PO SCH ×2 (08:00→21:22)
[2021-07-10] MEDS: sennosides 8.6mg tablet PO SCH (08:00)
[2021-07-10] MEDS: nystatin 500,000 unit/5ML UD oral suspension PO SCH ×3 (08:00→21:22)
[2021-07-10] MEDS: atorvastatin 10mg tablet PO SCH (08:00)
[2021-07-10] MEDS: FLUTICASONE IH SCH (08:00)
[2021-07-10] MEDS: lisinopril 10 MG tablet PO SCH (08:00)
[2021-07-10] MEDS: fondaparinux 2.5 MG/0.5 ML syringe SUBCUT SCH (08:00)
[2021-07-10] MEDS: K and/or MAG REPLACEMENT MC SCH ×2 (08:00→20:00)
[2021-07-10] MEDS: lactose-reduced food (Ensure Enlive) - 237ml bottle PO SCH ×6 (08:00→19:00)
[2021-07-10] MEDS: amLODIPine 5mg tablet PO SCH (08:00)
[2021-07-10] MEDS: VILANTEROL IH SCH (08:00)
[2021-07-10] MEDS: dexamethasone inj 6 MG in dextrose 5%-water 100 ML IV SCH ×2 (09:00→21:22)
[2021-07-10] MEDS: furosemide 40mg/4ml inj IV SCH (09:00)
[2021-07-10] MEDS: ALBUTEROL INHALER 1 PUFF/90 MCG INHALER IH SCH ×2 (09:00→21:04)
[2021-07-10] MEDS: nystatin 15 GM powder TP SCH (09:04)
[2021-07-10] MEDS: LORazepam 0.5 MG tablet PO PRN (10:11)
--- NOTE | 2021-07-10 15:52 | NUR ---
F/u 07/10: Pt PO remains poor refusing majority of meal/ONS intake past 6 days not meeting needs. Pt reports unable to swallow though SEGREGATOR BSS recommends continuing full liquids given respiratory status per EMR. Pt currently on 15L high flow w/ non-rebreather and BIPAP at night per EMR. RD d/w RN regarding TF at this time if MD/pt agreeable given pt continued poor nutrition status. Pt would benefit from post-pyloric NG feeds if TF to optimize tolerance on BIPAP; TF recs below in case to start. Given severe weakness and most recent PO trends pt now meets minimum severe malnutrition criteria; MD notified. LBM 07/07 s/p enema 07/07 receiving routine colace and senna. Will continue to monitor. Recommendations: 1) Consider post-pyloric NG feeds if MD/pt agreeable given refusing majority of PO 6 days. IF TF Vital AF at 60ml/hr 2) Full liquids per pt preference; Ensure Enlive TIDWM; encourage PO 3) Routine bowel care; 4) Scaled weight this admit; weekly scaled weights thereafter 5) IF pt declines EN; consider PN to optimize nutrition needs this admit Addendum: 07/10/21 at [address] Amended: Links added.
[2021-07-10] MEDS ORDERED: LORazepam 1 MG tablet PO PRN (16:00)
[2021-07-10] MEDS: LORazepam 2 mg/ml vial IV PRN (16:32)
--- NOTE | 2021-07-10 16:55 | NUR ---
1700 accu check refused
--- NOTE | 2021-07-10 17:45 | NUR ---
Miss Soni has been assessed as indicated. She has been very uncomfortable this shift. This has been related to her constipation. She cannot tolerate lying on her side, which would be the best position to move her bowels. She wanted to dangle her legs at the bedside. PT was called in to assist. She was unable to tolerate this. She switches from NRB and high flow nasal canula to Bipap at 100% it's her choice. She is very anxious as a result of the discomfort. her resp rate has fernando over 30 for a great part of the afternoon. She has been given IV Ativan via a newly modified medication order. She yells out frequently for help. But this field underwriter was unable to successfully relive her distress. She was given a suppository that allowed her to have a small soft rust colored stool. She states that she cannot swallow as a result of this she had refused dinning trays and all oral medications. She was seen by ST. she will remain on a full liquid diet. She declined PO meds. She does enjoy ice chips and sodas with no difficulty. This field underwriter spoke with her daughter, Vikki Reyes today at length( [phone].) She is moving to [place] and is very concerned with where her mother will reside after [place]. Miss Soni is still in distress and yelling out at this time.
--- NOTE | 2021-07-10 18:45 | NUR ---
Patient in room ORTHO 4012. I have received report from LAYNE FLORES and had the opportunity to ask questions and assume patient care.
[2021-07-10 22:00] VITALS: BP 79/50
[2021-07-10] MEDS: insulin glargine (Lantus) pen - multi-dose SQ SCH (22:24)
[2021-07-10 22:30] VITALS: BP 89/49
[2021-07-11] MEDS: acetaminophen 325mg tablet PO PRN (01:07)
[2021-07-11 02:00] VITALS: BP 104/57
[2021-07-11 06:00] VITALS: BP 111/53
--- NOTE | 2021-07-11 06:31 | NUR ---
Problems reprioritized. Patient report given, questions answered & plan of care reviewed with IMELDA FLORES.
--- NOTE | 2021-07-11 06:57 | NUR ---
Patient in room ORTHO 4012. I have received report from SANDRA Larry and had the opportunity to ask questions and assume patient care.
--- NOTE | 2021-07-11 07:00 | NUR ---
pt is refusing wound care and hygiene at this time, continue to educate and encourage wound care and hygiene
[2021-07-11] MEDS: K and/or MAG REPLACEMENT MC SCH ×2 (07:23→20:00)
[2021-07-11] MEDS: lactose-reduced food (Ensure Enlive) - 237ml bottle PO SCH ×4 (07:23→13:00)
[2021-07-11] MEDS: furosemide 40mg/4ml inj IV SCH (07:23)
[2021-07-11] MEDS: lisinopril 10 MG tablet PO SCH (07:24)
[2021-07-11] MEDS: amLODIPine 5mg tablet PO SCH (07:24)
[2021-07-11] MEDS: dexamethasone inj 6 MG in dextrose 5%-water 100 ML IV SCH ×2 (07:25→20:00)
[2021-07-11] MEDS: guaiFENesin ER 600mg tablet PO SCH (07:26)
[2021-07-11] MEDS: nystatin 500,000 unit/5ML UD oral suspension PO SCH ×2 (07:27→13:00)
[2021-07-11] MEDS: fondaparinux 2.5 MG/0.5 ML syringe SUBCUT SCH (07:28)
[2021-07-11] MEDS: lactobacillus rhamnosus 10,000 MMU CELLS/CAPSULE PO SCH (07:40)
[2021-07-11] MEDS: VILANTEROL IH SCH ×2 (07:46→09:21)
[2021-07-11] MEDS: FLUTICASONE IH SCH ×2 (07:46→09:21)
[2021-07-11] MEDS: ALBUTEROL INHALER 1 PUFF/90 MCG INHALER IH SCH ×2 (09:00→14:41)
[2021-07-11] MEDS: insulin Lispro (HumaLOG) vial - multi-dose SQ SCH (09:27)
--- NOTE | 2021-07-11 09:41 | NUR ---
betty daughter of pt called and said that md wants to place feeding tube because pt is not eating, betty said that md said that pt declined feeding tube when asked to have one placed betty, daughter explained to pt that feeding tube will help make her better, pt now consenting to having feeding tube placed, daughter also okayed feeding tube placement
--- NOTE | 2021-07-11 12:58 | NUR ---
pt is not eating and her bg is 136, going to continue to monitor bg and not admin insulin at this time
--- NOTE | 2021-07-11 13:51 | NUR ---
woc at bedside cleaning/assessing pt buttock wound at this time
[2021-07-11 14:00] VITALS: BP 115/62
--- NOTE | 2021-07-11 15:28 | NUR ---
TF Consult: Pt PO remains poor and both pt/MD agreeable to NG feeds per RN. MD notified of TF recs below. LBM 07/10. Will continue to monitor for TF tolerance and further nutrition support needs. Recommendations: 1) Continuous NGTF per MD using Vital AF at 60ml/hr goal; to provide 1440ml volume/day, 1728 kcals, 1166ml water, and 108g protein. 2) additional water flush 200ml Q4H; monitor serum Na for adjustment needs 3) Routine bowel care; 4) Scaled weight this admit; weekly scaled weights thereafter Addendum: 07/11/21 at [address] Amended: Links added.
[2021-07-11] MEDS ORDERED: insulin regular, human U-100 3ml vial - multi-dose SQ SCH (15:47)
[2021-07-11] MEDS ORDERED: acetaminophen 325mg/10.15ml oral unit dose solution CORPAK PRN ×2 (15:59→16:00)
[2021-07-11] MEDS ORDERED: amLODIPine 5mg tablet CORPAK SCH (16:14)
[2021-07-11] MEDS ORDERED: dextrose ORAL solution 15 GM/59 ML bottle CORPAK PRN ×2 (16:14→16:16)
[2021-07-11] MEDS ORDERED: lactose-reduced food (Ensure Enlive) - 237ml bottle CORPAK SCH ×2 (16:15→16:19)
--- NOTE | 2021-07-11 16:20 | NUR ---
notified defense analyst that pt is refusing/unable to stand to have corkpak placed
--- NOTE | 2021-07-11 16:23 | NUR ---
PAGER ID: [phone] MESSAGE: Sydnee [phone], Patient in room 4012B Minerva Zachariah refused /unable to stand Corpak placement. Already notified rickshaw driver.
[2021-07-11] MEDS ORDERED: lisinopril 10 MG tablet CORPAK SCH (16:26)
[2021-07-11] MEDS ORDERED: HYDROcodone/acetaminophen 7.5MG/325MG per 15ml UD CUP CORPAK PRN ×2 (16:29→16:30)
[2021-07-11] MEDS ORDERED: guaiFENesin/DM 10ml UD oral syrup OGT PRN (16:30)
[2021-07-11] MEDS ORDERED: mag hydrox/Alum hydrox/simeth 30ml oral suspension OGT PRN (16:31)
[2021-07-11] MEDS ORDERED: LORazepam 1 MG tablet OGT PRN (16:31)
[2021-07-11] MEDS ORDERED: magnesium hydroxide 30ml (MOM) UD suspension OGT PRN (16:32)
[2021-07-11] MEDS ORDERED: guaiFENesin/DM 10ml UD oral syrup CORPAK PRN (16:33)
[2021-07-11] MEDS ORDERED: LORazepam 1 MG tablet CORPAK PRN (16:34)
[2021-07-11] MEDS ORDERED: mag hydrox/Alum hydrox/simeth 30ml oral suspension CORPAK PRN (16:34)
[2021-07-11] MEDS ORDERED: magnesium hydroxide 30ml (MOM) UD suspension CORPAK PRN (16:35)
[2021-07-11] MEDS ORDERED: lactobacillus rhamnosus 10,000 MMU CELLS/CAPSULE CORPAK SCH (16:35)
[2021-07-11] MEDS ORDERED: temazepam 15mg capsule CORPAK PRN (16:37)
[2021-07-11] MEDS ORDERED: nystatin 500,000 unit/5ML UD oral suspension CORPAK SCH (16:37)
[2021-07-11] MEDS ORDERED: ondansetron 4mg rapidly disintigrating tab CORPAK PRN (16:41)
[2021-07-11 18:00] VITALS: BP 132/66
--- NOTE | 2021-07-11 18:50 | NUR ---
Problems reprioritized. Patient report given, questions answered & plan of care reviewed with Maria T FLORES.
[2021-07-11] MEDS ORDERED: guaiFENesin 200 MG/10 ML oral syrup UD cup CORPAK SCH (20:00)
[2021-07-11 22:00] VITALS: BP_SYST 146; BP_SYST 89; BP_DIAS 58; BP_DIAS 71
[2021-07-11] MEDS: insulin glargine (Lantus) pen - multi-dose SQ SCH (22:03)
[2021-07-11 23:27] VITALS: BP 112/56
[2021-07-12 02:00] VITALS: BP 107/72
[2021-07-12 06:00] VITALS: BP 123/81
[2021-07-12] MEDS: ALBUTEROL INHALER 1 PUFF/90 MCG INHALER IH SCH (07:22)
[2021-07-12] MEDS: FLUTICASONE IH SCH (07:23)
[2021-07-12] MEDS: VILANTEROL IH SCH (07:23)
[2021-07-12] MEDS ORDERED: sodium bicarbonate (8.4%) 1 mEq/ml syringe ONE (08:00)
[2021-07-12] MEDS ORDERED: rocuronium 10mg/ml inj IV ONE (08:00)
[2021-07-12] MEDS ORDERED: etomidate 2mg/ml inj. ONE (08:00)
[2021-07-12] MEDS ORDERED: sod chloride 0.9% 10ml flush syringe IV ONE (08:00)
[2021-07-12] MEDS ORDERED: furosemide 40mg/4ml inj IV SCH (08:00)
[2021-07-12 08:37] LABS: BASOPHILS % (AUTO) 0.2 % (0-1); EOSINOPHILS % (AUTO) 0 % (0-6); LYMPHOCYTES # (AUTO) 0.3 X10'3 (1.1-4.8); LYMPHOCYTES % (AUTO) 1.8 % (21-51); MEAN PLATELET VOLUME 12.3 FL (7.4-10.4); MONOCYTES # (AUTO) 0.8 X10'3 (0-0.9); MONOCYTES % (AUTO) 4.6 % (2-12); NEUTROPHILS # (AUTO) 15.9 X10'3 (1.8-7.7); NEUTROPHILS % (AUTO) 93.4 % (42-75); PLATELET COUNT 84 X10'3 (140-440)
[2021-07-12] MEDS: dexamethasone inj 6 MG in dextrose 5%-water 100 ML IV SCH (08:41)
[2021-07-12 09:08] LABS: HEMATOCRIT 52.7 % (35.0-45.0); HEMOGLOBIN 17.4 g/dl (12.0-16.0); MEAN CORPUSCULAR HEMOGLOBIN 28.1 PG (27.0-31.0); MEAN CORPUSCULAR HGB CONC 32.9 g/dL (33.0-36.5); MEAN CORPUSCULAR VOLUME 85.4 FL (78-98); RED BLOOD COUNT 6.18 X10'6 (4.20-5.60)
[2021-07-12] MEDS: LORazepam 2 mg/ml vial IV PRN (09:08)
[2021-07-12 09:09] LABS: RED CELL DISTRIBUTION WIDTH 15.5 % (11.5-14.5)
[2021-07-12 09:11] LABS: ALANINE AMINOTRANSFERASE 63 U/L (12-78); ALBUMIN 2.6 G/DL (3.4-5.0); ALBUMIN/GLOBULIN RATIO 0.8 (1.1-1.5); ANION GAP 6 (8-16); ASPARTATE AMINO TRANSFERASE 22 U/L (10-37); BLOOD UREA NITROGEN 97 MG/DL (7-18); BUN/CREATININE RATIO 84.3 (6.6-38.0); CHLORIDE 103 MMOL/L (99-107); CREATININE 1.15 MG/DL (0.40-0.90); GLUCOSE 156 MG/DL (70-104); POTASSIUM 4.9 MMOL/L (3.5-5.1); SODIUM 146 MMOL/L (135-145); TOTAL CARBON DIOXIDE 36.8 MMOL/L (24-32); TOTAL PROTEIN 5.9 G/DL (6.4-8.2); eGFR 46 ML/MIN
--- NOTE | 2021-07-12 09:20 | NUR ---
RAPID RESPONSE PAGED
--- NOTE | 2021-07-12 09:25 | NUR ---
Charge nurse Vikki notified patient saturation start going down 82% , she restart the Bipap.
--- NOTE | 2021-07-12 09:29 | NUR ---
Page Sent PAGER ID: [phone] MESSAGE: DANUTA 5199-RE: JAZ TIWARI 4012B...RAPID RESPONSE PAGED...[id number] MAINTAINING 70'S WITH BIPAP
[2021-07-12 09:36] LABS: ABG BASE EXCESS 6.6 mmol/L (-2.0-2.0); ABG HCO3 35.4 mmol/L (22.0-26.0); ABG PCO2 (T) 66.1 mmHg (32.0-45.0); ABG PO2 (T) 43.8 mmHg (75.0-100.0); ALLEN'S TEST POSITIVE; FCOHb 0.3 % (0.0-3.9); FMetHb 0.2 % (0.0-1.5); FO2Hb 77.6 % (94-97); RESPIRATORY RATE 12 b/min; TIDAL VOLUME 603 mL; TOTAL HEMOGLOBIN 18.2 G/dl (12.0-16.0)
--- NOTE | 2021-07-12 10:00 | NUR ---
Patient was transferred to the ICU by order Dr. Hopkins.
[2021-07-12 10:06] LABS: C-REACTIVE PROTEIN 4.24 MG/DL (0.0-0.5)
[2021-07-12 10:15] VITALS: BP 81/58
--- NOTE | 2021-07-12 10:15 | NUR ---
Received patient from Ortho floor s/p rapid response. Patient drowsy but following commands. In sinus rhythm. On BiPAP with FiO2 100%. Sats in low 80's. 22g IV in patient's right hand. Dr. Hollis & Daryn KEN into see patient. Right pneumo noted on CXR. Pt premedicated with Etomidate 20mg & Rocuronium 100mg & intubated @ 1025. After intubation, DARYN KEN placed right IJ central line. While placing line, patient's BP dropped with SBP in 50's. Levophed immediately started. Noted to have ST elevation. Pt went into Vtach @ 1045 without a pulse. Code Blue called. See Code Blue sheet for details.
[2021-07-12 10:25] VITALS: BP 178/56
[2021-07-12 10:35] VITALS: BP 228/99
[2021-07-12] MEDS ORDERED: propofol 1000mg/100ml bottle 100 ML IV SCH (10:35)
[2021-07-12 10:45] VITALS: BP 53/37
== END 2021-07-12 11:18 | DRG 871 ==
LOC: ER 12:47 → ED HOLD 19:49 → ORTHO 4S 06-21 00:08 → CICU 2S 07-12 10:15
PROVIDERS: ADMIT Family Medicine; ATTEND Family Medicine
PROC: B32T1ZZ Computerized Tomography (CT Scan) of Left Pulmonary Artery using Low Osmolar Contrast (ICD-10-PCS; 2021-06-20)
PROC: B3201ZZ Computerized Tomography (CT Scan) of Thoracic Aorta using Low Osmolar Contrast (ICD-10-PCS; 2021-06-20)
PROC: B32S1ZZ Computerized Tomography (CT Scan) of Right Pulmonary Artery using Low Osmolar Contrast (ICD-10-PCS; 2021-06-20)
PROC: XW033E5 Introduction of Remdesivir Anti-infective into Peripheral Vein, Percutaneous Approach, New Technology Group 5 (ICD-10-PCS; principal; 2021-06-21)
PROC: 3E0234Z Introduction of Serum, Toxoid and Vaccine into Muscle, Percutaneous Approach (ICD-10-PCS; 2021-06-21)
PROC: 5A0935A Assistance with Respiratory Ventilation, Less than 24 Consecutive Hours, High Flow/Velocity Cannula (ICD-10-PCS; 2021-06-23)
PROC: 5A0935A Assistance with Respiratory Ventilation, Less than 24 Consecutive Hours, High Flow/Velocity Cannula (ICD-10-PCS; 2021-06-24)
PROC: 5A0945A Assistance with Respiratory Ventilation, 24-96 Consecutive Hours, High Flow/Velocity Cannula (ICD-10-PCS; 2021-06-25)
PROC: 5A0945A Assistance with Respiratory Ventilation, 24-96 Consecutive Hours, High Flow/Velocity Cannula (ICD-10-PCS; 2021-06-27)
PROC: 5A0935A Assistance with Respiratory Ventilation, Less than 24 Consecutive Hours, High Flow/Velocity Cannula (ICD-10-PCS; 2021-06-30)
PROC: 5A0945A Assistance with Respiratory Ventilation, 24-96 Consecutive Hours, High Flow/Velocity Cannula (ICD-10-PCS; 2021-07-02)
PROC: 5A0935A Assistance with Respiratory Ventilation, Less than 24 Consecutive Hours, High Flow/Velocity Cannula (ICD-10-PCS; 2021-07-05)
PROC: 5A0935A Assistance with Respiratory Ventilation, Less than 24 Consecutive Hours, High Flow/Velocity Cannula (ICD-10-PCS; 2021-07-06)
PROC: 5A0935A Assistance with Respiratory Ventilation, Less than 24 Consecutive Hours, High Flow/Velocity Cannula (ICD-10-PCS; 2021-07-07)
PROC: 5A09357 Assistance with Respiratory Ventilation, Less than 24 Consecutive Hours, Continuous Positive Airway Pressure (ICD-10-PCS; 2021-07-08)
PROC: 5A0935A Assistance with Respiratory Ventilation, Less than 24 Consecutive Hours, High Flow/Velocity Cannula (ICD-10-PCS; 2021-07-08)
PROC: 5A09357 Assistance with Respiratory Ventilation, Less than 24 Consecutive Hours, Continuous Positive Airway Pressure (ICD-10-PCS; 2021-07-09)
PROC: 5A0935A Assistance with Respiratory Ventilation, Less than 24 Consecutive Hours, High Flow/Velocity Cannula (ICD-10-PCS; 2021-07-09)
PROC: 5A09357 Assistance with Respiratory Ventilation, Less than 24 Consecutive Hours, Continuous Positive Airway Pressure (ICD-10-PCS; 2021-07-10)
PROC: 5A0935A Assistance with Respiratory Ventilation, Less than 24 Consecutive Hours, High Flow/Velocity Cannula (ICD-10-PCS; 2021-07-10)
PROC: 5A0935A Assistance with Respiratory Ventilation, Less than 24 Consecutive Hours, High Flow/Velocity Cannula (ICD-10-PCS; 2021-07-11)
PROC: 5A09357 Assistance with Respiratory Ventilation, Less than 24 Consecutive Hours, Continuous Positive Airway Pressure (ICD-10-PCS; 2021-07-12)
PROC: 5A0935A Assistance with Respiratory Ventilation, Less than 24 Consecutive Hours, High Flow/Velocity Cannula (ICD-10-PCS; 2021-07-12)
PROC: 5A1935Z Respiratory Ventilation, Less than 24 Consecutive Hours (ICD-10-PCS; 2021-07-12)
PROC: 0BH17EZ Insertion of Endotracheal Airway into Trachea, Via Natural or Artificial Opening (ICD-10-PCS; 2021-07-12)
PROC: 5A12012 Performance of Cardiac Output, Single, Manual (ICD-10-PCS; 2021-07-12)
PROC: 05HY33Z Insertion of Infusion Device into Upper Vein, Percutaneous Approach (ICD-10-PCS; 2021-07-12)
PROC: B54MZZA Ultrasonography of Right Upper Extremity Veins, Guidance (ICD-10-PCS; 2021-07-12)
PROC: 0W9900Z Drainage of Right Pleural Cavity with Drainage Device, Open Approach (ICD-10-PCS; 2021-07-12)
PROC: 5A2204Z Restoration of Cardiac Rhythm, Single (ICD-10-PCS; 2021-07-12)
DX: A41.89 Other specified sepsis (principal); U07.1 COVID-19; J12.82 Pneumonia due to coronavirus disease 2019; J96.21 Acute and chronic respiratory failure with hypoxia; G93.41 Metabolic encephalopathy; I26.09 Other pulmonary embolism with acute cor pulmonale; I50.33 Acute on chronic diastolic (congestive) heart failure; J96.22 Acute and chronic respiratory failure with hypercapnia; N17.0 Acute kidney failure with tubular necrosis; R65.21 Severe sepsis with septic shock; N39.0 Urinary tract infection, site not specified; E44.0 Moderate protein-calorie malnutrition; E66.2 Morbid (severe) obesity with alveolar hypoventilation; E87.3 Alkalosis; I13.0 Hypertensive heart and chronic kidney disease with heart failure and stage 1 through stage 4 chronic kidney disease, or unspecified chronic kidney disease; J44.0 Chronic obstructive pulmonary disease with (acute) lower respiratory infection; J93.9 Pneumothorax, unspecified; Z68.43 Body mass index [BMI] 50.0-59.9, adult; I47.2 Ventricular tachycardia; E87.0 Hyperosmolality and hypernatremia; D68.69 Other thrombophilia; E87.6 Hypokalemia; E78.5 Hyperlipidemia, unspecified; B96.4 Proteus (mirabilis) (morganii) as the cause of diseases classified elsewhere; D69.6 Thrombocytopenia, unspecified; E11.22 Type 2 diabetes mellitus with diabetic chronic kidney disease; E78.00 Pure hypercholesterolemia, unspecified; R23.0 Cyanosis; N18.30 Chronic kidney disease, stage 3 unspecified; L30.4 Erythema intertrigo; B96.20 Unspecified Escherichia coli [E. coli] as the cause of diseases classified elsewhere; I46.9 Cardiac arrest, cause unspecified; K59.00 Constipation, unspecified; Z53.20 Procedure and treatment not carried out because of patient's decision for unspecified reasons; Z74.01 Bed confinement status; Z85.42 Personal history of malignant neoplasm of other parts of uterus; Z85.43 Personal history of malignant neoplasm of ovary; Z87.891 Personal history of nicotine dependence; Z90.710 Acquired absence of both cervix and uterus; Z91.19 Patient's noncompliance with other medical treatment and regimen; Z99.3 Dependence on wheelchair; Z99.81 Dependence on supplemental oxygen; Z23 Encounter for immunization; Z79.899 Other long term (current) drug therapy
CPT/HCPCS: 36415; 36600; 71045; 71275; 80048; 80053; 80061; 81001; 82728; 82803; 82948; 83036; 83605; 83615; 83735; 83880; 84100; 84132; 84145; 84443; 84484; 85007; 85008; 85018; 85025; 85379; 86140; 87040; 87077; 87081; 87088; 87186; 87635; 92508; 92616; 92950; 93005; 93308; 93925; 94002; 94640; 94660; 94760; 97110; 97161; 97530; 99285; C9803; G0378; J0171; J0696; J1100; J1650; J1652; J1815; J1940; J2060; J2185; J3490; J7030; J7060; J8540; Q9967